=== PATIENT | female | born 2000 | race Two or more races ===

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

== ENCOUNTER 2023-04-18 07:21 | Inpatient (IN) ==
[2023-04-18] MEDS: MoRPHine SULFATE 2 MG/ML CARP IV STA (07:47)
[2023-04-18] MEDS: SODIUM CHLORIDE 0.9% 500 ML IV ONE (07:47)
[2023-04-18] MEDS: ONDANSETRON INJ 2 MG/ML 2 ML VIAL IV STA (07:48)
--- NOTE | 2023-04-18 07:54 | Emergency Department Note ---
Impression & Plan SOB (shortness of breath), Pulmonary emboli, Pleuritic chest pain, Tachycardia ED Provider Note NAME: CLARA CRUMP AGE: 22 SEX: F : 2000 ARRIVES VIA: Walk-In INFORMANT: [Patient] ED PROVIDER(S): [Jose Servin MD] CHIEF COMPLAINT: Abnormal testing HISTORY OF PRESENT ILLNESS: The patient is a 22-year-old female who states that she is back as advised for a potential clot in her lung. The patient was seen 2 days ago for discomfort and a CT of the chest was done for PE. It was read as negative. Patient was here earlier today for ongoing symptoms and a workup was done showing suspected pneumonia. After her discharge today, radiology re-read the CT from 2 days ago and felt that a PE may have been present and missed. The patient was thus called back for reevaluation. The patient states that she had an extensive plastic surgery procedure in [place] about a month ago. [place] and arrived on April 03---15 days ago. The patient states that she has noticed some shortness of breath and also some right posterior back pain. The back pain has become pleuritic. The discomfort and the shortness of breath is what prompted her visit to our ER. The patient did have a fever at times with symptoms, she had a cough but that seems to have resolved. The patient has not noticed pain in her calves but she has noticed some bilateral leg swelling since surgery. PMHx/PSHx/Social Hx: See Below PHYSICAL EXAM: GENERAL: Patient is in no acute distress. HEENT: No acute trauma, normocephalic atraumatic, mucous membranes moist, no nasal congestion. NECK: No stridor, no adenopathy, no meningismus, trachea is midline. LUNGS: Clear to auscultation bilaterally, no wheeze, no rhonchi, breath sounds equal. Breath sounds diminished bilaterally. HEART: Mildly tachycardic, regular rhythm, no murmurs. ABDOMEN: Soft, nontender, no peritonitis. EXTREMITIES: No cyanosis, full range of motion of all the joints without pain or difficulty. NEUROLOGIC: Oriented x 3, no acute motor or sensory deficits, no focal weakness. SKIN: No jaundice, no diaphoresis. DIFFERENTIAL DIAGNOSIS: PE, pneumonia, pneumothorax, coagulopathy, pleurisy, among others. EMERGENCY DEPARTMENT PROCEDURES: MEDICAL DECISION MAKING: The patient had been called back to this ED as a radiology over-read showed concern for possible PE. Patient's initial CT imaging was read as no findings of PE. The patient did complain of pleuritic right-sided chest pain. She had recently traveled by plane and had recently undergone a surgical procedure. ECG showed a sinus rhythm, no acute ischemia. Cardiac enzyme testing x 1 does not show evidence for acute cardiac injury. On exam, her lungs were clear. She was not hypoxic or toxic. A REPEAT CT was done for PE. Bilateral segmental and subsegmental pulmonary emboli were seen. A pulmonary infarct was thought likely. I talked to the patient and her family about the findings. Admission is clearly indicated. The patient was ordered for IV morphine as needed for pain. She was given an IV heparin bolus and placed on a heparin drip. She was ordered for IV Zofran as needed for nausea. A 500 cc saline bolus was ordered. I did speak with case management, the on-call hospitalist has been consulted. I do think the findings on today's CT explain her discomfort. Prior/Outside records/notes reviewed: Previous ED notes from prior visits for the same complaint. ECG per my interpretation: Indication was chest pain. The ECG shows a normal sinus rhythm with a rate of 85. There is no ST elevation, no PVCs. There is some poor R wave progression. QTc is 437. Continuous Cardiac Monitoring per my interpretation: An order was placed for continuous cardiac monitoring. The monitor shows a rate of 96 with normal sinus rhythm. Imaging/x-ray results per my interpretation: Chronic Medical/Social conditions affecting care: College student Care/Management discussed with: Case management, the on-call hospitalist. Level of care consideration(s): After review of the information above and other included data: --I believe the patient requires escalation of care to admission DISPOSITION: Admission Past Med/Surg History Medical History Eating disorder Borderline personality disorder Depression Acute pancreatitis Morbid obesity with BMI of 40.0-44.9, adult Surgical History Status following surgery for weight loss GASTRIC BALLOON Family History Other Eating disorder Social History Smoking Status: Never smoker Hx Alcohol Use: No Hx Substance Use: No Preferred Language: Upper Sorbian Communication Ability: Effective Offset Printing Pressmen Required: No Beliefs That Will Affect Care: None Current Living Situation: Other Current Living Situation Comment: roommate current occupational status: student Feels Safe at Home: Yes Assistive Devices: None Allergies Allergies Allergy/AdvReac Type Severity Reaction Status Date / Time No Known Allergies Allergy Verified 04/18/23 08:41 Home Meds Previous Rx's Medication Instructions Recorded amoxicillin 875 mg-potassium 1 tab PO BID 5 days #10 tabs 04/17/23 clavulanate 125 mg tablet doxycycline hyclate 100 mg capsule 100 mg PO BID 5 days #10 caps 04/17/23 ondansetron 4 mg disintegrating 4 mg PO Q6H PRN nausea and 04/18/23 tablet vomiting #12 tabs Results & Data (ED) Vital Signs Vital Signs - 24 hr 04/18/23 07:22 04/18/23 07:52 04/18/23 08:21 Temperature 36.5 C Temperature Source Temporal Artery Scan Pulse Rate 96 H 94 H 98 H Pulse Rate from SpO2 Sensor Pulse Rhythm Regular Respiratory Rate 20 20 Respiratory Effort / Characteristics Non-Labored Spontaneous Respiratory Depth Normal Blood Pressure 121/47 L 144/89 H Blood Pressure Mean 71 102 Pulse Oximetry 97 99 Oxygen Delivery Method Room Air Sepsis Recent Fever Within 48 Hours No Sepsis New/Unexplained Change in Mental Status No Sepsis Action Taken by Nursing No Action Required 04/18/23 08:30 04/18/23 09:46 Temperature Temperature Source Pulse Rate 83 84 Pulse Rate from SpO2 Sensor 82 Pulse Rhythm Respiratory Rate 20 22 Respiratory Effort / Characteristics Respiratory Depth Blood Pressure 136/75 Blood Pressure Mean 96 Pulse Oximetry 100 99 Oxygen Delivery Method Sepsis Recent Fever Within 48 Hours Sepsis New/Unexplained Change in Mental Status Sepsis Action Taken by Custodial Medications Current Medication List: was personally reviewed by me Laboratory Data Attestation: I reviewed the patient's lab results. Lab Results 04/18/23 Range/Units 07:38 Troponin I High Sens 2.8 (0-14) pg/ml Administered Medications Acetaminophen (Acetaminophen 325 Mg Tab) 650 mg PO Q6H PRN PRN Reason: pain(1-4),headache,fever Stop: 05/18/23 10:29 Last Admin: 04/18/23 11:14 Dose: 650 mg Documented By: GINNA Heparin Sodium/Dextrose (Heparin Sodium/Dextrose) 25,000 units in 500 mls @ 16 mls/hr IV .Q24H ALICE; Protocol Stop: 05/18/23 09:14 Last Admin: 04/18/23 10:02 Dose: 800 units/hr, 16 mls/hr Documented By: MMRodri Co-signed By: GLEN Discontinued Medications Heparin Sodium (Porcine) (Heparin Sod (Porcine) 1000 Unit/Ml) 4,000 units IV NOW ONE Stop: 04/18/23 09:46 Last Admin: 04/18/23 10:02 Dose: 4,000 units Documented By: AMAURY Co-signed By: GLEN Heparin Sodium/Dextrose (Heparin Iv Adult Wt-Based Low-Dose W/ Initial Bolus Protocol) 1 each IV NOW STA; Protocol Stop: 04/18/23 08:59 Last Admin: 04/18/23 10:12 Dose: Not Given Documented By: GLEN Hydromorphone HCl (Hydromorphone Inj 0.5 Mg/0.5 Ml Syr) 0.5 mg IV Q6H PRN PRN Reason: Pain(5+) Stop: 05/02/23 12:28 Last Admin: 04/18/23 12:43 Dose: 0.5 mg Documented By: GINNA Sodium Chloride (Nss) 500 mls @ 999 mls/hr IV .Q31M ONE Stop: 04/18/23 07:53 Last Infusion: 04/18/23 08:24 Dose: Infused Documented By: Admin: 04/18/23 07:47 Dose: 999 mls/hr Documented By: GLEN Ioversol (Optiray 320 125ml) 118 ml IV ONCE ONE Stop: 04/18/23 08:19 Last Admin: 04/18/23 08:18 Dose: 118 ml Documented By: KRISTEL Morphine Sulfate (Morphine Sulfate 2 Mg/Ml Carp) 2 mg IV NOW STA Stop: 04/18/23 07:24 Last Admin: 04/18/23 07:47 Dose: 2 mg Documented By: GLEN Morphine Sulfate (Morphine Sulfate 2 Mg/Ml Carp) 2 mg IV Q15M PRN PRN Reason: Pain Stop: 05/02/23 07:22 Last Admin: 04/18/23 08:22 Dose: 2 mg Documented By: GLEN Morphine Sulfate (Morphine Sulfate 2 Mg/Ml Carp) 2 mg IV Q3H PRN PRN Reason: Pain(5+) Stop: 05/02/23 07:22 Last Admin: 04/18/23 10:42 Dose: 2 mg Documented By: GLEN Ondansetron HCl (Ondansetron Inj 2 Mg/Ml 2 Ml Vial) 4 mg IV NOW STA Stop: 04/18/23 07:24 Last Admin: 04/18/23 07:48 Dose: 4 mg Documented By: GLEN Imaging Data Radiologist's Impression: Chest CTA 04/18/23 07:23 CT angio chest PE protocol CT DOSE: 742.57 mGy.cm HISTORY: 22 years-old Female with PE. Acute shortness of breath TECHNIQUE: Multiple CTA images of the chest were obtained after the intravenous administration of 116 ml Optiray. Coronal and sagittal MIPS were obtained from the axial data set and were submitted for review. All measurements were obtained according to NASCET criteria. A dose lowering technique was utilized adhering to the principles of ALARA. COMPARISON: Chest radiograph of same day, CTA chest 04/16/2023 FINDINGS: CTA: The heart is normal in size. No pericardial effusion. Normal thoracic aorta. There is a considerable amount of bilateral segmental and subsegmental pulmonary emboli, most pronounced in the right lower lobe. Mild straightening of the i ntraventricular septum. CT CHEST: Borderline enlarged 10 mm right hilar lymph node. Unremarkable thyroid. Small right pleural effusion. No pneumothorax. Minimal subsegmental left basilar atelectasis. Intralobular septal thickening with groundglass and consolidative opacities throughout the basal segments of the right lower lobe, progressed from prior. No acute upper abdominal abnormality. Bilateral intact prepectoral breast implants. Possible 9 mm lesion of the lateral left breast on image 9 series 4. No acute fracture. IMPRESSION: 1. Bilateral segmental and subsegmental pulmonary emboli, most pronounced within the right lower lobe. Additionally, there is mild straightening of the int raventricular septum which may represent associated right heart strain. 2. Progressively worsened right lower lobe groundglass and airspace opacities, likely representing a combination of atelectasis with pulmonary infarcts. Pneumonia considered less likely. 3. Small right pleural effusion. ACT 112: Negative or not required by law. The above report was generated using voice recognition software. It may contain grammatical, syntax or spelling errors. Electronically signed by: Saw Diaz M.D. 04/18/2023 8:50 AM Discharge Plan Visit Data Chief Complaint: Abnormal Labs/Diagnostic Testing Stated Complaint: ABNORMAL XRAY,SOMEONE CALLED HER TO COME BACK ED Provider: Jose Servin Discharge Problem: SOB (shortness of breath), Pulmonary emboli, Pleuritic chest pain, Tachycardia Patient Disposition: Admitted As Inpatient Condition: Fair Discharge Instructions Interventions: ED Discharge Assessment Last Done: 04/18/23 11:36 Discharge Problem: Pulmonary emboli Qualifiers: Pulmonary embolism type: unspecified Chronicity: acute Acute cor pulmonale presence: unspecified Qualified Code(s): I26.99 - Other pulmonary embolism without acute cor pulmonale
[2023-04-18] MEDS: OPTIRAY 320 125ml IV ONE (08:18)
[2023-04-18] MEDS: MoRPHine SULFATE 2 MG/ML CARP IV PRN ×2 (08:22→10:42)
--- NOTE | 2023-04-18 08:52 | CT Scan Report ---
CT angio chest PE protocol CT DOSE: 742.57 mGy.cm HISTORY: 22 years-old Female with PE. Acute shortness of breath TECHNIQUE: Multiple CTA images of the chest were obtained after the intravenous administration of 116 ml Optiray. Coronal and sagittal MIPS were obtained from the axial data set and were submitted for review. All measurements were obtained according to NASCET criteria. A dose lowering technique was u tilized adhering to the principles of ALARA. COMPARISON: Chest radiograph of same day, CTA chest 04/16/2023 FINDINGS: CTA: The heart is normal in size. No pericardial effusion. Normal thoracic aorta. There is a considerable amount of bilateral segmental and subsegmental pulmonary emboli, most pronounced in the right lower l obe. Mild straightening of the intraventricular septum. CT CHEST: Borderline enlarged 10 mm right hilar lymph node. Unremarkable thyroid. Small right pleural effusion. No pneumothorax. Minimal subsegmental left basilar atelectasis. Intralobular septal thickening with groundglass and consolidative opacities throughout the basal segments of the right lower lobe, progre ssed from prior. No acute upper abdominal abnormality. Bilateral intact prepectoral breast implants. Possible 9 mm les ion of the lateral left breast on image 9 series 4. No acute fracture. IMPRESSION: 1. Bilateral segmental and subsegmental pulmonary emboli, most pronounced within the right lower lobe . Additionally, there is mild straightening of the intraventricular septum which may represent associ ated right heart strain. 2. Progressively worsened right lower lobe groundglass and airspace opacities, likely representing a combination of atelectasis with pulmonary infarcts. Pneumonia considered less likely. 3. Small right pleural effusion. ACT 112: Negative or not required by law. The above report was generated using voice recognition software. It may contain grammatical, syntax o r spelling errors. Electronically signed by: Saw Diaz M.D. 04/18/2023 8:50 AM
[2023-04-18] MEDS ORDERED: HEPARIN SOD (PORCINE) 1000 UNIT/ML IV ONE (09:14)
[2023-04-18] MEDS: HEPARIN SODIUM/DEXTROSE 25,000 UNITS/500 ML BAG IV SCH (10:02)
[2023-04-18] MEDS: HEPARIN SOD (PORCINE) 1000 UNIT/ML IV ONE (10:02)
--- NOTE | 2023-04-18 10:09 | History & Physical Report ---
Date of Service April 18, 2023 Assessment & Plan (1) Pulmonary embolism: Plan: -Admit to the med/tele on continuous pulse oximetry -Currently hemodynamically stable, without tachycardia, and stable on RA -At this time we would consider this a provoked PE as she recently had multiple surgical procedures with multiple long flights -Started to develop Bl LE pain/paresthesias on her 18 hour flight from [facility] to the -Was initially evaluated in the ED on 04/16/23 and CTA of the chest was ordered to monitor for PE; unfortunately, the PE's were missed by [facility]. -One of our in-house radiologists re-read her CTA chest after she presented back to the ED with worsening symptoms and spotted the PE's -Has been started on a heparin drip, we will continue this on discharge -When stable can transition to PO anticoagulation -Will obtain TTE and BL LE venous dopplers for further evaluation -Tylenol and morphine for pain -Regualar diet -AM CBC, BMP, PT/INR (2) SOB (shortness of breath): Plan: -Due to her BL PE's diagnosed this am -The Nonspecific right lower lung airspace opacity noted on chest xray today is likely due to infarction from her PE's -Will hold Augmentin and Doxycycline prescribed earlier today Plan The patient was discussed with Dr. Raymond at the time of the admission History of Present Illness Chief Complaint: Abnormal CT results Primary Care Provider: [facility] Chencho is a 22 year old female with a PMH significant for Borderline Personality disorder, bulimia, and depression who presented to the [facility] ED on 04/18/23 after being told about abnormal CT results. Per the ED staff, the patient was recently in [place] and had multiple cosmetic procedures done including a gastrointestinal procedure for weight loss, facial cosmetic surgery, and breast augmentation. She recently flew back to the [place] on 04/03 and had been experiencing progressive SOB. She initially presented to the [facility] ED on 04/16 and had an extensive workup, including CTA of the chest for possible PE. The initial read of the CTA chest stated there was no PE. She returned again to the ED this am with continued SOB. Chest xray was obtained at that time which was read as "Nonspecific right lower lung airspace opacity. ". A repeat CTA of the chest was not obtained at that time as she had just had one on 04/16 which was reported as negative. She was discharged on Augmentin for possible pneumonia. Due to the history of the patient's complaints, one of our in-house Radiologists reviewed the CTA from 04/16 and noted Bilateral segmental and subsegmental pulmonary emboli. The patient was started on a heparin drip and the ED staff spoke with the patient and her parents regarding the events leading to diagnosis today. At the time of the exam the patient was sitting in bed in no acute distress, she is hemodynamically stable and stable on RA. She confirms that she had multiple cosmetic procedures in [place] recently as she lost a large amount of weight over the past year. Approximately 3 weeks ago she flew from [place] back home to [facility], which was a 3 hour fight. She then had an 18 hour flight from [facility] back to the . She states that during the flight she was wearing her compression socks and had planned to get up multiple times during the flight to walk. Unfortunately she slept longer than expected. When she woke she was experiencing BL leg pain with mild paresthesias. She massaged both legs and walked in the plane after development of symptoms. She states that she started to develop SOB during the flight. Approximately 3 days after arriving back in the she started to develop right lower chest pain with radiation into the right shoulder with increased SOB. She does not take control or smoke. Her pain is currently a 6/10 and she denies any other complaints at this time. Please refer to Dr. Raymond's attestation for any changes to the treatment plan Allergies Allergy/AdvReac Type Severity Reaction Status Date / Time No Known Allergies Allergy Verified 04/18/23 08:41 Home Medications Medication Instructions Recorded Confirmed Type amoxicillin 875 mg-potassium 1 tab PO BID 5 days #10 tabs 04/17/23 04/18/23 Rx clavulanate 125 mg tablet doxycycline hyclate 100 mg capsule 100 mg PO BID 5 days #10 caps 04/17/23 04/18/23 Rx ondansetron 4 mg disintegrating 4 mg PO Q6H PRN nausea and 04/18/23 04/18/23 Rx tablet vomiting #12 tabs Past Med/Surg History Medical History Eating disorder Borderline personality disorder Depression Acute pancreatitis Morbid obesity with BMI of 40.0-44.9, adult Surgical History Status following surgery for weight loss GASTRIC BALLOON Family History Other Eating disorder Social History Smoking Status: Never smoker Hx Alcohol Use: No Hx Substance Use: No Preferred Language: Maori Communication Ability: Effective Anodiser Required: No Beliefs That Will Affect Care: None Current Living Situation: Other Current Living Situation Comment: roommate current occupational status: student Feels Safe at Home: Yes Assistive Devices: None Physical Exam Physical Exam: Physical Exam: General: In no acute distress, stated age, well-nourished, good hygiene HEENT: Normocephalic, atraumatic, no scleral icterus, pupils around round, symmetrical, and reactive to light, moist mucus membranes, trachea midline, no thyromegaly Chest/Pulm: No respiratory distress, pain with deep inspiration, symmetrical chest expansion, clear breath sounds throughout Cardiac: RRR, no murmurs noted Abdomen: Negative for ascites and bruising, normoactive bowel sounds, soft, non-tender to palpation throughout Musculoskeletal: Symmetrical and without signs of acute trauma, upper and lower extremities with full ROM, no atrophy, spasticity, or flaccidity Extremities: Radial, dorsalis pedis, and posterior tibial pulses are intact and symmetrical, no edema noted in the BL LE's Skin: Warm, dry, no rashes , lesions, or scars noted Neuro: Alert and oriented to person, place, month, year, and president, no focal defects, no tremors noted Psych: No acute distress, calm and cooperative during the exam Results & Data Results & Data Vital Signs (Past 12 Hours) Vital Signs Temp Pulse Resp BP Pulse Ox O2 Del Method 04/18/23 09:46 84 22 136/75 99 04/18/23 08:30 83 20 100 04/18/23 08:21 98 H 04/18/23 07:52 94 H 20 144/89 H 99 04/18/23 07:22 36.5 C 96 H 20 121/47 L 97 Room Air Diagnostic Findings Chest CTA 04/18/23 07:23 CT angio chest PE protocol CT DOSE: 742.57 mGy.cm HISTORY: 22 years-old Female with PE. Acute shortness of breath TECHNIQUE: Multiple CTA images of the chest were obtained after the intravenous administration of 116 ml Optiray. Coronal and sagittal MIPS were obtained from the axial data set and were submitted for review. All measurements were obtained according to NASCET criteria. A dose lowering technique was utilized adhering to the principles of ALARA. COMPARISON: Chest radiograph of same day, CTA chest 04/16/2023 FINDINGS: CTA: The heart is normal in size. No pericardial effusion. Normal thoracic aorta. There is a considerable amount of bilateral segmental and subsegmental pulmonary emboli, most pronounced in the right lower lobe. Mild straightening of the intraventricular septum. CT CHEST: Borderline enlarged 10 mm right hilar lymph node. Unremarkable thyroid. Small right pleural effusion. No pneumothorax. Minimal subsegmental left basilar atelectasis. Intralobular septal thickening with groundglass and consolidative opacities throughout the basal segments of the right lower lobe, progressed from prior. No acute upper abdominal abnormality. Bilateral intact prepectoral breast implants. Possible 9 mm lesion of the lateral left breast on image 9 series 4. No acute fracture. IMPRESSION: 1. Bilateral segmental and subsegmental pulmonary emboli, most pronounced within the right lower lobe. Additionally, there is mild straightening of the intraventricular septum which may represent associated right heart strain. 2. Progressively worsened right lower lobe groundglass and airspace opacities, likely representing a combination of atelectasis with pulmonary infarcts. Pneumonia considered less likely. 3. Small right pleural effusion. ACT 112: Negative or not required by law. The above report was generated using voice recognition software. It may contain grammatical, syntax or spelling errors. Electronically signed by: Saw Diaz M.D. 04/18/2023 8:50 AM ECG Additional Comments: Normal sinus rhythm Cannot rule out Anterior infarct , age undetermined Abnormal ECG When compared with ECG of 16-APR-2023 22:16, No significant change was found Code Status & VTE Plan Code Status Full code VTE Prophylaxis Plan VTE Prophylaxis will be ordered: Yes Supervising Physician Co-Signing Physician Notes I personally saw and examined the patient. I verified all roland points and agree with Rah Wall PA-C with the following exceptions and/or additions: 22-year-old female presents to the ER after being called back due to a reread of her previous CT scan showing pulmonary embolism. History confirmed as above. O/E HS increased rate, regular rhythm, Chest poor inspiratory effort, no crackles, rhonchi or wheezing, Abdo SNT, no calf tenderness A/P Acute pulmonary embolism - intravenous heparin. Can likely switch to PO medication tomorrow if stable. Pulmonary infarction - increased risk of pneumonia although suspect this is just pulmonary infarction at this stage. Increase her pain medication as not taking adequate deep breaths. Acetaminophen 1 g p.o. TID, Toradol 15 mg q.6 hourly as needed, oxycodone 5 to 10 mg q.4 hourly as needed third-line, if unable to have adequate pain control with oral medications will continue Dilaudid 0.5 mg q.2 hourly as needed. Incentive spirometer PG Care Time/CCT Total # of Minutes Spent Total Time Spent with Patient: Total time spent is greater than 50% in coordination of care (as documented) at patient's floor/unit and/or counseling patient: [place] [address] INT INP/OBS CARE 2/55MIN Patient Type Established Medical Decision Making High Complexity Diagnoses Pulmonary embolism I26.99 SOB (shortness of breath) R06.02
[2023-04-18] MEDS: Heparin IV Adult Wt-Based Low-Dose w/ INITIAL Bolus Protocol IV STA (10:12)
[2023-04-18] MEDS: ACETAMINOPHEN 325 MG TAB PO PRN (11:14)
--- NOTE | 2023-04-18 12:25 | Ultrasound Report ---
BILATERAL LOWER EXTREMITY VENOUS DOPPLER HISTORY: Acute pulmonary emboli New PE's; recent surgery and travel COMPARISON STUDY: CT chest of same day FINDINGS: Slow venous flow is noted bilaterally. No left-sided DVT identified. No thrombus identified within the right lower extremity above the level of the knee. Occlusive likely acute thrombus of the right posterior tibial vein. Additionally, there is a thrombosed superficial v ein within the right medial calf measuring up to approximately 2 cm in length. IMPRESSION: 1. Right lower extremity DVT, likely acute with possible right lower leg superficial venous thrombosi s. 2. No left lower extremity DVT. ACT 112: Negative or not required by law. Electronically signed by: Saw Diaz M.D. 04/18/2023 12:24 PM
[2023-04-18] MEDS ORDERED: HYDROmorphone INJ 0.5 MG/0.5 ML SYR IV PRN (12:29)
[2023-04-18] MEDS ORDERED: NALOXONE HCL 0.4 MG/1 ML VIAL/CARP IV PRN (12:30)
[2023-04-18] MEDS: HYDROmorphone INJ 0.5 MG/0.5 ML SYR IV PRN ×2 (12:43→18:14)
[2023-04-18] MEDS: KETOROLAC TROMETHAMINE 15 MG/ML VIAL IV ONE (14:32)
[2023-04-18 17:00] LABS: ANTI-Xa, UFH(UnfractionatedHep < 0.10 IU/ml (0.3-0.7)
[2023-04-18] MEDS: HEPARIN SOD (PORCINE) 1000 UNIT/ML ONE (17:16)
--- NOTE | 2023-04-18 18:09 | XCELERA ---
[id number]
--- NOTE | 2023-04-18 19:59 | Electrocardiogram Report ---
Test Reason : Blood Pressure : / mmHG Vent. Rate : 085 BPM Atrial Rate : 085 BPM P-R Int : 138 ms QRS Dur : 074 ms QT Int : 368 ms P-R-T Axes : 023 010 020 degrees QTc Int : 437 ms Normal sinus rhythm When compared with ECG of 16-APR-2023 22:16, No significant change was found Confirmed by Héctor Ellison ([id number] on 04/18/2023 7:59:17 PM Referred By: REFERRED SELF Confirmed By:Renato Ellison
[2023-04-18] MEDS: oxyCODONE HCL IR 5 MG TAB (IMMEDIATE RELEASE) PO PRN (20:56)
[2023-04-18] MEDS: ONDANSETRON INJ 2 MG/ML 2 ML VIAL IV PRN (20:56)
[2023-04-18] MEDS: ACETAMINOPHEN 500 MG TAB PO SCH (21:32)
[2023-04-18 23:34] LABS: ANTI-Xa, UFH(UnfractionatedHep < 0.10 IU/ml (0.3-0.7)
[2023-04-19] MEDS: HEPARIN SOD (PORCINE) 1000 UNIT/ML IV ONE (01:59)
[2023-04-19 04:29] LABS: Anion Gap 7 (3-11); BUN Creatinine Ratio 23.2 (10-20); Blood Urea Nitrogen 13 mg/dl (6-23); Calcium 8.8 mg/dl (8.6-10.3); Carbon Dioxide 24 mmol/L (21-32); Chloride 103 mmol/L (98-107); Creatinine Clr Calc Pharmacy 173.8 ml/min; Est GFR (African American) > 150.0 ml/min; Est GFR (Non-African American) 134.2 ml/min; Glucose 151 mg/dl (70-99(Fasting)); Magnesium 1.6 mg/dl (1.7-2.4); Potassium 3.7 mmol/L (3.5-5.1); Sodium 134 mmol/L (136-145)
[2023-04-19 04:30] LABS: Hematocrit (blood only) 29.9 % (37.0-47.0); Hemoglobin 9.2 g/dl (12.0-16.0); Mean Corpuscular Hemoglobin 25.7 pg (25.0-34.0); Mean Corpuscular Hgb Conc 30.8 g/dL (32.0-36.0); Mean Corpuscular Volume 83.5 fL (80.0-100.0); Mean Platelet Volume 10.7 fL (9.4-12.4); Platelet Count 219 K/uL (130-400); RDW Coefficient of Variation 12.8 % (11.5-14.5); Red Blood Count 3.58 M/uL (4.20-5.40); White Blood Count 7.67 K/ul (4.8-10.8)
[2023-04-19 04:37] LABS: INR 1.2 (0.9-1.1); Prothrombin Time 12.6 Seconds (9.0-12.0)
[2023-04-19] MEDS: HEPARIN SOD (PORCINE) 1000 UNIT/ML ONE ×2 (06:13→09:41)
[2023-04-19] MEDS: Nursing to Pharmacy Communication SCH (06:13)
[2023-04-19 09:04] LABS: ANTI-Xa, UFH(UnfractionatedHep 0.13 IU/ml (0.3-0.7)
[2023-04-19] MEDS: MAGNESIUM OXIDE 400 MG TAB PO ONE (09:35)
--- NOTE | 2023-04-19 12:01 | Hospitalist Progress Note ---
Date of Service April 19, 2023 Assessment & Plan (1) Pulmonary embolism: Plan: Acute pulmonary embolism -Likely provoked PE from long flight in postoperative setting though with pt's FMH of VTE in father and grandfather, can certainly have a genetic component to presentation -Chest CTA noting b/l segmental and subsegmental PE greatest in RLL, interventricular septal thickening noting possible R heart strain -TTE unremarkable, no R heart strain noted -Heparin initiated in ER, will transition to Eliquis tonight -Minimum 3-6 months of treatment -Pain control with oxycodone PRN, Tylenol -Hypercoagulability studies pending -Stable respiratory status on RA at present Acute DVT of R posterior tibial vein -Provoked by above- extended flight, possible genetic component -Confirmed with venous Doppler -Also noted associated thrombosed superficial vein along R medial calf up to 2 cm in length -Management as above Abdominal pain -Pt reports ongoing abdominal pain with abdominal wall edema s/p 1 month after liposuction, breast augmentation, fat transfer in [place] -No acute abdomen on exam, deferring CTAP for now -General surgery consulted Hypomagnesemia -Mg 1.6 on admission -Repleted -Monitor Mg FENGI: Regular Code status: Full DVT prophylaxis: Heparin -> Eliquis tonight Isolation: None Unit: Medical/surgical with telemetry Disposition planning: Anticipate home Admission and Anticipated Discharge Date Admission Date: April 18, 2023 Supervising Physician Co-Signing Physician Notes ATTESTATION I also saw the patient and confirmed roland portions of the history and exam. I agree with the impression and plan in the resident documentation, and as summarized below. Feeling a little better midmorning. Able to take a slightly deeper breath that she could previously. EXAM 161/82, 87, 18, 36.9, 100% on room air Pleasant alert. Little tired but understandably so. Heart regular rhythm, slightly tachycardic. Lungs decreased in the bases; this improves with respiratory coaching, although there is some splinting appreciated. Abdomen is generally nontender; examination of surgical wounds deferred at this time Extremities without edema; no calf tenderness appreciated. DATA Labs Hemoglobin 9.2 Sodium 134, magnesium 1.6 IMPRESSION & PLAN Pulmonary embolism Certainly provoking factors, although noted family history of same Will check hypercoagulable studies Likely transition to oral agent Echocardiogram reassuring Additional per resident documentation Subjective Acute events overnight- none. Pt examined at bedside. Reports feeling slightly better than on admission, able to inhale more easily. She is still having some R sided chest pain along rib distribution but this is relieved by oxycodone. Review of Systems Review of Systems: Per HPI/Subjective Physical Exam Physical Exam: Physical Exam: General: In no acute distress, stated age, well-nourished, good hygiene HEENT: Normocephalic, atraumatic, no scleral icterus, moist mucus membranes, trachea midline Chest/Pulm: No respiratory distress, some pain with deep inspiration, symmetrical chest expansion, diminished breath sounds diffusely and greatest in RLL Cardiac: RRR, no murmurs noted Abdomen: Negative for ascites and bruising, normoactive bowel sounds, soft, mildly tender along lower abdominal wall over surgical dressings with mild edema though no overlying erythema, drainage Skin: Warm, dry, no rashes , lesions, or scars noted Extremities: no palpable swelling or tenderness of b/l LE, negative Suad signs b/l Results & Data Results & Data Vital Signs (Past 12 Hours) Vital Signs Pulse Pulse Resp BP Pulse Ox Pulse Ox O2 Del Method 04/19/23 11:27 84 16 112/52 L 98 Room Air 04/19/23 08:40 95 H 24 133/73 98 Room Air 04/19/23 08:40 97 04/19/23 07:40 83 04/19/23 02:12 102 H 22 140/50 L 97 Room Air O2 Del Method 04/19/23 11:27 04/19/23 08:40 04/19/23 08:40 Room Air 04/19/23 07:40 04/19/23 02:12 Resident Activity Tracking Resident Involvement: Resident Care Provided Care Provided: Adult Hospital Medicine
[2023-04-19] MEDS: KETOROLAC TROMETHAMINE 15 MG/ML VIAL IV PRN (12:19)
[2023-04-19 16:44] LABS: ANTI-Xa, UFH(UnfractionatedHep 0.17 IU/ml (0.3-0.7)
[2023-04-19] MEDS ORDERED: HEPARIN SOD (PORCINE) 1000 UNIT/ML IV ONE (16:47)
[2023-04-19] MEDS: HEPARIN IV BOLUS 3,000 UNITS in SYRINGE 0 ML IV ONE (17:14)
--- NOTE | 2023-04-19 18:26 | CT Scan Report ---
CT abd pelvis wo con CLINICAL HISTORY: abdominal pain, recent surgeries 1 month prior TECHNIQUE: Helical axial images of the abdomen and pelvis were obtained. Automated dose lowering tech niques and/or adjustment according to patient size were utilized for this exam. This exam was perfor med without intravenous contrast. CT DOSE: 1327.76 mGy.cm COMPARISON: Comparison is made to CT abdomen pelvis 12/21/2021 FINDINGS: Lower chest: Airspace opacity is noted in the right lower lobe with associated pleural effusion. Liver: Unremarkable. No focal lesions are seen. Gallbladder and biliary tree: Cholelithiasis is seen without evidence of cholecystitis. No intra- or extrahepatic biliary ductal dilation. Pancreas: Unremarkable, no focal lesions. Spleen: Unremarkable. Adrenals: Unremarkable. Kidneys and ureters: Unremarkable. Bladder: Limited evaluation due to underdistention. Reproductive organs: Unremarkable. Bowel: The appendix is normal. Lymph nodes Retroperitoneal: Unremarkable. Pelvic: Unremarkable. Mesenteric: Unremarkable. Peritoneum: Normal. Vessels: Unremarkable. Abdominal wall: Unremarkable. Bones: Unremarkable. IMPRESSION: 1. Right lower lobe airspace opacity and pleural effusion are seen compatible with previously noted infarcts, progressed from prior exam. 2. Cholelithiasis without cholecystitis. 3. Additional findings as above. ACT 112: Negative or not required by law. Electronically signed by: Miguel Cerrato M.D. 04/19/2023 6:24 PM
[2023-04-19] MEDS: APIXABAN 5 MG TABLET PO SCH (21:25)
[2023-04-19] MEDS: LACTATED RINGER'S 1,000 ML IV SCH (21:26)
[2023-04-19 21:38] LABS: Appearance Urine Clear (Clear); Bilirubin Urine Negative (Negative); Blood Urine 1+ (Negative); Color Urine Dark Yellow; Glucose Urine UA Negative (Negative); Ketones Urine Negative (Negative); Leukocyte Esterase Urine Negative (Negative); Nitrite Urine Negative (Negative); Protein Urine Trace (Negative); Specific Gravity Urine 1.031 (1.000-1.030); Urobilinogen Urine Negative (Negative)
[2023-04-19 21:49] LABS: Bacteria Urine 1+ (Negative); Epithelial Cell Urine >30 /lpf (0-5); Hyaline Casts Urine 0-5 /lpf (0-5); Mucus Urine Present (None Prsent); WBC Urine 0-5 /hpf (0-5)
[2023-04-19] MEDS: STOP HEPARIN DRIP ORDER ONE (21:57)
[2023-04-19 23:27] LABS: ANTI-Xa, UFH(UnfractionatedHep < 0.10 IU/ml (0.3-0.7)
[2023-04-20] MEDS: HYDROmorphone INJ 0.5 MG/0.5 ML SYR IV PRN (05:00)
[2023-04-20 06:31] LABS: Hemoglobin 9.1 g/dl (12.0-16.0); Mean Corpuscular Hemoglobin 26.4 pg (25.0-34.0); Mean Corpuscular Hgb Conc 32.5 g/dL (32.0-36.0); Mean Corpuscular Volume 81.2 fL (80.0-100.0); Mean Platelet Volume 10.3 fL (9.4-12.4); Platelet Count 245 K/uL (130-400); RDW Standard Deviation 38.6 fL (36.4-46.3); Red Blood Count 3.45 M/uL (4.20-5.40); White Blood Count 6.47 K/ul (4.8-10.8)
[2023-04-20 06:54] LABS: INR 1.1 (0.9-1.1); Prothrombin Time 12.4 Seconds (9.0-12.0)
[2023-04-20 06:57] LABS: Anion Gap 7 (3-11); BUN Creatinine Ratio 18.4 (10-20); Blood Urea Nitrogen 9 mg/dl (6-23); Calcium 9.1 mg/dl (8.6-10.3); Carbon Dioxide 26 mmol/L (21-32); Chloride 103 mmol/L (98-107); Creatinine Clr Calc Pharmacy 198.7 ml/min; Est GFR (African American) > 150.0 ml/min; Est GFR (Non-African American) 140.3 ml/min; Glucose 90 mg/dl (70-99(Fasting)); Magnesium 1.8 mg/dl (1.7-2.4); Potassium 4.1 mmol/L (3.5-5.1); Sodium 136 mmol/L (136-145)
[2023-04-20] MEDS: DOCUSATE SODIUM 100 MG CAP PO ONE (10:10)
--- NOTE | 2023-04-20 10:56 | Hospitalist Progress Note ---
Date of Service April 20, 2023 Assessment & Plan (1) Pulmonary embolism: Plan: #Acute pulmonary embolism -Likely provoked PE from long flight in postoperative setting though with pt's FMH of VTE in father and grandfather, can certainly have a genetic component to presentation -Chest CTA noting b/l segmental and subsegmental PE greatest in RLL, interventricular septal thickening noting possible R heart strain -TTE unremarkable, no R heart strain noted -cont. eliquis -Minimum 3-6 months of treatment -Pain control with oxycodone PRN, Tylenol, toradol -Hypercoagulability studies pending -Stable respiratory status on RA at present #Acute DVT of R posterior tibial vein -Provoked by above- extended flight, possible genetic component -Confirmed with venous Doppler -Also noted associated thrombosed superficial vein along R medial calf up to 2 cm in length -Management as above #Vaginal bleeding -per patient having bleeding with clots. Last menstrual period 2.5 weeks ago. Typically her cycles are regular. Unclear etiology. Could be stress induced. CTA P was unremarkable. -transvaginal US ordered #Abdominal pain -Pt reports ongoing abdominal pain with abdominal wall edema s/p 1 month after liposuction, breast augmentation, fat transfer in [place] -No acute abdomen on exam -CTAP with cholelithiasis - likely not causing pain, however, may consider outpatient gen surg f/u to discuss possibility of cholecystectomy FEN/GI: Regular Code status: Full DVT prophylaxis: eliquis Dispo: med tele Admission and Anticipated Discharge Date Admission Date: April 18, 2023 Supervising Physician Co-Signing Physician Notes ATTESTATION I also saw the patient and confirmed roland portions of the history and exam. I agree with the impression and plan in the resident documentation, and as summarized below. Patient is feeling better today overall. She is ambulatory about the room with minimal shortness of breath; no dyspnea at rest. Her chief concern today is what sounds to be menstrual bleeding, but although her period is always fairly predictable and she was not expecting menses for another 2 weeks. She has had some mild spotting when lying down, but several times upon standing, she has noted a fairly significant motley of blood and clots. She has had some very mild menstrual type cramps as well. EXAM 117/68, 87, 16, 36.8, 97% on room air She is ambulatory in the room; lying supine in the bed for examination; nurses at bedside as well during the time of the exam Heart regular rhythm Lungs clear with nonlabored respirations Abdomen is nontender; incisions in the bilateral lower abdominal/inguinal fold are clean dry and intact; no tenderness along this area nor no erythema The incisions under her breast bilaterally are also clean dry and intact; there is a small scabbed area (2 cm) under the left breast, without discharge, erythema, or tenderness. DATA Labs Hemoglobin 9.1 BMP unremarkable Hypercoagulability panel pending IMPRESSION & PLAN Pulmonary embolism Certainly provoking factors, although noted family history of same Hypercoagulation workup pending Apixaban 10 mg twice daily x 7 days, then 5 mg twice daily Anemia Uterine bleeding I suspect this is abnormal menses secondary to physiologic stress and addition of anticoagulant, although will check uterine ultrasound and follow-up CBC in morning Patient is appropriately concerned; consider gynecology consultation should bleeding continue or ultrasound warrant Additional per resident documentation Subjective Patient seen at bedside. Still having shortness of breath with ambulation but improved. Also with bilateral flank pains. Notes vaginal spotting with clots which is odd for her since her menstrual cycle was 2.5 weeks ago. Denies dysuria or urinary frequency. No chest pain, fever, headache. Review of Systems Review of Systems: All systems reviewed & are unremarkable except as noted in HPI & below Physical Exam Physical Exam: Constitutional: in no acute distress, pleasant and normal affect, intact memory. AOx3. Vitals as above. HEENT: No scleral injection or discharge. Moist mucous membranes. Neck: Supple without lymphadenopathy or thyromegaly. Trachea midline. Lungs: Diminished bibasilar breath sounds otherwise CTAB without wheezes/rales/rhonchi. Cardiac: RRR. No murmurs. No lower extremity edema. 2+ distal peripheral pulses. Abdomen: Soft nondistended.No guarding. MSK: No cyanosis or clubbing. +bilateral CVA tenderness Skin: No rashes, warm, dry. Neurologic: no focal deficits Results & Data Results & Data Vital Signs (Past 12 Hours) Vital Signs Temp Pulse Pulse Resp BP Pulse Ox O2 Del Method 04/20/23 08:01 36.7 C 86 16 100/64 95 Room Air 04/20/23 07:53 Room Air 04/20/23 04:23 89 18 107/72 95 Room Air 04/20/23 03:42 Room Air Laboratory Results 04/20/23 04/19/23 04/19/23 Range/Units 05:45 22:22 20:50 WBC 6.47 (4.8-10.8) K/ul RBC 3.45 L (4.20-5.40) M/uL Hgb 9.1 L (12.0-16.0) g/dl Hct 28.0 L (37.0-47.0) % MCV 81.2 (80.0-100.0) fL MCH 26.4 (25.0-34.0) pg MCHC 32.5 (32.0-36.0) g/dL RDW Std Deviation 38.6 (36.4-46.3) fL RDW Coeff of Bud 13.0 (11.5-14.5) % Plt Count 245 (130-400) K/uL MPV 10.3 (9.4-12.4) fL PT 12.4 H (9.0-12.0) Seconds INR 1.1 (0.9-1.1) LA PTT Screen Pending Antithrombin III Activ Pending Heparin Anti-Xa, Unfract < 0.10 L (0.3-0.7) IU/ml Factor V Leiden Mutat Pending Factor V Leiden Interp Pending Sodium 136 (136-145) mmol/L Potassium 4.1 (3.5-5.1) mmol/L Chloride 103 (98-107) mmol/L Carbon Dioxide 26 (21-32) mmol/L Anion Gap 7 (3-11) BUN 9 (6-23) mg/dl Creatinine 0.49 L (0.6-1.2) mg/dl Est Cr Clr Drug Dosing 198.7 ml/min Est GFR ( Amer) > 150.0 ml/min Est GFR (Non-Af Amer) 140.3 ml/min BUN/Creatinine Ratio 18.4 (10-20) Glucose 90 (70-99(Fasting)) mg/dl Calcium 9.1 (8.6-10.3) mg/dl Magnesium 1.8 (1.7-2.4) mg/dl Homocysteine Pending Urine Color Dark Yellow Urine Appearance Clear (Clear) Urine pH 6.0 (4.5-7.5) Ur Specific [place] 1.031 H (1.000-1.030) Urine Protein Trace H (Negative) Urine Glucose (UA) Negative (Negative) Urine Ketones Negative (Negative) Urine Blood 1+ H (Negative) Urine Nitrite Negative (Negative) Urine Bilirubin Negative (Negative) Urine Urobilinogen Negative (Negative) Ur Leukocyte Esterase Negative (Negative) Urine RBC 5-10 H (0-4) /hpf Urine WBC 0-5 (0-5) /hpf Ur Epithelial Cells >30 H (0-5) /lpf Urine Bacteria 1+ H (Negative) Hyaline Casts 0-5 (0-5) /lpf Urine Mucus Present A (None Prsent) Urine Yeast Present A (None Prsent) Beta-2-GPI IgG Ab Pending Beta-2-GPI IgM Ab Pending Anti-Cardiolipin IgG Ab Pending Anti-Cardiolipin IgM Ab Pending Prothrombin Gene Mutate Pending Prothromb Gene Comment Pending 04/19/23 Range/Units 16:25 WBC (4.8-10.8) K/ul RBC (4.20-5.40) M/uL Hgb (12.0-16.0) g/dl Hct (37.0-47.0) % MCV (80.0-100.0) fL MCH (25.0-34.0) pg MCHC (32.0-36.0) g/dL RDW Std Deviation (36.4-46.3) fL RDW Coeff of Bud (11.5-14.5) % Plt Count (130-400) K/uL MPV (9.4-12.4) fL PT (9.0-12.0) Seconds INR (0.9-1.1) LA PTT Screen Antithrombin III Activ Heparin Anti-Xa, Unfract 0.17 L (0.3-0.7) IU/ml Factor V Leiden Mutat Factor V Leiden Interp Sodium (136-145) mmol/L Potassium (3.5-5.1) mmol/L Chloride (98-107) mmol/L Carbon Dioxide (21-32) mmol/L Anion Gap (3-11) BUN (6-23) mg/dl Creatinine (0.6-1.2) mg/dl Est Cr Clr Drug Dosing ml/min Est GFR ( Amer) ml/min Est GFR (Non-Af Amer) ml/min BUN/Creatinine Ratio (10-20) Glucose (70-99(Fasting)) mg/dl Calcium (8.6-10.3) mg/dl Magnesium (1.7-2.4) mg/dl Homocysteine Urine Color Urine Appearance (Clear) Urine pH (4.5-7.5) Ur Specific [place] (1.000-1.030) Urine Protein (Negative) Urine Glucose (UA) (Negative) Urine Ketones (Negative) Urine Blood (Negative) Urine Nitrite (Negative) Urine Bilirubin (Negative) Urine Urobilinogen (Negative) Ur Leukocyte Esterase (Negative) Urine RBC (0-4) /hpf Urine WBC (0-5) /hpf Ur Epithelial Cells (0-5) /lpf Urine Bacteria (Negative) Hyaline Casts (0-5) /lpf Urine Mucus (None Prsent) Urine Yeast (None Prsent) Beta-2-GPI IgG Ab Beta-2-GPI IgM Ab Anti-Cardiolipin IgG Ab Anti-Cardiolipin IgM Ab Prothrombin Gene Mutate Prothromb Gene Comment Resident Activity Tracking Resident Involvement: Resident Care Provided Care Provided: Adult Hospital Medicine
[2023-04-20] MEDS ORDERED: BACITRACIN OINT 0.9 GM PKT EXT SCH (12:00)
[2023-04-20] MEDS: BACITRACIN OINT 14 GM TUBE EXT SCH (13:04)
--- NOTE | 2023-04-20 16:23 | Ultrasound Report ---
PELVIC ULTRASOUND, TRANSABDOMINAL AND TRANSVAGINAL HISTORY: vaginal bleeding COMPARISON: Abdomen and pelvis CT 04/19/2023. FINDINGS: Uterus: Unremarkable. Endometrial stripe: 4 mm in thickness. Right ovary: Normal in size and demonstrates normal color flow. A few small follicles/cysts. Left ovary: Normal in size and demonstrates normal color flow. A few small follicles/cysts. Miscellaneous:No pelvic free fluid. IMPRESSION: No significant abnormality identified within the pelvis. ACT 112: Negative or not required by law. Electronically signed by: Rodolfo Velasco M.D. 04/20/2023 4:21 PM
[2023-04-20] MEDS: DOCUSATE SODIUM 100 MG CAP PO PRN (23:32)
[2023-04-21] MEDS: POLYETHYLENE (MIRALAX) 17 GM PACK PO STA (02:20)
[2023-04-21 07:19] LABS: Basophils # (auto) 0.02 K/uL (0.00-0.20); Basophils % (auto) 0.3 %; Eosinophils % (auto) 1.7 %; Hematocrit (blood only) 29.2 % (37.0-47.0); Hemoglobin 9.3 g/dl (12.0-16.0); Immature Granulocytes # (auto) 0.02 K/uL (0.01-0.20); Immature Granulocytes % (auto) 0.3 %; Lymphocytes # (auto) 1.53 K/uL (1.20-3.40); Lymphocytes % (auto) 25.5 %; Mean Corpuscular Hgb Conc 31.8 g/dL (32.0-36.0); Mean Corpuscular Volume 81.6 fL (80.0-100.0); Mean Platelet Volume 9.9 fL (9.4-12.4); Monocytes # (auto) 0.45 K/uL (0.11-0.59); Monocytes % (auto) 7.5 %; Neutrophils # (auto) 3.87 K/uL (1.40-6.50); Neutrophils % (auto) 64.7 %; Platelet Count 274 K/uL (130-400); RDW Coefficient of Variation 13.1 % (11.5-14.5); RDW Standard Deviation 39.2 fL (36.4-46.3); Red Blood Count 3.58 M/uL (4.20-5.40); White Blood Count 5.99 K/ul (4.8-10.8)
[2023-04-21 07:28] LABS: Appearance Urine Cloudy (Clear); Bilirubin Urine Negative (Negative); Blood Urine 3+ (Negative); Color Urine Red; Glucose Urine UA Negative (Negative); Ketones Urine Negative (Negative); Leukocyte Esterase Urine Negative (Negative); Nitrite Urine Negative (Negative); Protein Urine 1+ (Negative); Specific Gravity Urine 1.025 (1.000-1.030); Urobilinogen Urine Negative (Negative)
[2023-04-21 07:31] LABS: Pregnancy Test, Urine Negative (Negative)
[2023-04-21 07:40] LABS: Epithelial Cell Urine 0-5 /lpf (0-5); Mucus Urine Present (None Prsent); RBC Urine >30 /hpf (0-4)
[2023-04-21 07:41] LABS: Bacteria Urine 1+ (Negative)
[2023-04-21 07:42] LABS: Anion Gap 7 (3-11); Blood Urea Nitrogen 11 mg/dl (6-23); Calcium 9.2 mg/dl (8.6-10.3); Carbon Dioxide 26 mmol/L (21-32); Chloride 103 mmol/L (98-107); Creatinine Clr Calc Pharmacy 198.2 ml/min; Est GFR (African American) > 150.0 ml/min; Est GFR (Non-African American) 139.3 ml/min; Glucose 89 mg/dl (70-99(Fasting)); Magnesium 1.9 mg/dl (1.7-2.4); Potassium 4.2 mmol/L (3.5-5.1); Sodium 136 mmol/L (136-145)
[2023-04-21] MEDS: POLYETHYLENE (MIRALAX) 17 GM PACK PO SCH (08:50)
--- NOTE | 2023-04-21 13:48 | Discharge Summary ---
Date of Service April 21, 2023 Admission HPI Per Admitting Provider Chencho is a 22 year old female with a PMH significant for Borderline Personality disorder, bulimia, and depression who presented to the [facility] ED on 04/18/23 after being told about abnormal CT results. Per the ED staff, the patient was recently in [place] and had multiple cosmetic procedures done including a gastrointestinal procedure for weight loss, facial cosmetic surgery, and breast augmentation. She recently flew back to the [facility] on 04/03 and had been experiencing progressive SOB. She initially presented to the [facility] ED on 04/16 and had an extensive workup, including CTA of the chest for possible PE. Th e initial read of the CTA chest stated there was no PE. She returned again to the ED this am with continued SOB. Chest xray was obtained at that time which was read as "Nonspecific right lower lung airspace opacity. ". A repeat CTA of the chest was not obtained at that time as she had just had one on 04/16 which was reported as negative. She was discharged on Augmentin for possible pneumonia. Due to the history of the patient's complaints, one of our in-house Radiologists reviewed the CTA from 04/16 and noted Bilateral segmental and subsegmental pulmonary emboli. The patient was started on a heparin drip and the ED staff spoke with the patient and her parents regarding the events leading to diagnosis today. At the time of the exam the patient was sitting in bed in no acute distress, she is hemodynamically stable and stable on RA. She confirms that she had multiple cosmetic procedures in [place] recently as she lost a large amount of weight over the past year. Approximately 3 weeks ago she flew from [place] back home to [facility], which was a 3 hour fight. She then had an 18 hour flight from [facility] back to the . She states that during the flight she was wearing her compression socks and had planned to get up multiple times during the flight to walk. Unfortunately she slept longer than expected. When she woke she was experiencing BL leg pain with mild paresthesias. She massaged both legs and walked in the plane after development of symptoms. She states that she started to develop SOB during the flight. Approximately 3 days after arriving back in the she started to develop right lower chest pain with radiation into the right shoulder with increased SOB. She does not take control or smoke. Her pain is currently a 6/10 and she denies any other complaints at this time. Please refer to Dr. Raymond's attestation for any changes to the treatment plan Principal Diagnosis pulmonary embolism Discharge Exam Constitutional: in no acute distress, pleasant and normal affect, intact memory. AOx3. Vitals as above. HEENT: No scleral injection or discharge. Moist mucous membranes. Neck: Supple without lymphadenopathy or thyromegaly. Trachea midline. Lungs: Diminished bibasilar breath sounds otherwise CTAB without wheezes/rales/rhonchi. Cardiac: RRR. No murmurs. No lower extremity edema. 2+ distal peripheral pulses. Abdomen: Soft, nondistended.No guarding. MSK: No cyanosis or clubbing. Skin: No rashes, warm, dry. Neurologic: no focal deficits Discharge Data Allergies Allergy/AdvReac Type Severity Reaction Status Date / Time No Known Allergies Allergy Verified 04/18/23 08:41 Consultations 04/18/23 09:31 ED Decision to Admit Stat Ordered Studies Laboratory Results WBC 5.99 K/ul (4.8-10.8) 04/21/23 06:55 RBC 3.58 M/uL (4.20-5.40) L 04/21/23 06:55 Hgb 9.3 g/dl (12.0-16.0) L 04/21/23 06:55 Hct 29.2 % (37.0-47.0) L 04/21/23 06:55 MCV 81.6 fL (80.0-100.0) 04/21/23 06:55 MCH 26.0 pg (25.0-34.0) 04/21/23 06:55 MCHC 31.8 g/dL (32.0-36.0) L 04/21/23 06:55 RDW Std Deviation 39.2 fL (36.4-46.3) 04/21/23 06:55 RDW Coeff of Bud 13.1 % (11.5-14.5) 04/21/23 06:55 Plt Count 274 K/uL (130-400) 04/21/23 06:55 MPV 9.9 fL (9.4-12.4) 04/21/23 06:55 Immature Gran % (Auto) 0.3 % 04/21/23 06:55 Neut % (Auto) 64.7 % 04/21/23 06:55 Lymph % (Auto) 25.5 % 04/21/23 06:55 Turner % (Auto) 7.5 % 04/21/23 06:55 Eos % (Auto) 1.7 % 04/21/23 06:55 Baso % (Auto) 0.3 % 04/21/23 06:55 Neut # (Auto) 3.87 K/uL (1.40-6.50) 04/21/23 06:55 Lymph # (Auto) 1.53 K/uL (1.20-3.40) 04/21/23 06:55 Turner # (Auto) 0.45 K/uL (0.11-0.59) 04/21/23 06:55 Eos # (Auto) 0.10 K/uL (0.00-0.50) 04/21/23 06:55 Baso # (Auto) 0.02 K/uL (0.00-0.20) 04/21/23 06:55 Immature Gran # (Auto) 0.02 K/uL (0.01-0.20) 04/21/23 06:55 PT 12.4 Seconds (9.0-12.0) H 04/20/23 05:45 INR 1.1 (0.9-1.1) 04/20/23 05:45 Heparin Anti-Xa, Unfract < 0.10 IU/ml (0.3-0.7) L 04/19/23 22:22 Sodium 136 mmol/L (136-145) 04/21/23 06:55 Potassium 4.2 mmol/L (3.5-5.1) 04/21/23 06:55 Chloride 103 mmol/L (98-107) 04/21/23 06:55 Carbon Dioxide 26 mmol/L (21-32) 04/21/23 06:55 Anion Gap 7 (3-11) 04/21/23 06:55 BUN 11 mg/dl (6-23) 04/21/23 06:55 Creatinine 0.50 mg/dl (0.6-1.2) L 04/21/23 06:55 Est Cr Clr Drug Dosing 198.2 ml/min 04/21/23 06:55 Est GFR ( Amer) > 150.0 ml/min 04/21/23 06:55 Est GFR (Non-Af Amer) 139.3 ml/min 04/21/23 06:55 BUN/Creatinine Ratio 22.0 (10-20) H 04/21/23 06:55 Glucose 89 mg/dl (70-99(Fasting)) 04/21/23 06:55 Calcium 9.2 mg/dl (8.6-10.3) 04/21/23 06:55 Magnesium 1.9 mg/dl (1.7-2.4) 04/21/23 06:55 Troponin I High Sens 2.8 pg/ml (0-14) 04/18/23 07:38 Urine Color Red 04/21/23 06:50 Urine Appearance Cloudy (Clear) A 04/21/23 06:50 Urine pH 7.0 (4.5-7.5) 04/21/23 06:50 Ur Specific [place] 1.025 (1.000-1.030) 04/21/23 06:50 Urine Protein 1+ (Negative) H 04/21/23 06:50 Urine Glucose (UA) Negative (Negative) 04/21/23 06:50 Urine Ketones Negative (Negative) 04/21/23 06:50 Urine Blood 3+ (Negative) H 04/21/23 06:50 Urine Nitrite Negative (Negative) 04/21/23 06:50 Urine Bilirubin Negative (Negative) 04/21/23 06:50 Urine Urobilinogen Negative (Negative) 04/21/23 06:50 Ur Leukocyte Esterase Negative (Negative) 04/21/23 06:50 Urine RBC >30 /hpf (0-4) H 04/21/23 06:50 Urine WBC 5-10 /hpf (0-5) H 04/21/23 06:50 Ur Epithelial Cells 0-5 /lpf (0-5) 04/21/23 06:50 Urine Bacteria 1+ (Negative) H 04/21/23 06:50 Hyaline Casts 0-5 /lpf (0-5) 04/19/23 20:50 Urine Mucus Present (None Prsent) A 04/21/23 06:50 Urine Yeast Present (None Prsent) A 04/19/23 20:50 Urine Test Negative (Negative) 04/21/23 06:50 Impressions Chest CTA 04/18/23 07:23 CT angio chest PE protocol CT DOSE: 742.57 mGy.cm HISTORY: 22 years-old Female with PE. Acute shortness of breath TECHNIQUE: Multiple CTA images of the chest were obtained after the intravenous administration of 116 ml Optiray. Coronal and sagittal MIPS were obtained from the axial data set and were submitted for review. All measurements were obtained according to NASCET criteria. A dose lowering technique was utilized adhering to the principles of ALARA. COMPARISON: Chest radiograph of same day, CTA chest 04/16/2023 FINDINGS: CTA: The heart is normal in size. No pericardial effusion. Normal thoracic aorta. There is a considerable amount of bilateral segmental and subsegmental pulmonary emboli, most pronounced in the right lower lobe. Mild straightening of the intraventricular septum. CT CHEST: Borderline enlarged 10 mm right hilar lymph node. Unremarkable thyroid. Small right pleural effusion. No pneumothorax. Minimal subsegmental left basilar atelectasis. Intralobular septal thickening with groundglass and consolidative opacities throughout the basal segments of the right lower lobe, progressed from prior. No acute upper abdominal abnormality. Bilateral intact prepectoral breast implants. Possible 9 mm lesion of the lateral left breast on image 9 series 4. No acute fracture. IMPRESSION: 1. Bilateral segmental and subsegmental pulmonary emboli, most pronounced within the right lower lobe. Additionally, there is mild straightening of the intraventricular septum which may represent associated right heart strain. 2. Progressively worsened right lower lobe groundglass and airspace opacities, likely representing a combination of atelectasis with pulmonary infarcts. Pneumonia considered less likely. 3. Small right pleural effusion. ACT 112: Negative or not required by law. The above report was generated using voice recognition software. It may contain grammatical, syntax or spelling errors. Electronically signed by: Saw Diaz M.D. 04/18/2023 8:50 AM Venous Doppler Study 04/18/23 10:35 BILATERAL LOWER EXTREMITY VENOUS DOPPLER HISTORY: Acute pulmonary emboli New PE's; recent surgery and travel COMPARISON STUDY: CT chest of same day FINDINGS: Slow venous flow is noted bilaterally. No left-sided DVT identified. No thrombus identified within the right lower extremity above the level of the knee. Occlusive likely acute thrombus of the right posterior tibial vein. Additionally, there is a thrombosed superficial vein within the right medial calf measuring up to approximately 2 cm in length. IMPRESSION: 1. Right lower extremity DVT, likely acute with possible right lower leg superficial venous thrombosis. 2. No left lower extremity DVT. ACT 112: Negative or not required by law. Electronically signed by: Saw Diaz M.D. 04/18/2023 12:24 PM Abdomen/Pelvis CT 04/19/23 12:50 CT abd pelvis wo con CLINICAL HISTORY: abdominal pain, recent surgeries 1 month prior TECHNIQUE: Helical axial images of the abdomen and pelvis were obtained. Automated dose lowering techniques and/or adjustment according to patient size were utilized for this exam. This exam was performed without intravenous contrast. CT DOSE: 1327.76 mGy.cm COMPARISON: Comparison is made to CT abdomen pelvis 12/21/2021 FINDINGS: Lower chest: Airspace opacity is noted in the right lower lobe with associated pleural effusion. Liver: Unremarkable. No focal lesions are seen. Gallbladder and biliary tree: Cholelithiasis is seen without evidence of cholecystitis. No intra- or extrahepatic biliary ductal dilation. Pancreas: Unremarkable, no focal lesions. Spleen: Unremarkable. Adrenals: Unremarkable. Kidneys and ureters: Unremarkable. Bladder: Limited evaluation due to underdistention. Reproductive organs: Unremarkable. Bowel: The appendix is normal. Lymph nodes Retroperitoneal: Unremarkable. Pelvic: Unremarkable. Mesenteric: Unremarkable. Peritoneum: Normal. Vessels: Unremarkable. Abdominal wall: Unremarkable. Bones: Unremarkable. IMPRESSION: 1. Right lower lobe airspace opacity and pleural effusion are seen compatible with previously noted infarcts, progressed from prior exam. 2. Cholelithiasis without cholecystitis. 3. Additional findings as above. ACT 112: Negative or not required by law. Electronically signed by: Miguel Cerrato M.D. 04/19/2023 6:24 PM Pelvis Ultrasound 04/20/23 12:47 PELVIC ULTRASOUND, TRANSABDOMINAL AND TRANSVAGINAL HISTORY: vaginal bleeding COMPARISON: Abdomen and pelvis CT 04/19/2023. FINDINGS: Uterus: Unremarkable. Endometrial stripe: 4 mm in thickness. Right ovary: Normal in size and demonstrates normal color flow. A few small follicles/cysts. Left ovary: Normal in size and demonstrates normal color flow. A few small follicles/cysts. Miscellaneous:No pelvic free fluid. IMPRESSION: No significant abnormality identified within the pelvis. ACT 112: Negative or not required by law. Electronically signed by: Rodolfo Velasco M.D. 04/20/2023 4:21 PM Hospital Course (1) Pulmonary embolism: #Acute pulmonary embolism -Likely provoked PE from long flight in post-op setting. Patient also with FMHx of VTE in father and grandfather so can certainly have a genetic component. -Chest CTA: b/l segmental and subsegmental PE greatest in RLL, interventricular septal thickening noting possible R heart strain -TTE unremarkable, no R heart strain noted -cont. eliquis -Minimum 3-6 months of treatment -Pain control with Tylenol, oxycodone PRN; Avoid NSAIDS. -Hypercoagulability studies pending #Acute DVT of R posterior tibial vein -Provoked by above- extended flight, possible genetic component -Confirmed with venous Doppler -Also noted associated thrombosed superficial vein along R medial calf up to 2 cm in length -Management as above #Anemia, acute on chronic -Hgb 9.3 on discharge, stable -likely multifactorial d/t iron deficiency and vaginal bleeding as below -advised to start iron supplementation -monitor vaginal bleeding for now -will need outpatient repeat CBC to make sure Hgb stable. #Vaginal bleeding -per patient having bleeding with clots. Last menstrual period 2.5 weeks ago so this mid cycle bleeding is atypical for her. Typically her cycles are regular. Unclear etiology. Could be stress induced early onset menstruation. -CTAP was unremarkable -transvaginal/pelvic US without significant abnormality -urine test negative -advised to monitor for now. If bleeding persists, would recommend f/u with gynecology. #Abdominal pain -Pt reports ongoing abdominal pain with abdominal wall edema s/p 1 month after liposuction, breast augmentation, fat transfer in [place] -No acute abdomen on exam -CTAP with cholelithiasis - likely not causing pain, however, may consider outpatient gen surg f/u to discuss possibility of cholecystectomy Total Time Total Time Spent Total Time Spent (In Minutes): I spent 15 minutes [id number] with the patient, 5 minutes reviewing lab work and imaging results, 10 minutes in documentation Discharge Plan Discharge Items Patient Disposition: Home - Self-Care Reason For Visit: BL PULMONARY EMBOLI Discharge Diagnosis: pulmonary embolism Condition on Discharge: Fair Activity: Per Instructions section Non-emergency contact: Primary Care Provider Call non-emergency contact if: you have any medication questions, your symptoms worsen and your pain is not controlled Follow-up/Referrals: [facility] [Primary Care Provider] - Diet: Regular Ambulatory Orders: Complete Blood Count with Diff (Routine) Timeframe: 3 Days Location: Determined by Patient Ordered By: Satya Gibbons Attending Provider Instructions: You were admitted to the hospital for a blood clot in your lung which is known as a pulmonary embolism. You also have a blood clot in your leg which is likely the site from which you are lung clot originated. To treat this you have been started on a blood thinner known as Eliquis which should be taken for the next 3 to 6 months at the least. We have labs pending in the hospital which will determine if you have any underlying genetic disposition to forming clots in which case the blood thinner may have to be taken for a longer period of time. The Eliquis has been sent to your pharmacy and should be started as soon as possible. You have also been dealing with some new onset vaginal bleeding while in the hospital. The transvaginal ultrasound and CT abdomen pelvis did not show any abnormalities to explain this bleeding. Although your last menstrual cycle was 2 weeks ago it is possible to have a stress-induced premature menstrual cycle. You are also more prone to bleeding because you are on the blood thinner. You should continue to monitor this in the outpatient setting. The bleeding does not stop after 1 or 2 weeks I would recommend following up with a [facility] for further evaluation. Due to the bleeding above we also want to keep an eye on your blood counts after you leave the hospital. They appear to be stable at the moment however with your ongoing vaginal bleeding and the fact that you are on a blood thinner may cause this number to go down. He will follow-up with your primary care provider outpatient in the next few days and have your blood counts rechecked to make sure they remain stable. Another cause of your low hemoglobin is likely due to iron deficiency which you are already aware of. I will send iron pills to your pharmacy as well to help with this. The iron can cause some constipation so it may be a good idea to take the medication every other day. As for your pain induced by the pulmonary embolism and your recent surgery you can continue to take Tylenol in the outpatient setting. We will also provide you with some oxycodone for breakthrough pain. Since you are on the blood thinner you should avoid all NSAIDs which include ibuprofen (Advil, Motrin), Aleve. Pending Studies at Discharge: No Stand-Alone Forms: My [facility], Smoking Cessation Medications and DC Order Prescriptions: New apixaban 5 mg tablet See Rx Instructions .ROUTE .COMPLEX Qty: 90 0RF Rx Instructions: Take 10mg (2 tabs) BID for the next 5 days. Then can come down to 5mg (1 tab) BID. ferrous sulfate [iron] 325 mg (65 mg iron) tablet 325 mg PO Q OTHER DAY Qty: 30 0RF oxycodone 5 mg tablet 5 mg PO Q8H PRN (Reason: pain) Qty: 10 0RF Continued ondansetron 4 mg tablet,disintegrating 4 mg PO Q6H PRN (Reason: nausea and vomiting) Qty: 12 0RF Rx Instructions: Pt hasn't started medication yet Discontinued amoxicillin-pot clavulanate 875-125 mg tablet 1 tab PO BID 5 Days Qty: 10 0RF Rx Instructions: Pharmacy currently: Pt/family unsure of length of course of therapy but did verify start date as of 04/17/2023, as of 04/18/23 pt has taken 3 doses. doxycycline hyclate 100 mg capsule 100 mg PO BID 5 Days Qty: 10 0RF Rx Instructions: Pharmacy currently: Pt/family unsure of length of course of therapy but did verify start date as of 04/17/2023, as of 04/18/23 pt has taken 3 doses. Discharge Orders: Discharge Order (Routine); Ordered 04/21/23 Ordered By: Satya Mortensen Admission Data Admit Date/Time: 04/18/23 10:22 Attending Provider: Isaak Arango Admit Provider: Wero Raymond Primary Care Provider: [facility] Other Providers: Gino Hughes Other Interventions: Discharge Summary Assessment (RN) Last Done: 04/21/23 14:18 Supervising Physician Co-Signing Physician Notes ATTESTATION I also saw the patient and confirmed roland portions of the history and exam. I agree with the impression and plan in the resident documentation, and as summarized below. Continues to feel better. She does feel well enough to go home. She asked a lot of questions today with regards to anticoagulation (duration of anticoagulation, future travel, etc.); she continues to have some vaginal bleeding, but described more as spotting today. As noted before, CT scan of abdomen and pelvis was unremarkable; pelvic ultrasound was also unremarkable yesterday. Hemoglobin is stable. EXAM 122/80, 75, 16, 97% on room air Talks in full complete sentences without pause Respirations are nonlabored Heart is regular DATA Labs Hemoglobin 9.3 BMP unremarkable Hypercoagulability panel pending IMPRESSION & PLAN Pulmonary embolism Certainly provoking factors, although noted family history of same Hypercoagulation workup pending; she will follow-up with [facility] Apixaban 10 mg twice daily x 7 days total, then 5 mg twice daily Anemia Uterine bleeding I suspect this is abnormal menses secondary to physiologic stress and addition of anticoagulant Will check CBC midweek Consider follow-up with gynecology should bleeding persist Follow-up with [facility] otherwise Recommend oral iron supplement Additional per resident documentation Resident Activity Tracking Resident Involvement: Resident Care Provided Care Provided: Adult Hospital Medicine
[2023-04-26 08:23] LABS: Anti Cardiolipin Ab IgG <2.0 GPL-U/mL; Anti Cardiolipin Ab IgM <2.0 MPL-U/mL; Anti-Thrombin III Activity 89 % normal (80-135); B2 Glycoprotein IgG <2.0 U/mL (<20.0); B2 Glycoprotein IgM <2.0 U/mL (<20.0); PTT LA Screen 58 sec (<=40)
[2023-04-26 10:24] LABS: Lupus Hex Phase (Rflxdonotord) Positive (Negative)
== END 2023-04-21 17:06 | disposition home or self-care (01) | DRG 176 ==
LOC: ED 07:21 → EDINP 10:22 → SUATTDRO 10:22 → 2N 04-19 11:36

== ENCOUNTER 2023-05-01 17:00 | Observation (INO) ==
--- NOTE | 2023-05-01 17:30 | ED Triage Note ---
Date of Service May 01, 2023 Provider in Triage Author: Kya Hogan History of Present Illness This patient was briefly evaluated while in triage. An abbreviated physical exam was performed. This patient is a 22-year-old Female who presents to the ED for evaluation of SOB. History of PE and is on Eliquis. However, having worsening pain on the left side of her chest with SOB. Requesting CT scan to check for worsening PE. Physical Exam GENERAL: Non-toxic and in no acute distress. HEENT: Pupils equal. No obvious scleral icterus. HEART: Regular rate and rhythm. LUNGS: Clear to auscultation. No accessory muscle use. Initial orders for labs and / or imaging were placed and patient was placed in the waiting area until a bed is available. Please see further documentation for the full ED course.
[2023-05-01 18:24] LABS: Basophils # (auto) 0.02 K/uL (0.00-0.20); Basophils % (auto) 0.2 %; Eosinophils # (auto) 0.11 K/uL (0.00-0.50); Eosinophils % (auto) 1.2 %; Hematocrit (blood only) 34.2 % (37.0-47.0); Hemoglobin 10.8 g/dl (12.0-16.0); Immature Granulocytes # (auto) 0.08 K/uL (0.01-0.20); Immature Granulocytes % (auto) 0.9 %; Lymphocytes # (auto) 2.12 K/uL (1.20-3.40); Lymphocytes % (auto) 22.8 %; Mean Corpuscular Hemoglobin 25.2 pg (25.0-34.0); Mean Corpuscular Hgb Conc 31.6 g/dL (32.0-36.0); Mean Corpuscular Volume 79.7 fL (80.0-100.0); Mean Platelet Volume 10.2 fL (9.4-12.4); Monocytes # (auto) 0.49 K/uL (0.11-0.59); Monocytes % (auto) 5.3 %; Neutrophils # (auto) 6.46 K/uL (1.40-6.50); Neutrophils % (auto) 69.6 %; Platelet Count 333 K/uL (130-400); RDW Coefficient of Variation 13.1 % (11.5-14.5); RDW Standard Deviation 37.4 fL (36.4-46.3); Red Blood Count 4.29 M/uL (4.20-5.40); White Blood Count 9.28 K/ul (4.8-10.8)
[2023-05-01 18:38] LABS: INR 1.1 (0.9-1.1); Partial Thromboplastin Time 28 Seconds (21-31); Prothrombin Time 11.9 Seconds (9.0-12.0)
[2023-05-01 18:39] LABS: Pregnancy Test, Serum Negative (Negative)
[2023-05-01 19:04] LABS: Alanine Aminotransferase 16 U/L (7-52); Albumin Globulin Ratio 0.8 (0.9-2); Albumin Level 3.7 gm/dl (3.4-5.0); Alkaline Phosphatase 82 U/L (34-104); Anion Gap 6 (3-11); Aspartate Aminotransferase 16 U/L (13-39); BUN Creatinine Ratio 20.3 (10-20); Bilirubin,Total 0.3 mg/dl (0.2-1.0); Blood Urea Nitrogen 13 mg/dl (6-23); Carbon Dioxide 26 mmol/L (21-32); Chloride 105 mmol/L (98-107); Creatinine Clr Calc Pharmacy 140.3 ml/min; Est GFR (African American) 148.9 ml/min; Est GFR (Non-African American) 128.5 ml/min; Globulin 4.4 gm/dl (2.5-4.0); Glucose 96 mg/dl (70-99(Fasting)); Potassium 4.1 mmol/L (3.5-5.1); Sodium 137 mmol/L (136-145); Total Protein 8.1 gm/dl (6.0-8.3)
[2023-05-01 19:10] LABS: Troponin I High Sensitivity < 2.3 pg/ml (0-14)
--- NOTE | 2023-05-01 19:49 | Emergency Department Note ---
Impression & Plan Pulmonary embolism, SOB (shortness of breath), Pleuritic chest pain, Right leg DVT, Left ovarian cyst, Cholelithiasis ED Provider Note CHIEF COMPLAINT: Shortness of breath, history of pulmonary embolism HISTORY OF PRESENTING ILLNESS: This 22-year-old female patient presents to the emergency department for evaluation of shortness of breath and left-sided chest pain. The patient was diagnosed with a PE and right lower extremity DVT in March 2023. She was placed on Eliquis. Last night she started with worsening left-sided chest pain and shortness of breath and is concerned she might have another blood clot or a worsening blood clot. In March the pain was on the right side. However, she now has pain on the left side of her chest radiating to her left shoulder. Intermittent lower abdominal pain as well. Denies nausea or vomiting. Denies fevers, cough, or URI symptoms. She is taking her Eliquis as prescribed and has not missed any doses. Denies any leg or calf pain/swelling. REVIEW OF SYSTEMS: See HPI for pertinent positives and pertinent negatives. ALLERGIES: NKDA MEDICATIONS: Eliquis, iron supplement PAST MEDICAL HISTORY: PE, DVT PHYSICAL EXAM: VITALS: Vitals are noted on the nurse's note and reviewed by myself. GENERAL: Non toxic, no acute distress, non-diaphoretic. SKIN: Capillary refill <2 sec. EYES: PERRLA. EOMI. Conjunctivae without injection, sclerae without icterus. NOSE: Patent without discharge. MOUTH: Mucous membranes moist. Uvula midline. Airway patent. NECK: Supple without nuchal rigidity. HEART: Regular rate and rhythm without murmurs gallops or rubs. LUNGS: Clear to auscultation bilaterally without wheezes, rales or rhonchi. No retractions or accessory muscle use. ABDOMEN: Positive bowel sounds x 4. Normal tympanic percussion. Soft, diffusely tender to palpation, but worse in the left lower quadrant. No masses or organomegaly. Finley sign negative. No guarding or rebound tenderness. No focal RLQ tenderness. MUSCULOSKELETAL: Bilateral calves are nontender to palpation. Peripheral pulses 2+ and equal. NEURO: Patient was alert and oriented. No focal neurological deficits. DIFFERENTIAL DIAGNOSIS: Differential diagnosis includes angina, PR, pericarditis, myocarditis, aortic dissection, pleurisy, pneumothorax, PE, pneumonia, pneumomediastinum, esophagitis, esophageal spasm, GERD, perforated esophagus, perforated duodenal/gastric ulcer, pancreatitis, cholecystitis, costochondritis, musculoskeletal, bronchitis, URI, or others. ED COURSE AND MEDICAL DECISION MAKING: MONITOR: Continuous quality assurance monitor body: Order was placed for continuous quality assurance monitor body. Patient was placed on the quality assurance monitor body and continuous pulse ox. Patient was noted to be in normal sinus rhythm at an initial rate of 94 bpm per my interpretation. EKG: EKG was interpreted by myself as normal sinus rhythm at 96 bpm with nonspecific T wave abnormality, but no significant change from her previous EKG. MEDICATIONS GIVEN: Tylenol 1000 mg p.o., morphine 4 mg IV, Zofran 4 mg IV. INTERPRETATION OF LABS: I interpreted the labs with full lab results as below in the lab section of this note. White blood cell count normal at 9.28. Hemoglobin 10.8 which is improved from 9.3 on 04/21/2023. Platelet count normal at 333. Coags were normal. CMP without acute abnormalities. High-sensitivity troponin normal. Serum hCG negative. INTERPRETATION OF IMAGING: Imaging studies were interpreted by myself and read by radiology as per the imaging section of this note. CTA of the chest with IV contrast showed acute pulmonary emboli in the right and left lower lobe segmental and some subsegmental branches. Consolidation at the right lung base may represent a pulmonary infarct or pneumonia. After we had the radiologist compare to her previous CTA, he noted that the bilateral pulmonary emboli are similar in appearance when compared to prior exam. The right lower lobe consolidation is more dense however, but decreased in size. CT scan of the abdomen and pelvis with IV contrast showed a left ovarian cyst as well as stable cholelithiasis without cholecystitis. Venous Doppler of the bilateral lower extremities showed a nonocclusive DVT in the right peroneal vein and posterior tibial vein. No left lower extremity DVT. EXTERNAL RECORDS REVIEWED: I reviewed the patient's most recent admission and imaging studies as summarized above and below. CONSULTATIONS: On-call hospitalist MDM SUMMARY: The patient was seen during a time of extreme volume and extreme acuity. Nursing triage protocols were initiated with IV lock, labs, and/or imaging studies conducted by protocol in the triage area. The patient was initially evaluated in a triage room and then re-examined once they were taken back to an exam room. The patient was admitted from 04/18/2023 to 04/21/2023 for bilateral PE as well as right lower extremity DVT. The patient had been in [place] for multiple cosmetic procedures performed including a gastrointestinal procedure for weight loss, facial cosmetic surgery, and breast augmentation. She then flew from [place] on a 3-hour flight to her home in [facility] followed by an 18-hour flight back to the [place] on 04/03/2023. She developed progressively worsening shortness of breath after her flight home and was evaluated in the ER for PE. The patient had a hypercoagulability workup completed and she states that she was just notified that she was positive for lupus anticoagulant. The patient has been on Eliquis since her admission and she states that she has not missed any doses and has been taking it appropriately. The patient is now having worsening left-sided chest pain and shortness of breath where her previous symptoms from her PE were on the right side. EKG and troponin without acute abnormalities. Repeat CTA of the chest initially appeared to be worse than her previous CTA and heparin was ordered since it appeared that she had failed Eliquis. However, it was then found that the radiologist had not compared this CTA to her previous CTA. The order for heparin was then canceled before the patient was given any heparin. I contacted stat rad to have them compare this current CTA to her most recent CTA. After we had the radiologist compare to her previous CTA, he noted that the bilateral pulmonary emboli are similar in appearance when compared to prior exam. The right lower lobe consolidation is more dense however, but decreased in size. Venous Doppler of the bilateral lower extremities showed a nonocclusive DVT in the right peroneal vein and posterior tibial vein without left-sided DVT. This appears similar to improved from her previous venous Doppler. Therefore, heparin is not needed at this time. Initially the patient was not complaining of abdominal pain, but on repeat exam, the patient was complaining of more left lower quadrant abdominal pain and was tender to palpation on exam. Therefore, CT scan of the abdomen and pelvis was obtained. It showed stable cholelithiasis and also showed a left ovarian cyst that did not appear to be present on her previous ultrasound. I suspect the left ovarian cyst is the cause of the patient's abdominal pain. The patient was given Tylenol 1000 mg p.o. followed by morphine 4 mg IV and Zofran 4 mg IV with improvement of her pain. The patient is concerned about her new pain and symptoms and is concerned she is failing Eliquis. I had a meaningful discussion about this patient with Dr. Ashraf who agrees with my assessment and the treatment plan. We feel the patient would benefit from admission for further evaluation, treatment, and monitoring. I spoke with the on-call hospitalist who agreed to admit the patient for further management. Please refer to their dictation for further details. The patient's care was transferred in stable condition. DIAGNOSIS: PE with worsening chest pain and shortness of breath Right lower extremity DVT - stable to improved Left ovarian cyst Stable cholelithiasis Past Med/Surg History Medical History Eating disorder Borderline personality disorder Depression Acute pancreatitis Morbid obesity with BMI of 40.0-44.9, adult Surgical History Status following surgery for weight loss GASTRIC BALLOON Family History Other Eating disorder Social History Smoking Status: Never smoker Second Hand Exposure: No; Do You Dip or Chew Tobacco: No; Hx Alcohol Use: No Hx Substance Use: No Preferred Language: Irish Communication Ability: Effective 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 Beliefs That Will Affect Care: Cultural Cultural Beliefs: no pork/no alcohol Current Living Situation: Alone and Significant Other Current Living Situation Comment: Student/lives with boyfriend current occupational status: student Feels Safe at Home: Yes Assistive Devices: None Allergies Allergies Allergy/AdvReac Type Severity Reaction Status Date / Time No Known Allergies Allergy Verified 05/01/23 20:57 Home Meds Home Medications Medication Instructions Recorded Confirmed apixaban 5 mg tablet 5 mg PO BID 05/01/23 05/01/23 Previous Rx's Medication Instructions Recorded ferrous sulfate 325 mg (65 mg 325 mg PO Q OTHER DAY #30 tabs 04/21/23 iron) tablet (iron) Results & Data (ED) Vital Signs Vital Signs - 24 hr 05/01/23 17:24 05/01/23 21:15 05/01/23 21:15 Temperature 37.1 C Temperature Source Temporal Artery Scan Pulse Rate 99 H Pulse Rate [Finger] 92 H Respiratory Rate 20 18 Respiratory Effort / Characteristics Non-Labored Spontaneous Non-Labored Spontaneous Respiratory Depth Normal Normal Respiratory Pattern Regular Regular Blood Pressure 133/84 Blood Pressure [Right Arm] 108/81 Blood Pressure Mean 100 Blood Pressure Mean [Right Arm] 90 Blood Pressure Position [Right Arm] Lying Pulse Oximetry 99 98 98 Oxygen Delivery Method Room Air Room Air Room Air Sepsis Recent Fever Within 48 Hours No Sepsis New/Unexplained Change in Mental Status No Sepsis Action Taken by Nursing No Action Required 05/01/23 22:11 05/02/23 00:00 Temperature Temperature Source Pulse Rate 77 Pulse Rate [Finger] 80 Respiratory Rate 17 Respiratory Effort / Characteristics Non-Labored Spontaneous Respiratory Depth Normal Respiratory Pattern Regular Blood Pressure Blood Pressure [Right Arm] 119/80 Blood Pressure Mean Blood Pressure Mean [Right Arm] 93 Blood Pressure Position [Right Arm] Pulse Oximetry 100 Oxygen Delivery Method Room Air Sepsis Recent Fever Within 48 Hours Sepsis New/Unexplained Change in Mental Status Sepsis Action Taken by Nursing Laboratory Data 05/01/23 18:08 05/01/23 18:08 Lab Results 05/01/23 Range/Units 18:08 WBC 9.28 (4.8-10.8) K/ul RBC 4.29 (4.20-5.40) M/uL Hgb 10.8 L (12.0-16.0) g/dl Hct 34.2 L (37.0-47.0) % MCV 79.7 L (80.0-100.0) fL MCH 25.2 (25.0-34.0) pg MCHC 31.6 L (32.0-36.0) g/dL RDW Std Deviation 37.4 (36.4-46.3) fL RDW Coeff of Bud 13.1 (11.5-14.5) % Plt Count 333 (130-400) K/uL MPV 10.2 (9.4-12.4) fL Immature Gran % (Auto) 0.9 % Neut % (Auto) 69.6 % Lymph % (Auto) 22.8 % York % (Auto) 5.3 % Eos % (Auto) 1.2 % Baso % (Auto) 0.2 % Neut # (Auto) 6.46 (1.40-6.50) K/uL Lymph # (Auto) 2.12 (1.20-3.40) K/uL York # (Auto) 0.49 (0.11-0.59) K/uL Eos # (Auto) 0.11 (0.00-0.50) K/uL Baso # (Auto) 0.02 (0.00-0.20) K/uL Immature Gran # (Auto) 0.08 (0.01-0.20) K/uL PT 11.9 (9.0-12.0) Seconds INR 1.1 (0.9-1.1) APTT 28 (21-31) Seconds PTT Ratio 1.0 Sodium 137 (136-145) mmol/L Potassium 4.1 (3.5-5.1) mmol/L Chloride 105 (98-107) mmol/L Carbon Dioxide 26 (21-32) mmol/L Anion Gap 6 (3-11) BUN 13 (6-23) mg/dl Creatinine 0.64 (0.6-1.2) mg/dl Est Cr Clr Drug Dosing 140.3 ml/min Est GFR ( Amer) 148.9 ml/min Est GFR (Non-Af Amer) 128.5 ml/min BUN/Creatinine Ratio 20.3 H (10-20) Glucose 96 (70-99(Fasting)) mg/dl Calcium 9.0 (8.6-10.3) mg/dl Total Bilirubin 0.3 (0.2-1.0) mg/dl AST 16 (13-39) U/L ALT 16 (7-52) U/L Alkaline Phosphatase 82 (34-104) U/L Troponin I High Sens < 2.3 (0-14) pg/ml Total Protein 8.1 (6.0-8.3) gm/dl Albumin 3.7 (3.4-5.0) gm/dl Globulin 4.4 H (2.5-4.0) gm/dl Albumin/Globulin Ratio 0.8 L (0.9-2) HCG, Qual Negative (Negative) Administered Medications Discontinued Medications Acetaminophen (Acetaminophen 500 Mg Tab) 1,000 mg PO NOW STA Stop: 05/01/23 20:32 Last Admin: 05/01/23 20:46 Dose: 1,000 mg Documented By: GINNA Apixaban (Apixaban 5 Mg Tablet) 5 mg PO NOW STA Stop: 05/02/23 01:22 Last Admin: 05/02/23 01:35 Dose: 5 mg Documented By: ROSS Heparin Sodium (Porcine) (Heparin Sod (Porcine) 1000 Unit/Ml) 1 units IV NOW ONE Stop: 05/01/23 23:08 Last Admin: 05/02/23 00:02 Dose: Not Given Documented By: ROSS Heparin Sodium/Dextrose (Heparin Iv Adult Wt-Based Standard W/ Initial Bolus Protocol) 1 each IV NOW STA; Protocol Stop: 05/01/23 22:53 Last Admin: 05/02/23 00:02 Dose: Not Given Documented By: ROSS Heparin Sodium/Dextrose (Heparin Sodium/Dextrose) 25,000 units in 500 mls @ 0.02 mls/hr IV .Q24H ALICE; Protocol Stop: 05/31/23 23:14 Last Admin: 05/02/23 00:02 Dose: Not Given Documented By: ROSS Ioversol (Optiray 320 125ml) 117 ml IV ONCE ONE Stop: 05/01/23 21:20 Last Admin: 05/01/23 21:20 Dose: 117 ml Documented By: CHARLIE Ioversol (Optiray 320 500ml) 88 ml IV ONCE ONE Stop: 05/01/23 22:02 Last Admin: 05/01/23 22:01 Dose: 88 ml Documented By: DESTINY Morphine Sulfate (Morphine Sulfate 4 Mg/Ml 1 Ml Carp\Vial) 4 mg IV NOW STA Stop: 05/01/23 21:39 Last Admin: 05/01/23 21:49 Dose: 4 mg Documented By: GINNA Ondansetron HCl (Ondansetron Inj 2 Mg/Ml 2 Ml Vial) 4 mg IV NOW STA Stop: 05/01/23 21:39 Last Admin: 05/01/23 21:49 Dose: 4 mg Documented By: GINNA Imaging Data Radiologist's Impression: Chest CTA 05/01/23 17:29 CR Exam(s): CTA CHEST IV Amt: 117 cc opti 320 EXAM: CT Angiography Chest With Intravenous Contrast CLINICAL HISTORY: Reason for exam: PE. TECHNIQUE: Axial computed tomographic angiography images of the chest with intravenous contrast. Automated exposure control was utilized for the study. A dose lowering technique was utilized adhering to the principles of ALARA. MIP reconstructed images were created and reviewed. COMPARISON: No relevant prior studies available. FINDINGS: Pulmonary arteries: Acute pulmonary emboli in the RIGHT and LEFT lower lobe segmental and some submental branches. Consolidation at the RIGHT lung base may represent a pulmonary infarct or pneumonia. Aorta: No acute findings. No thoracic aortic aneurysm. Lungs: See above. Pleural space: Unremarkable. No significant effusion. No pneumothorax. Heart: Unremarkable. No cardiomegaly. No significant pericardial effusion. No CT evidence of RIGHT heart strain. Bones/joints: No acute fracture. No dislocation. Soft tissues: Bilateral breast implants. Lymph nodes: Unremarkable. No enlarged lymph nodes. IMPRESSION: Acute pulmonary emboli in the RIGHT and LEFT lower lobe segmental and some submental branches. Consolidation at the RIGHT lung base may represent a pulmonary infarct or pneumonia. Communications: Verify Receipt Electronically signed by: Addy Lora MD 05/01/23 21:40 PM Abdomen/Pelvis CT 05/01/23 21:38 Exam(s): CT ABDOMEN + PELVIS With Contrast IV Amt: 88 ml optiray 320 EXAM: CT Abdomen and Pelvis With Intravenous Contrast CLINICAL HISTORY: Reason for exam: Abdominal pain. TECHNIQUE: Axial computed tomography images of the abdomen and pelvis with intravenous contrast. Automated exposure control was utilized for the study. A dose lowering technique was utilized adhering to the principles of ALARA. CONTRAST: Patient received 88 ml optiray 320 of IV contrast COMPARISON: No relevant prior studies available. FINDINGS: ABDOMEN: Liver: Unremarkable. No mass. Gallbladder and bile ducts: Contracted gallbladder with cholelithiasis. No ductal dilation. Pancreas: Unremarkable. No mass. No ductal dilation. Spleen: Unremarkable. No splenomegaly. Adrenals: Unremarkable. No mass. Kidneys and ureters: Unremarkable. No solid mass. No hydronephrosis. Stomach and bowel: Unremarkable. No obstruction. No mucosal thickening. PELVIS: Appendix: No findings to suggest acute appendicitis. Bladder: Unremarkable. No mass. Reproductive: LEFT ovarian cyst measuring 1.7 and 1.4 cm. ABDOMEN and PELVIS: Intraperitoneal space: Unremarkable. No free air. No significant fluid collection. Bones/joints: No acute fracture. No dislocation. Soft tissues: Correlate for history of liposuction/abdominoplasty. Vasculature: Unremarkable. No abdominal aortic aneurysm. Lymph nodes: Unremarkable. No enlarged lymph nodes. IMPRESSION: Cholelithiasis. LEFT ovarian cyst. Refer to the concomitant chest CT scan for additional findings. Electronically signed by: Addy Lora MD 05/01/23 22:32 PM Venous Doppler Study 05/01/23 22:52 Exam(s): US VENOUS BILATERAL LOWER EXTREMITIES EXAM: US Duplex Bilateral Lower Extremities Veins CLINICAL HISTORY: Reason for exam: Eval DVT. TECHNIQUE: Real-time duplex ultrasound scan of the bilateral lower extremity veins integrating B-mode two-dimensional vascular structure, Doppler spectral analysis, color flow Doppler imaging and compression. COMPARISON: No relevant prior studies available. FINDINGS: Right deep veins: Nonocclusive DVT in the RIGHT peroneal vein and posterior tibial vein. Right superficial veins: Unremarkable. No thrombus in the visualized right great saphenous vein. Left deep veins: Unremarkable. No DVT in the left common femoral, femoral, proximal deep femoral or popliteal veins. The veins demonstrate normal color flow, are normally compressible, with normal phasic flow and/or augmentation response. Left superficial veins: Unremarkable. No thrombus in the visualized left great saphenous vein. Soft tissues: No acute findings. No popliteal cyst. IMPRESSION: Nonocclusive DVT in the RIGHT peroneal vein and posterior tibial vein. No LEFT lower extremity DVT. Electronically signed by: Addy Lora MD 05/02/23 00:09 AM Discharge Plan Visit Data Chief Complaint: Shortness of Breath/Dyspnea Stated Complaint: PULMENARY EMBOLISMS, DVT, SOB, SHOULDER PAIN ED Provider: Magi Ashraf ED Midlevel Provider: Kya Hogan Discharge Problem: Pulmonary embolism, SOB (shortness of breath), Pleuritic chest pain, Right leg DVT, Left ovarian cyst, Cholelithiasis Patient Disposition: Admitted As Inpatient Condition: Good Discharge Problem: Pulmonary embolism Qualifiers: Pulmonary embolism type: unspecified Chronicity: unspecified Acute cor pulmonale presence: unspecified Qualified Code(s): I26.99 - Other pulmonary embolism without acute cor pulmonale Right leg DVT Qualifiers: Affected thrombotic vein of extremity: unspecified vein of extremity C hronicity: unspecified Qualified Code(s): I82.401 - Acute embolism and thrombosis of unspecified deep veins of right lower extremity Cholelithiasis Qualifiers: Cholelithiasis location: gallbladder Cholecystitis presence: without cholecystitis Biliary obstruction: without biliary obstruction Qualified Code(s): K80.20 - Calculus of gallbladder without cholecystitis without obstruction
[2023-05-01] MEDS: ACETAMINOPHEN 500 MG TAB PO STA (20:46)
[2023-05-01] MEDS: OPTIRAY 320 125ml IV ONE (21:20)
--- NOTE | 2023-05-01 21:41 | CT Scan Report ---
Exam(s): CTA CHEST IV Amt: 117 cc opti 320 EXAM: CT Angiography Chest With Intravenous Contrast CLINICAL HISTORY: Reason for exam: PE. TECHNIQUE: Axial computed tomographic angiography images of the chest with intravenous contrast. Automated exposure control was utilized for the study. A dose lowering technique was utilized adhering to the principles of ALARA. MIP reconstructed images were created and reviewed. COMPARISON: No relevant prior studies available. FINDINGS: Pulmonary arteries: Acute pulmonary emboli in the RIGHT and LEFT lower lobe segmental and some submental branches. Consolidation at the RIGHT lung base may represent a pulmonary infarct or pneumonia. Aorta: No acute findings. No thoracic aortic aneurysm. Lungs: See above. Pleural space: Unremarkable. No significant effusion. No pneumothorax. Heart: Unremarkable. No cardiomegaly. No significant pericardial effusion. No CT evidence of RIGHT heart strain. Bones/joints: No acute fracture. No dislocation. Soft tissues: Bilateral breast implants. Lymph nodes: Unremarkable. No enlarged lymph nodes. IMPRESSION: Acute pulmonary emboli in the RIGHT and LEFT lower lobe segmental and some submental branches. Consolidation at the RIGHT lung base may represent a pulmonary infarct or pneumonia. Communications: Verify Receipt Electronically signed by: Addy Lora MD 05/01/23 21:40 PM
[2023-05-01] MEDS: ONDANSETRON INJ 2 MG/ML 2 ML VIAL IV STA (21:49)
[2023-05-01] MEDS: MoRPHine SULFATE 4 MG/ML 1 ML CARP\\VIAL IV STA (21:49)
[2023-05-01] MEDS: OPTIRAY 320 500ml IV ONE (22:01)
--- NOTE | 2023-05-01 22:33 | CT Scan Report ---
Exam(s): CT ABDOMEN + PELVIS With Contrast IV Amt: 88 ml optiray 320 EXAM: CT Abdomen and Pelvis With Intravenous Contrast CLINICAL HISTORY: Reason for exam: Abdominal pain. TECHNIQUE: Axial computed tomography images of the abdomen and pelvis with intravenous contrast. Automated exposure control was utilized for the study. A dose lowering technique was utilized adhering to the principles of ALARA. CONTRAST: Patient received 88 ml optiray 320 of IV contrast COMPARISON: No relevant prior studies available. FINDINGS: ABDOMEN: Liver: Unremarkable. No mass. Gallbladder and bile ducts: Contracted gallbladder with cholelithiasis. No ductal dilation. Pancreas: Unremarkable. No mass. No ductal dilation. Spleen: Unremarkable. No splenomegaly. Adrenals: Unremarkable. No mass. Kidneys and ureters: Unremarkable. No solid mass. No hydronephrosis. Stomach and bowel: Unremarkable. No obstruction. No mucosal thickening. PELVIS: Appendix: No findings to suggest acute appendicitis. Bladder: Unremarkable. No mass. Reproductive: LEFT ovarian cyst measuring 1.7 and 1.4 cm. ABDOMEN and PELVIS: Intraperitoneal space: Unremarkable. No free air. No significant fluid collection. Bones/joints: No acute fracture. No dislocation. Soft tissues: Correlate for history of liposuction/abdominoplasty. Vasculature: Unremarkable. No abdominal aortic aneurysm. Lymph nodes: Unremarkable. No enlarged lymph nodes. IMPRESSION: Cholelithiasis. LEFT ovarian cyst. Refer to the concomitant chest CT scan for additional findings. Electronically signed by: Addy Lora MD 05/01/23 22:32 PM
[2023-05-02] MEDS: HEPARIN SODIUM/DEXTROSE 25,000 UNITS/500 ML BAG IV SCH (00:02)
[2023-05-02] MEDS: Heparin IV Adult Wt-Based Standard w/ INITIAL Bolus Protocol IV STA (00:02)
[2023-05-02] MEDS: HEPARIN SOD (PORCINE) 1000 UNIT/ML IV ONE (00:02)
--- NOTE | 2023-05-02 00:10 | Ultrasound Report ---
Exam(s): US VENOUS BILATERAL LOWER EXTREMITIES EXAM: US Duplex Bilateral Lower Extremities Veins CLINICAL HISTORY: Reason for exam: Eval DVT. TECHNIQUE: Real-time duplex ultrasound scan of the bilateral lower extremity veins integrating B-mode two-dimensional vascular structure, Doppler spectral analysis, color flow Doppler imaging and compression. COMPARISON: No relevant prior studies available. FINDINGS: Right deep veins: Nonocclusive DVT in the RIGHT peroneal vein and posterior tibial vein. Right superficial veins: Unremarkable. No thrombus in the visualized right great saphenous vein. Left deep veins: Unremarkable. No DVT in the left common femoral, femoral, proximal deep femoral or popliteal veins. The veins demonstrate normal color flow, are normally compressible, with normal phasic flow and/or augmentation response. Left superficial veins: Unremarkable. No thrombus in the visualized left great saphenous vein. Soft tissues: No acute findings. No popliteal cyst. IMPRESSION: Nonocclusive DVT in the RIGHT peroneal vein and posterior tibial vein. No LEFT lower extremity DVT. Electronically signed by: Addy Lora MD 05/02/23 00:09 AM
--- NOTE | 2023-05-02 01:31 | History & Physical Report ---
Date of Service May 02, 2023 Assessment & Plan (1) Bilateral pulmonary embolism: (2) Right leg DVT: (3) Lupus anticoagulant disorder: (4) Left ovarian cyst: (5) Vaginal bleeding: Plan Bilateral pulmonary embolism/right lower extremity DVT/lupus anticoagulant/strong family history of clots- Patient had been discharged at previous admission from 04/18-04/21/2023 on Eliquis, and presently taking 5 mg p.o. twice daily She had developed left-sided chest pain, and presented to the ED this evening, with concerns by outpatient physicians regarding possible failure of Eliquis and needs to be converted to warfarin after heparin IV CTA chest this evening and repeat venous Dopplers of right lower extremity DVT this evening are very similar to the ones from 04/18/2023. A heparin anti-Xa, unfractionated lab was added to Emergency Department labs, which returned late and revealed a value of 0.39, with normal range 0.3-0.7, suggesting that her dose needs to be increased, or may need conversion to heparin IV and warfarin. Patient reports that she has been taking the Eliquis 5 mg p.o. twice daily as directed, and has not missed any doses Results of imaging are back late enough in the morning and appears stable, that we will hold off on heparin IV, give her dose of apixaban this evening, and ask pulmonology to comment on the PE and DVT studies. Patient does have worsening right lower lobe consolidation, has a pulse ox of 100% on room air, making it less likely to be a pneumonia, and primary differential including pulmonary infarct versus atelectasis Consult pulmonology Dr. Portillo Vaginal bleeding- Patient did have an appointment with [facility] for gynecologic examination on 05/02/2023 She does need to have the cause of bleeding determined, as she likely will need to be on some form of anticoagulation indefinitely Corrections to medical record: About 6 weeks ago, patient had the following surgeries in [place]: Tummy tuck, breast lift, and fat transfer to hips. She reports that she did not have any weight loss surgery performed She also had a rhinoplasty performed about 9 months ago History of Present Illness Chief Complaint: The patient presents to the emergency department with complaint of recurrence of left lower chest and upper abdomen pain, and shortness of breath, as she continues to take Eliquis as directed for recent PE and right lower extremity DVT diagnosed on 04/18/2023 Primary Care Provider: [facility] The patient is a 22-year-old female with a past medical history including bilat eral PEs, right lower extremity DVT, and lupus anticoagulant. About 6 weeks ago she had undergone a procedure in [place] of the tummy tuck, breast lift, and fat transfer to hips. She had then traveled from [place] back to [facility], and then from [facility] to [facility]. About 3 days after arrival, she developed chest discomfort, presented to the emergency department at [facility] on 04/16/2023, and CT scan read at that time reported no PEs, but question the possibility of pneumonia in the right lower lobe. Her CTA chest was reread on 04/18/2023, was read as bilateral PEs, and patient was called in for admission at that time. She was admitted from 04/18-04/21/2023. During that admission she also underwent venous Dopplers of bilateral lower extremities, which revealed right posterior tibial vein DVT, with possible right lower leg superficial venous thrombosis. She was started on and discharged on Eliquis, which she has been taking as directed. She reports a recurrence of left lower chest and upper abdominal area pain, and presented back to the ED this evening. Repeat imaging of CTA chest revealed the bilateral PEs as being not significantly changed compared to 04/18/2023. Repeat venous Dopplers revealed no significant change compared to venous Doppler of 04/18/2023. CTA of chest on 04/18 and this evening question the possibility of pulmonary infarct in the right lower lobe, with the imaging this evening being more condensed than 04/18/2023. CT of abdomen and pelvis this evening reveals a left ovarian cyst, not noted at previous examination Patient also notes vaginal bleeding that began shortly after starting apixaban, which she reports has been slowly improving, and has an appointment with [facility] for a gynecologic exam on 05/02/2023. Allergies Allergy/AdvReac Type Severity Reaction Status Date / Time No Known Allergies Allergy Verified 05/01/23 20:57 Home Medications Medication Instructions Recorded Confirmed Type ferrous sulfate 325 mg (65 mg 325 mg PO Q OTHER DAY #30 tabs 04/21/23 05/01/23 Rx iron) tablet (iron) apixaban 5 mg tablet 5 mg PO BID 02/07/24 02/07/24 History Past Med/Surg History Medical History (Updated 05/02/23 @ 05:42 by Andrzej Limon MD) Bilateral pulmonary embolism Lupus anticoagulant disorder Vaginal bleeding Eating disorder Borderline personality disorder Depression Acute pancreatitis Morbid obesity with BMI of 40.0-44.9, adult Surgical History (Updated 05/02/23 @ 05:42 by Andrzej Limon MD) History of breast lift History of abdominoplasty Family History Other Eating disorder Social History Smoking Status: Never smoker Second Hand Exposure: No; Do You Dip or Chew Tobacco: No; Hx Alcohol Use: No Hx Substance Use: No Preferred Language: Slovak Communication Ability: Effective 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 Beliefs That Will Affect Care: None Current Living Situation: Alone and Significant Other Current Living Situation Comment: Student/lives with boyfriend current occupational status: student Feels Safe at Home: Yes Assistive Devices: None Review of Systems Review of Systems: The patient denies palpitations, lower extremity swelling, sore throat, fevers, chills, sweats, weight change, fatigue, nausea, vomiting, diarrhea , constipation, abdominal pain, pelvic pain, blood in urine or stool, dysuria, urinary frequency or urgency, lightheadedness, dizziness, headache, memory loss, loss of consciousness, rash, imbalance, focal or generalized weakness, numbness or tingling in arms or legs, generalized arthralgias or myalgias, back or neck pain, or night sweats. The review of systems is otherwise negative other than for that already noted above, and at least 10 systems have been reviewed. Physical Exam Physical Exam: The patient is awake, alert and oriented 3, well developed and well nourished, normocephalic and atraumatic, lying in bed and in no acute distress. HEENT--PERRL, EOMI, mucous membranes and oropharynx normal. Neck--supple. No JVD. No bruits. Thyroid normal, trachea midline, no adenopathy. Heart--normal S1 and S2. No murmurs, rubs or gallops. Lungs--clear bilaterally, no respiratory distress, no accessory muscle use. Abdomen--normal bowel sounds and soft. Nontender. Nondistended, no hernias or masses, no organomegaly. Extremities--no cyanosis or clubbing. No edema. Dermatologic--normal skin turgor, normal color, no abnormal lymph nodes, no rash. Neurologic--cranial nerves II through XII grossly intact. Rheumatologic--normal range of motion. Psychiatric--normal affect. Results & Data Results & Data Vital Signs (Past 12 Hours) Vital Signs Temp Pulse Pulse Resp BP BP Pulse Ox 05/02/23 00:00 80 17 119/80 100 05/01/23 22:11 77 05/01/23 21:15 98 05/01/23 21:15 92 H 18 108/81 98 05/01/23 17:24 37.1 C 99 H 20 133/84 99 O2 Del Method 05/02/23 00:00 Room Air 05/01/23 22:11 05/01/23 21:15 Room Air 05/01/23 21:15 Room Air 05/01/23 17:24 Room Air Laboratory Results Laboratory Results WBC 8.25 K/ul (4.8-10.8) 05/02/23 02:35 RBC 3.77 M/uL (4.20-5.40) L 05/02/23 02:35 Hgb 9.3 g/dl (12.0-16.0) L 05/02/23 02:35 Hct 30.3 % (37.0-47.0) L 05/02/23 02:35 MCV 80.4 fL (80.0-100.0) 05/02/23 02:35 MCH 24.7 pg (25.0-34.0) L 05/02/23 02:35 MCHC 30.7 g/dL (32.0-36.0) L 05/02/23 02:35 RDW Std Deviation 38.1 fL (36.4-46.3) 05/02/23 02:35 RDW Coeff of Bud 13.1 % (11.5-14.5) 05/02/23 02:35 Plt Count 274 K/uL (130-400) 05/02/23 02:35 MPV 10.5 fL (9.4-12.4) 05/02/23 02:35 Immature Gran % (Auto) 0.8 % 05/02/23 02:35 Neut % (Auto) 60.8 % 05/02/23 02:35 Lymph % (Auto) 31.3 % 05/02/23 02:35 [place] % (Auto) 5.7 % 05/02/23 02:35 Eos % (Auto) 1.3 % 05/02/23 02:35 Baso % (Auto) 0.1 % 05/02/23 02:35 Neut # (Auto) 5.01 K/uL (1.40-6.50) 05/02/23 02:35 Lymph # (Auto) 2.58 K/uL (1.20-3.40) 05/02/23 02:35 [place] # (Auto) 0.47 K/uL (0.11-0.59) 05/02/23 02:35 Eos # (Auto) 0.11 K/uL (0.00-0.50) 05/02/23 02:35 Baso # (Auto) 0.01 K/uL (0.00-0.20) 05/02/23 02:35 Immature Gran # (Auto) 0.07 K/uL (0.01-0.20) 05/02/23 02:35 PT 11.9 Seconds (9.0-12.0) 05/01/23 18:08 INR 1.1 (0.9-1.1) 05/01/23 18:08 APTT 28 Seconds (21-31) 05/01/23 18:08 PTT Ratio 1.0 05/01/23 18:08 Heparin Anti-Xa, Unfract 0.39 IU/ml (0.3-0.7) 05/02/23 02:35 Sodium 137 mmol/L (136-145) 05/01/23 18:08 Potassium 4.1 mmol/L (3.5-5.1) 05/01/23 18:08 Chloride 105 mmol/L (98-107) 05/01/23 18:08 Carbon Dioxide 26 mmol/L (21-32) 05/01/23 18:08 Anion Gap 6 (3-11) 05/01/23 18:08 BUN 13 mg/dl (6-23) 05/01/23 18:08 Creatinine 0.64 mg/dl (0.6-1.2) 05/01/23 18:08 Est Cr Clr Drug Dosing 140.3 ml/min 05/01/23 18:08 Est GFR ( Amer) 148.9 ml/min 05/01/23 18:08 Est GFR (Non-Af Amer) 128.5 ml/min 05/01/23 18:08 BUN/Creatinine Ratio 20.3 (10-20) H 05/01/23 18:08 Glucose 96 mg/dl (70-99(Fasting)) 05/01/23 18:08 Calcium 9.0 mg/dl (8.6-10.3) 05/01/23 18:08 Total Bilirubin 0.3 mg/dl (0.2-1.0) 05/01/23 18:08 AST 16 U/L (13-39) 05/01/23 18:08 ALT 16 U/L (7-52) 05/01/23 18:08 Alkaline Phosphatase 82 U/L (34-104) 05/01/23 18:08 Troponin I High Sens < 2.3 pg/ml (0-14) 05/01/23 18:08 Total Protein 8.1 gm/dl (6.0-8.3) 05/01/23 18:08 Albumin 3.7 gm/dl (3.4-5.0) 05/01/23 18:08 Globulin 4.4 gm/dl (2.5-4.0) H 05/01/23 18:08 Albumin/Globulin Ratio 0.8 (0.9-2) L 05/01/23 18:08 HCG, Qual Negative (Negative) 05/01/23 18:08 Impressions Chest CTA 05/01/23 17:29 CR Exam(s): CTA CHEST IV Amt: 117 cc opti 320 EXAM: CT Angiography Chest With Intravenous Contrast CLINICAL HISTORY: Reason for exam: PE. TECHNIQUE: Axial computed tomographic angiography images of the chest with intravenous contrast. Automated exposure control was utilized for the study. A dose lowering technique was utilized adhering to the principles of ALARA. MIP reconstructed images were created and reviewed. COMPARISON: No relevant prior studies available. FINDINGS: Pulmonary arteries: Acute pulmonary emboli in the RIGHT and LEFT lower lobe segmental and some submental branches. Consolidation at the RIGHT lung base may represent a pulmonary infarct or pneumonia. Aorta: No acute findings. No thoracic aortic aneurysm. Lungs: See above. Pleural space: Unremarkable. No significant effusion. No pneumothorax. Heart: Unremarkable. No cardiomegaly. No significant pericardial effusion. No CT evidence of RIGHT heart strain. Bones/joints: No acute fracture. No dislocation. Soft tissues: Bilateral breast implants. Lymph nodes: Unremarkable. No enlarged lymph nodes. IMPRESSION: Acute pulmonary emboli in the RIGHT and LEFT lower lobe segmental and some submental branches. Consolidation at the RIGHT lung base may represent a pulmonary infarct or pneumonia. Communications: Verify Receipt Electronically signed by: Addy Lora MD 05/01/23 21:40 PM Abdomen/Pelvis CT 05/01/23 21:38 Exam(s): CT ABDOMEN + PELVIS With Contrast IV Amt: 88 ml optiray 320 EXAM: CT Abdomen and Pelvis With Intravenous Contrast CLINICAL HISTORY: Reason for exam: Abdominal pain. TECHNIQUE: Axial computed tomography images of the abdomen and pelvis with intravenous contrast. Automated exposure control was utilized for the study. A dose lowering technique was utilized adhering to the principles of ALARA. CONTRAST: Patient received 88 ml optiray 320 of IV contrast COMPARISON: No relevant prior studies available. FINDINGS: ABDOMEN: Liver: Unremarkable. No mass. Gallbladder and bile ducts: Contracted gallbladder with cholelithiasis. No ductal dilation. Pancreas: Unremarkable. No mass. No ductal dilation. Spleen: Unremarkable. No splenomegaly. Adrenals: Unremarkable. No mass. Kidneys and ureters: Unremarkable. No solid mass. No hydronephrosis. Stomach and bowel: Unremarkable. No obstruction. No mucosal thickening. PELVIS: Appendix: No findings to suggest acute appendicitis. Bladder: Unremarkable. No mass. Reproductive: LEFT ovarian cyst measuring 1.7 and 1.4 cm. ABDOMEN and PELVIS: Intraperitoneal space: Unremarkable. No free air. No significant fluid collection. Bones/joints: No acute fracture. No dislocation. Soft tissues: Correlate for history of liposuction/abdominoplasty. Vasculature: Unremarkable. No abdominal aortic aneurysm. Lymph nodes: Unremarkable. No enlarged lymph nodes. IMPRESSION: Cholelithiasis. LEFT ovarian cyst. Refer to the concomitant chest CT scan for additional findings. Electronically signed by: Addy Lora MD 05/01/23 22:32 PM Venous Doppler Study 05/01/23 22:52 Exam(s): US VENOUS BILATERAL LOWER EXTREMITIES EXAM: US Duplex Bilateral Lower Extremities Veins CLINICAL HISTORY: Reason for exam: Eval DVT. TECHNIQUE: Real-time duplex ultrasound scan of the bilateral lower extremity veins integrating B-mode two-dimensional vascular structure, Doppler spectral analysis, color flow Doppler imaging and compression. COMPARISON: No relevant prior studies available. FINDINGS: Right deep veins: Nonocclusive DVT in the RIGHT peroneal vein and posterior tibial vein. Right superficial veins: Unremarkable. No thrombus in the visualized right great saphenous vein. Left deep veins: Unremarkable. No DVT in the left common femoral, femoral, proximal deep femoral or popliteal veins. The veins demonstrate normal color flow, are normally compressible, with normal phasic flow and/or augmentation response. Left superficial veins: Unremarkable. No thrombus in the visualized left great saphenous vein. Soft tissues: No acute findings. No popliteal cyst. IMPRESSION: Nonocclusive DVT in the RIGHT peroneal vein and posterior tibial vein. No LEFT lower extremity DVT. Electronically signed by: Addy Lora MD 05/02/23 00:09 AM Code Status & VTE Plan Code Status Full code VTE Prophylaxis Plan VTE Prophylaxis will be ordered: Yes PG Care Time/CCT Total # of Minutes Spent Total Time Spent with Patient: Total time spent is greater than 50% in coordination of care (as documented) at patient's floor/unit and/or counseling patient: Coding Level of Care Code 52531 INT INP/OBS CARE 3/75MIN Diagnoses Bilateral pulmonary embolism I26.99 Right leg DVT I82.401 Affected thrombotic vein of extremity: unspecified vein of extremity Chronicity: unspecified Lupus anticoagulant disorder D68.62 Left ovarian cyst N83.202 Vaginal bleeding N93.9 (2) Right leg DVT Affected thrombotic vein of extremity: unspecified vein of extremity Chronicity: unspecified Qualified Code(s): I82.401 - Acute embolism and thrombosis of unspecified deep veins of right lower extremity
[2023-05-02] MEDS: APIXABAN 5 MG TABLET PO STA (01:35)
[2023-05-02 03:08] LABS: Basophils # (auto) 0.01 K/uL (0.00-0.20); Basophils % (auto) 0.1 %; Eosinophils # (auto) 0.11 K/uL (0.00-0.50); Eosinophils % (auto) 1.3 %; Hematocrit (blood only) 30.3 % (37.0-47.0); Hemoglobin 9.3 g/dl (12.0-16.0); Immature Granulocytes # (auto) 0.07 K/uL (0.01-0.20); Immature Granulocytes % (auto) 0.8 %; Lymphocytes # (auto) 2.58 K/uL (1.20-3.40); Lymphocytes % (auto) 31.3 %; Mean Corpuscular Hemoglobin 24.7 pg (25.0-34.0); Mean Corpuscular Hgb Conc 30.7 g/dL (32.0-36.0); Mean Corpuscular Volume 80.4 fL (80.0-100.0); Mean Platelet Volume 10.5 fL (9.4-12.4); Monocytes # (auto) 0.47 K/uL (0.11-0.59); Monocytes % (auto) 5.7 %; Neutrophils # (auto) 5.01 K/uL (1.40-6.50); Neutrophils % (auto) 60.8 %; Platelet Count 274 K/uL (130-400); RDW Coefficient of Variation 13.1 % (11.5-14.5); RDW Standard Deviation 38.1 fL (36.4-46.3); Red Blood Count 3.77 M/uL (4.20-5.40); White Blood Count 8.25 K/ul (4.8-10.8)
[2023-05-02 03:29] LABS: ANTI-Xa, UFH(UnfractionatedHep 0.39 IU/ml (0.3-0.7)
--- NOTE | 2023-05-02 06:56 | Hospitalist Progress Note ---
Date of Service May 02, 2023 Assessment & Plan (1) Bilateral pulmonary embolism: (2) Lupus anticoagulant disorder: (3) Right leg DVT: (4) Vaginal bleeding: (5) Left ovarian cyst: Plan 1) Bilateral pulmonary embolism: (2) Right leg DVT: (3) Lupus anticoagulant disorder: (4) Left ovarian cyst: (5) Vaginal bleeding: Plan 1) Bilateral pulmonary embolism/right lower extremity DVT/lupus anticoagulant/strong family history of clots Patient had been discharged at previous admission from 04/18-04/21/2023 on Eliquis, and presently taking 5 mg p.o. twice daily She had developed left-sided chest pain, and presented to the ED this evening, with concerns by outpatient physicians regarding possible failure of Eliquis and needs to be converted to warfarin after heparin IV - CTA chest this evening and repeat venous Dopplers of right lower extremity DVT this evening are very similar to the ones from 04/18/2023. - heparin anti-Xa, unfractionated lab was added to ED labs, revealed a value of 0.39 (normal range 0.3-0.7), suggesting that her dose needs to be increased, or may need conversion to heparin IV and warfarin. - Patient reports that she has been taking the Eliquis 5 mg p.o. twice daily as directed, and has not missed any doses - CT-chest appears stable, that we will hold off on heparin IV, give her dose of apixaban this evening, and ask pulmonology to comment on the PE and DVT studies. - Patient does have worsening right lower lobe consolidation, has a pulse ox of 100% on room air, making it less likely to be a pneumonia, and primary differential including pulmonary infarct versus atelectasis - Consulted pulmonology Dr. Portillo - Lupus anticoagulant - Lupus Hexagonal Phase, pos (04/20/23) - [place] PTT screen, 58 (pos) - anti-cardiolipin IgG and IgM Ab < 2.0, - Beta-2-GPI IgG and IgM Ab < 2.0 4) Vaginal bleeding/ left ovarian cyst Patient did have an appointment with [facility] for gynecologic examination on 05/02/2023 She does need to have the cause of bleeding determined, as she likely will need to be on some form of anticoagulation indefinitely - She can also have the l. ovarian cyst be addressed when she follows up with [facility] Admission and Anticipated Discharge Date Admission Date: May 02, 2023 Supervising Physician Co-Signing Physician Notes Attending Physician Supervision Note: I independently interviewed and examined the patient and verified the roland history and physical, reviewed labs and image studies and agree with findings and care plan noted above. Intractable chest pain and shortness of breath in setting of recent extensive PE/DVT (APA)/Pulmonary infarct from PE - - Discussed with pulmonology - reviewed the film and no concern of Eliquis failure. Clot load improved since last imaging. - will continue eliquis - consider discussion with heme/onco regarding appropriateness of eliquis as choice with + lupus anticoagulants. - Need aggressive pain control in setting of pulmonary infarct from PE - IV meds prn and scheduled oxycodone ordered - Will need CT imaging in 3mths for follow up on pulmonary infarct. Suicidal ideation with h/o Bulimia/depression/borderline personality ds - Not on any psych home meds currently. - consult placed for psychiatry evaluation. Subjective The patient is a 22-year-old female with a past medical history including bilateral PEs, right lower extremity DVT, and lupus anticoagulant. About 6 weeks ago she had undergone a procedure in [place] of the tummy tuck, breast lift, and fat transfer to hips. She had then traveled from [place] back to [facility], and then from [facility] to [facility]. About 3 days after arrival, she developed chest discomfort, presented to the emergency department at [facility] on 04/16/2023, and CT scan read at that time reported no PEs, but question the possibility of pneumonia in the right lower lobe. Her CTA chest was reread on 04/18/2023, was read as bilateral PEs, and patient was called in for admission at that time. She was admitted from 04/18-04/21/2023. Patient has been having a lot of pain in her left shoulder area and was the reason why she came in today. This morning she feels like the pain is an 8/10 and seems position-dependent (worse w/ lying down) and worse with inspiration. Patient also felt nauseous, was unable to eat her breakfast this morning and was concerned about taking her meds on an empty stomach; I asked the nurse to give pt IV Zofran when he was free. Patient expressed frustration with the health care she was receiving and did not understand why she had not received antibiotics. Patient called her father and had him speak to me concerning her health care, update him on current findings, and communicate to him what our plan was going forward. Patient communicated that she was feeling suicidal due to recent stressors of being unable to fly back and visit her family in [facility], her health care challenges, and the fact that her health care had forced her to drop her classes and delay taking [employer]. She also expressed an interest in receiving a psychiatric consult. Patient was visibly crying, upset, with some subsequent increase in her vitals (HR in 130s, RR in 40s), which concerned me given her multiple-PE status. With the help of my senior resident, the psych consult was placed. Due to patient's current status with multiple PE's and a DVT in her right leg, I remained with her, attempted to calm her, and listen to the source of her frustration/sadness while noting that her vitals slowly improved. Patient noted extensive, frustrating PMHx of pancreatitis, cholecystitis, among other conditions which may be contributing to sense of feeling overwhelmed. Regarding the patient's vaginal bleeding, she stated her periods normally very regular, "every month around the , bleeding of ~ 4 days, heavy for day-1,2, then eases. The last several days, though, she's experienced intermenstrual bleeding, though it has been improving the last four days. Review of Systems Constitutional: no fever and no chills Respiratory: + dyspnea and + pain on inspiration; no hemoptysis Cardiovascular: + chest pain at rest (chest pain along w ith left shoulder pain) Gastrointestinal: + nausea; no vomiting Psychiatric: + depression and + suicidal ideation Physical Exam Constitutional: WD/WN, vitals as above Respiratory: normal respiratory effort, lungs clear to auscultation Cardiovascular: Rate/Rhythm: regular rate, regular rhythm and + tachycardic Extremities: normal capillary refill; no calf tenderness Psychiatric: Orientation: alert and oriented x 3 Apperance: appropriately dressed and appeared stated age Eye Contact: good eye contact Affect: + tearful affect Mood: + depressed mood Suicidal Thoughts: denies suicidal plan; + reports suicidal thoughts Results & Data Results & Data Vital Signs (Past 12 Hours) Vital Signs Pulse Pulse Resp BP Pulse Ox O2 Del Method 05/02/23 05:24 75 16 95 Room Air 05/02/23 00:00 80 17 119/80 100 Room Air 05/01/23 22:11 77 05/01/23 21:15 98 Room Air 05/01/23 21:15 92 H 18 108/81 98 Room Air Resident Activity Tracking Resident Involvement: Resident Care Provided Care Provided: Adult Hospital Medicine (3) Right leg DVT Affected thrombotic vein of extremity: unspecified vein of extremity Chronicity: unspecified Qualified Code(s): I82.401 - Acute embolism and thrombosis of unspecified deep veins of right lower extremity
[2023-05-02] MEDS: traMADol HCL 50 MG TABLET PO PRN (07:35)
[2023-05-02] MEDS: FERROUS SULFATE 325 MG TAB PO SCH (07:36)
[2023-05-02] MEDS: APIXABAN 5 MG TABLET PO SCH (07:36)
--- NOTE | 2023-05-02 07:55 | Electrocardiogram Report ---
Test Reason : Blood Pressure : / mmHG Vent. Rate : 096 BPM Atrial Rate : 096 BPM P-R Int : 140 ms QRS Dur : 070 ms QT Int : 346 ms P-R-T Axes : 034 055 023 degrees QTc Int : 437 ms Normal sinus rhythm with sinus arrhythmia Diffuse Minor Nonspecific T wave abnormality Abnormal ECG When compared with ECG of 18-APR-2023 07:30, No significant change was found Confirmed by Addy Gill ([id number]) on 05/02/2023 7:54:31 AM Referred By: REFERRED SELF Confirmed By:Addy Gill
[2023-05-02] MEDS ORDERED: ACETAMINOPHEN 325 MG TAB PO PRN (09:02)
[2023-05-02] MEDS: MoRPHine SULFATE 4 MG/ML 1 ML CARP\\VIAL IV STA (09:20)
[2023-05-02] MEDS: ONDANSETRON INJ 2 MG/ML 2 ML VIAL IV PRN (09:21)
[2023-05-02] MEDS: HYDROmorphone INJ 0.5 MG/0.5 ML SYR IV STA (10:54)
[2023-05-02] MEDS: PROCHLORPERAZINE 5 MG/ML 2 ML VIAL ONE (12:07)
[2023-05-02] MEDS: PROCHLORPERAZINE 5 MG in SYRINGE 4 ML IV ONE (12:08)
[2023-05-02] MEDS: MoRPHine SULFATE 4 MG/ML 1 ML CARP\\VIAL IV PRN (20:50)
[2023-05-03 06:32] LABS: Basophils # (auto) 0.03 K/uL (0.00-0.20); Basophils % (auto) 0.4 %; Eosinophils # (auto) 0.13 K/uL (0.00-0.50); Eosinophils % (auto) 1.6 %; Hematocrit (blood only) 29.9 % (37.0-47.0); Hemoglobin 9.1 g/dl (12.0-16.0); Immature Granulocytes # (auto) 0.05 K/uL (0.01-0.20); Immature Granulocytes % (auto) 0.6 %; Lymphocytes # (auto) 1.85 K/uL (1.20-3.40); Lymphocytes % (auto) 22.5 %; Mean Corpuscular Hemoglobin 24.7 pg (25.0-34.0); Mean Corpuscular Hgb Conc 30.4 g/dL (32.0-36.0); Mean Corpuscular Volume 81.3 fL (80.0-100.0); Mean Platelet Volume 10.2 fL (9.4-12.4); Monocytes # (auto) 0.67 K/uL (0.11-0.59); Monocytes % (auto) 8.2 %; Neutrophils # (auto) 5.49 K/uL (1.40-6.50); Neutrophils % (auto) 66.7 %; Platelet Count 271 K/uL (130-400); RDW Coefficient of Variation 13.3 % (11.5-14.5); RDW Standard Deviation 39.6 fL (36.4-46.3); Red Blood Count 3.68 M/uL (4.20-5.40); White Blood Count 8.22 K/ul (4.8-10.8)
[2023-05-03] MEDS ORDERED: oxyCODONE HCL IR 5 MG TAB (IMMEDIATE RELEASE) PO PRN (09:22)
[2023-05-03] MEDS: oxyCODONE HCL IR 5 MG TAB (IMMEDIATE RELEASE) ONE (09:34)
[2023-05-03] MEDS: oxyCODONE HCL IR 5 MG TAB (IMMEDIATE RELEASE) PO SCH (09:52)
--- NOTE | 2023-05-03 11:55 | XRay Report ---
TWO VIEW CHEST CLINICAL HISTORY: Atypical chest pain. FINDINGS: PA and lateral chest radiographs are compared to study dated 04/18/2023. Correlation is made with chest CT dated 05/01/2023 The cardiomediastinal silhouette is unremarkable. Right basilar opaciti es persist. There is trace right pleural effusion. Atelectasis is seen at the left lung base. There i s no pneumothorax. The bony thorax appears intact. IMPRESSION: 1. Right basilar opacities persist and likely represent an evolving pulmonary infarct when correlated with the recent chest CT. Correlate clinically. 2. There is trace right pleural effusion. ACT 112: Negative or not required by law. Electronically signed by: Jose Young M.D. 05/03/2023 11:53 AM
--- NOTE | 2023-05-03 14:35 | Pulmonary Consultation ---
Date of Consultation May 03, 2023 Assessment & Plan (1) Bilateral pulmonary embolism: Given her positive lupus anticoagulant state, I would recommend transitioning anticoagulation from apixaban to warfarin with a Lovenox or heparin bridge. I recommend consulting with hematology regarding further anticoagulation. There is no indication at this time for systemic thrombolysis as she is hemodynamically stable and has no evidence of hypoxemia. She does have an area of pulmonary infarction in the right lower lobe which appears to be evolving. I would recommend a follow-up CT scan in 2 months to ensure that this area is improving. Can utilize NSAIDs for pleuritic chest pain. (2) Pulmonary infarction: (3) Pleuritic chest pain: (4) Lupus anticoagulant disorder: History of Present Illness Reason for Consultation: Pulmonary embolism Attending Physician: Akanksha Zuniga MD History of Present Illness 22-year-old female who presented to the hospital due to acute left-sided chest pain with associated shortness of breath. She noticed her symptoms worsened after she decreased the dose of Eliquis from 10 mg twice daily to 5 mg twice daily. She presented to the ER last month and was identified as having bilateral pulmonary emboli 04/18/2023 on the chest CTA. She presented 05/01/2023 with the symptoms as noted above and was found to have acute pulmonary emboli in the right and left lower lobes. She also had a consolidation of the right lung base which appears to be an evolving pulmonary infarct. She also had lower extremity Dopplers performed 05/01/2023 which revealed nonocclusive DVT in the right peroneal vein and posterior tibial vein. She reportedly tested positive for lupus anticoagulant last month. She was ultimately placed on Eliquis. Allergies Allergy/AdvReac Type Severity Reaction Status Date / Time No Known Allergies Allergy Verified 05/01/23 20:57 Home Medications Medication Instructions Recorded Confirmed Type ferrous sulfate 325 mg (65 mg 325 mg PO Q OTHER DAY #30 tabs 04/21/23 05/01/23 Rx iron) tablet (iron) apixaban 5 mg tablet 5 mg PO BID 05/01/23 05/01/23 History Patient History Medical History (Updated 05/03/23 @ 14:54 by Mani Portillo MD) Pulmonary infarction Bilateral pulmonary embolism Lupus anticoagulant disorder Vaginal bleeding Eating disorder Borderline personality disorder Depression Acute pancreatitis Morbid obesity with BMI of 40.0-44.9, adult Surgical History (Updated 05/02/23 @ 05:42 by Andrzej Limon MD) History of breast lift History of abdominoplasty Family History Other Eating disorder Social History Smoking Status: Never smoker Second Hand Exposure: No; Do You Dip or Chew Tobacco: No; Hx Alcohol Use: No Hx Substance Use: No Preferred Language: Kyrgyz Communication Ability: Effective Transit Police Officer Required: No Beliefs That Will Affect Care: None Current Living Situation: Alone and Significant Other Current Living Situation Comment: Student/lives with boyfriend current occupational status: student Feels Safe at Home: Yes Assistive Devices: None Review of Systems Review of Systems: All systems reviewed & are unremarkable except as noted in HPI & below Physical Exam Physical Exam: Constitutional: Patient appears to be of their stated age. Patient is in no apparent distress. Patient is well-developed. Eyes: Pupils are equal round and reactive to light. Conjunctivae are normal. Anicteric sclera. Ears nose, mouth and throat:Deferred Neck: Trachea is midline. Visual inspection is normal. Respiratory: Clear to auscultation bilaterally. No use of accessory muscles. No significant clubbing noted. Cardiovascular: Regular rate and rhythm. No murmurs. No edema. Gastrointestinal: Normal bowel sounds, soft, nontender and nondistended. No hepatosplenomegaly noted. Musculoskeletal: No cyanosis. Patient is able to move all extremities. Strength is 5 out of 5 in the upper and lower extremities. Skin: No rashes, warm dry and intact. Neurologic: No obvious focal neurological deficits seen. Psychiatric: Alert and oriented x3 with a euthymic affect. Results & Data Results & Data Vital Signs (Past 12 Hours) Vital Signs Pulse Resp BP Pulse Ox O2 Del Method 05/03/23 13:49 81 17 121/74 99 Room Air 05/03/23 09:41 81 16 134/75 97 Room Air 05/03/23 05:00 74 20 119/80 100 Room Air PG Care Time/CCT Total # of Minutes Spent Total Time Spent with Patient: Total time spent is greater than 50% in coordination of care (as documented) at patient's floor/unit and/or counseling patient: Coding Level of Care Code 50403 IN/OBS CONSULT LVL 4,60M Diagnoses Bilateral pulmonary embolism I26.99 Pulmonary infarction I26.99 Pleuritic chest pain R07.81 Lupus anticoagulant disorder D68.62
--- NOTE | 2023-05-03 14:55 | Hospitalist Progress Note ---
Date of Service May 03, 2023 Assessment & Plan (1) Bilateral pulmonary embolism: (2) Lupus anticoagulant disorder: (3) Right leg DVT: (4) Vaginal bleeding: (5) Left ovarian cyst: Plan 1) Bilateral pulmonary embolism: (2) Right leg DVT: (3) Lupus anticoagulant disorder: (4) Left ovarian cyst: (5) Vaginal bleeding: Plan 1) Bilateral pulmonary embolism/right lower extremity DVT/lupus anticoagulant/strong family history of clots Patient had been discharged at previous admission from 04/18-04/21/2023 on Eliquis, and presently taking 5 mg p.o. twice daily She had developed left-sided chest pain, and presented to the ED this evening, with concerns by outpatient physicians regarding possible failure of Eliquis and needs to be converted to warfarin after heparin IV - CTA chest this evening and repeat venous Dopplers of right lower extremity DVT this evening are very similar to the ones from 04/18/2023. - heparin anti-Xa, unfractionated lab was added to ED labs, revealed a value of 0.39 (normal range 0.3-0.7), suggesting that her dose needs to be increased, or may need conversion to heparin IV and warfarin. - Patient reports that she has been taking the Eliquis 5 mg p.o. twice daily as directed, and has not missed any doses - CT-chest appears stable, that we will hold off on heparin IV, give her dose of apixaban this evening, and ask pulmonology to comment on the PE and DVT studies. - Patient does have worsening right lower lobe consolidation, has a pulse ox of 100% on room air, making it less likely to be a pneumonia, and primary differential including pulmonary infarct versus atelectasis - Consulted pulmonology Dr. Portillo - Lupus anticoagulant - Lupus Hexagonal Phase, pos (04/20/23) - [place] PTT screen, 58 (pos) - anti-cardiolipin IgG and IgM Ab < 2.0, - Beta-2-GPI IgG and IgM Ab < 2.0 4) Vaginal bleeding/ left ovarian cyst Patient did have an appointment with [facility] for gynecologic examination on 05/02/2023 Vaginal bleeding has stopped, the cause of bleeding , as she likely will need to be on some form of anticoagulation indefinitely - She can also have the l. ovarian cyst be addressed when she follows up with [facility] Admission and Anticipated Discharge Date Admission Date: May 02, 2023 Subjective The patient is a 22-year-old female with a past medical history including bilateral PEs, right lower extremity DVT, and lupus anticoagulant/antiphospholipid syndrome. About 6 weeks ago she had undergone a procedure in [place] of the tummy tuck, breast lift, and fat transfer to hips. She had then traveled from [place] back to [facility], and then from [facility] to [facility]. About 3 days after arrival, she developed chest discomfort, presented to the emergency department at [facility] on 04/16/2023, and CT scan read at that time reported no PEs, but question the possibility of pneumonia in the right lower lobe. Her CTA chest was reread on 04/18/2023, was read as bilateral PEs, and patient was called in for admission at that time. She was admitted from 04/18-04/21/2023. Patient has been having a lot of pain in her left shoulder area and was the reason why she came in today. This morning she feels like the pain is an 8/10 and seems position-dependent (worse w/ lying down) and worse with inspiration. Patient also felt nauseous, was unable to eat her breakfast this morning and was concerned about taking her meds on an empty stomach; I asked the nurse to give pt IV Zofran when he was free. Patient expressed frustration with the health care she was receiving and did not understand why she had not received antibiotics. Patient called her father and had him speak to me concerning her health care, update him on current findings, and communicate to him what our plan was going forward. Patient communicated that she was feeling suicidal due to recent stressors of being unable to fly back and visit her family in [facility], her health care challenges, and the fact that her health care had forced her to drop her classes and delay taking MCAT. She also expressed an interest in receiving a psychiatric consult. Patient was visibly crying, upset, with some subsequent increase in her vitals (HR in 130s, RR in 40s), which concerned me given her multiple-PE status. With the help of my senior resident, the psych consult was placed. Due to patient's current status with multiple PE's and a DVT in her right leg, I remained with her, attempted to calm her, and listen to the source of her frustration/sadness while noting that her vitals slowly improved. Patient noted extensive, frustrating PMHx of pancreatitis, cholecystitis, among other conditions which may be contributing to sense of feeling overwhelmed. Regarding the patient's vaginal bleeding, she stated her periods normally very regular, "every month around the , bleeding of ~ 4 days, heavy for day-1,2, then eases. The last several days, though, she's experienced intermenstrual bleeding, though it has been improving the last four days. Review of Systems Constitutional: no fever and no chills Respiratory: + dyspnea and + pain on inspiration; no hemoptysis Cardiovascular: + chest pain at rest (chest pain along w ith left shoulder pain) Gastrointestinal: + nausea; no vomiting Psychiatric: + depression and + suicidal ideation Physical Exam Constitutional: WD/WN, vitals as above Respiratory: normal respiratory effort, lungs clear to auscultation Cardiovascular: Rate/Rhythm: regular rate, regular rhythm and + tachycardic Extremities: normal capillary refill; no calf tenderness Psychiatric: Orientation: alert and oriented x 3 Apperance: appropriately dressed and appeared stated age Eye Contact: good eye contact Affect: + tearful affect Mood: + depressed mood Suicidal Thoughts: denies suicidal plan; + reports suicidal thoughts Results & Data Results & Data Vital Signs (Past 12 Hours) Vital Signs Pulse Resp BP Pulse Ox O2 Del Method 05/03/23 13:49 81 17 121/74 99 Room Air 05/03/23 09:41 81 16 134/75 97 Room Air 05/03/23 05:00 74 20 119/80 100 Room Air (3) Right leg DVT Affected thrombotic vein of extremity: unspecified vein of extremity Chronicity: unspecified Qualified Code(s): I82.401 - Acute embolism and thrombosis of unspecified deep veins of right lower extremity
--- NOTE | 2023-05-03 15:01 | Discharge Summary ---
Date of Service May 03, 2023 Admission HPI Per Admitting Provider The patient is a 22-year-old female with a past medical history including bilateral PEs, right lower extremity DVT, and lupus anticoagulant. About 6 weeks ago she had undergone a procedure in [place] of the tummy tuck, breast lift, and fat transfer to hips. She had then traveled from [place] back to [facility], and then from [facility] to [facility]. About 3 days after arrival, she developed chest discomfort, presented to the emergency department at [facility] on 04/16/2023, and CT scan read at that time reported no PEs, but question the possibility of pneumonia in the right lower lobe. Her CTA chest was reread on 04/18/2023, was read as bilateral PEs, and patient was called in for admission at that time. She was admitted from 04/18-04/21/2023. During that admission she also underwent venous Dopplers of bilateral lower extremities, which revealed right posterior tibial vein DVT, with possible right lower leg superficial venous thrombosis. She was started on and discharged on Eliquis, which she has been taking as directed. She reports a recurrence of left lower chest and upper abdominal area pain, and presented back to the ED this evening. Repeat imaging of CTA chest revealed the bilateral PEs as being not significantly changed compared to 04/18/2023. Repeat venous Dopplers revealed no significant change compared to venous Doppler of 04/18/2023. CTA of chest on 04/18 and this evening question the possibility of pulmonary infarct in the right lower lobe, with the imaging this evening being more condensed than 04/18/2023. CT of abdomen and pelvis this evening reveals a left ovarian cyst, not noted at previous examination Patient also notes vaginal bleeding that began shortly after starting apixaban, which she reports has been slowly improving, and has an appointment with [facility] for a gynecologic exam on 05/02/2023. Principal Diagnosis Physical Exam: The patient is awake, alert and oriented 3, well developed and well nourished, normocephalic and atraumatic, lying in bed and in no acute distress. HEENT--PERRL, EOMI, mucous membranes and oropharynx normal. Neck--supple. No JVD. No bruits. Thyroid normal, trachea midline, no adenopathy. Heart--normal S1 and S2. No murmurs, rubs or gallops. Lungs--clear bilaterally, no respiratory distress, no accessory muscle use. Abdomen--normal bowel sounds and soft. Nontender. Nondistended, no hernias or masses, no organomegaly. Extremities--no cyanosis or clubbing. No edema. Dermatologic--normal skin turgor, normal color, no abnormal lymph nodes, no rash. Neurologic--cranial nerves II through XII grossly intact. Rheumatologic--normal range of motion. Psychiatric--normal affect. Discharge Exam Constitutional WD/WN, vitals as above Respiratory normal respiratory effort, lungs clear to auscultation Cardiovascular Rate/Rhythm: regular rate, regular rhythm and + tachycardic Extremities: normal capillary refill; no calf tenderness Psychiatric Orientation: alert and oriented x 3 Apperance: appropriately dressed and appeared stated age Eye Contact: good eye contact Affect: + tearful affect Mood: + depressed mood Suicidal Thoughts: denies suicidal plan; + reports suicidal thoughts Discharge Data Allergies Allergy/AdvReac Type Severity Reaction Status Date / Time No Known Allergies Allergy Verified 05/01/23 20:57 Consultations 05/01/23 22:52 ED Decision to Admit Stat 05/02/23 09:31 Consult Behavioral Health Liaison Routine 05/02/23 11:59 Consult Psychiatry Routine 05/03/23 09:32 Consult Pulmonology Routine 05/03/23 10:11 Consult Hematology Routine Ordered Studies 05/01/23 17:29 CT angio chest PE protocol Stat 05/01/23 21:38 CT abd pelvis IV con only Stat 05/01/23 22:52 US venous doppler [facility] Hospital Course (1) Bilateral pulmonary embolism: (2) Lupus anticoagulant disorder: (3) Right leg DVT: (4) Vaginal bleeding: (5) Left ovarian cyst: Plan 1) Bilateral pulmonary embolism: (2) Right leg DVT: (3) Lupus anticoagulant disorder: (4) Left ovarian cyst: (5) Vaginal bleeding: Plan 1) Bilateral pulmonary embolism/right lower extremity DVT/lupus anticoagulant/strong family history of clots Patient had been discharged at previous admission from 04/18-04/21/2023 on Eliquis, and presently taking 5 mg, PO, BID She had developed left-sided chest pain, and presented to the ED this evening - CTA chest and repeat venous Dopplers of right lower extremity DVT upon admission are very similar to the ones from 04/18/2023. - heparin anti-Xa, unfractionated lab was added to ED labs, revealed a value of 0.39 (normal range 0.3-0.7), suggesting that her dose needs to be increased, or may need conversion to heparin IV and warfarin. - Patient reports that she has been taking the Eliquis 5 mg, PO, BID as directed, and has not missed any doses - CT-chest appeared stable - Consulted pulmonology Dr. Portillo to comment on PE, DVT studies in context of lupus anticoagulation disorder: - Recommended F/U with CT-chest in 2 months to monitor progress of PE's - Heme-oncology discussion recommended starting patient on lovenox, with a 7-day warfarin bridge - Patient does have worsening right lower lobe consolidation on chest CTA, has a pulse ox of 100% on room air, making it less likely to be a pneumonia, and primary differential including pulmonary infarct versus atelectasis - Lupus anticoagulant - Lupus Hexagonal Phase, pos (04/20/23) - [place] PTT screen, 58 (pos) - anti-cardiolipin IgG and IgM Ab < 2.0, - Beta-2-GPI IgG and IgM Ab < 2.0 - Patient's Eliquis is discontinued - Patient will be started on Lovenox, 1 mg/kg, BID with a 7-day bridge to Warfarin, 5 mg, daily 4) Vaginal bleeding/ left ovarian cyst Patient did have an appointment with [facility] for gynecologic examination on 05/02/2023 - two left ovarian cysts noted on CT-AP of 1.4 and 1.7 cm Vaginal bleeding has stopped, the cause of bleeding , as she likely will need to be on some form of anticoagulation indefinitely - She can also have the l. ovarian cysts addressed when she follows up with [facility] Total Time Total Time Spent Total Time Spent (In Minutes): see attending attestation Discharge Plan Discharge Items Patient Disposition: Home - Self-Care Reason For Visit: PE'S, LE DEV, RECURRENT PAIN Discharge Diagnosis: Pulmonary Embolism Condition on Discharge: Good Activity: Resume your previous activity Non-emergency contact: Primary Care Provider Call non-emergency contact if: your symptoms worsen, your pain is concerning for you and you have a fever Follow-up/Referrals: Luisa Jeronimo MD, PhD [Pathologist] - 05/13/23 9:00 am (Anticoagularion Clinic Appointment: Your first appointment will take about 1 hr. Appointments after that will likely take less time (15-30 minutes). Come to ENTRANCE E of the main hospital building, which is the [facility] Entrance. Tell the worm grower desk personnel that you are here for your first visit to the Pharmacy Anticoagulation Clinic. If you are unable to keep your appointment please call Central Scheduling at [phone] to reschedule. ) [facility] [Primary Care Provider] - Diet: Regular Ambulatory Orders: Prothrombin Time INR (Routine) Timeframe: 3 Days Location: Determined by Patient Ordered By: Freya Gibbons Prothrombin Time INR (Routine) Timeframe: 3 Days Location: Determined by Patient Ordered By: Freya Gibbons Attending Provider Instructions: You were admitted to the hospital for left-sided, pleuritic chest pain of increasing intensity with recent history of multiple pulmonary emboli. You were treated with Eliquis, IV morphine, Tramadol, Dilaudid, and Tylenol. Please check a PT/INR in 3 days to check therapeutic level of warfarin. Please recheck an anticoagulation panel in 3 months. Please have a follow-up CT-chest in 2 months to monitor progression of pulmonary emboli. A discharge summary will be sent to your primary care physician to ensure osmani nuity of care. Please bring this discharge summary with you to your next office appointment so that your provider can review it at that time. Follow-up appointments: Make a follow-up appointment with your PCP within the next week. It is very important that you follow up with them shortly after discharge from the hospital. Make a follow-up appointment with an Pro[facility] provider at [facility] within the next week. It is very important that you follow up with them shortly after discharge from the hospital. Keep all your follow-up appointments as already scheduled. If you cannot make an appointment, notify your provider. Medications: Your medication list has been reviewed and reconciled upon discharge to ensure accuracy and continuity of care. An updated list of all your medications is included with your hospital discharge paperwork. Please review this list closely, and make note of any changes. * We sent a new medication called Warfarin to your pharmacy. Take Warfarin 5 mg/one tablet daily regularly. * We sent a new medication called Lovenox to your pharmacy. Take Lovenox 90 mg/one tablet twice a day until your Warfarin has reached a therapeutic level. * We sent a short course of Oxycodone to the pharmacy to help manage your pain. * Please stop Eliquis at this time Take your medications as instructed; do not skip a dose of your medicines. Make sure all of your doctors know every medicine you are taking (including edir-vqw-cmeoknq medicines, vitamins, and supplements). Call your primary care provider before taking any new medicines (including imua-esf-qlxqkdk medicines, vitamins, and supplements), because some of these may interact with your current medications, or may make your symptoms worse. Tell your primary care provider if you cannot afford your medications. CONTACT YOUR PRIMARY CARE PROVIDER if you experience any of the following: increasing chest pain, coughing up blood, shortness of breath, increased heart rate groin pain, lower abdominal pain Difficulty following your treatment plan, or difficulty taking medications CALL 911 OR GO TO THE EMERGENCY DEPARTMENT if you experience any of the following: Sudden, severe abdominal pain or nausea/vomiting Severe chest pain, or chest pain that radiates (moves) to your jaw or arm Sudden, severe shortness of breath or difficulty breathing Thank you for allowing us to participate in your care. Pending Studies at Discharge: No Stand-Alone Forms: My [facility], Smoking Cessation Medications and DC Order Prescriptions: New warfarin 5 mg tablet 5 mg PO DAILY 30 Days Qty: 30 0RF enoxaparin [Lovenox] 100 mg/mL syringe 90 mg subcut Q12H 7 Days Qty: 12.6 0RF oxycodone 5 mg tablet 5 mg PO TID PRN (Reason: pain) Qty: 14 0RF Continued ferrous sulfate [iron] 325 mg (65 mg iron) tablet 325 mg PO Q OTHER DAY Qty: 30 0RF Discontinued apixaban 5 mg tablet 5 mg PO BID Discharge Orders: Discharge Order (Routine); Ordered 05/03/23 Ordered By: Héctor Fagan Admission Data Admit Date/Time: 05/02/23 01:30 Attending Provider: Akanksha Zuniga Admit Provider: Andrzej Limon Primary Care Provider: [facility] Other Providers: Andrzej Limon; Danica Finn; Thania Pro; Juno Feldman; Mekhi Ryan; Patrick Molina Jr; Main Portillo; Karlie Mata Supervising Physician Co-Signing Physician Notes Attending Physician Supervision Note: I independently interviewed and examined the patient and verified the roland history and physical, reviewed labs and image studies and agree with findings and care plan noted above. Intractable chest pain and shortness of breath in setting of recent extensive P E/DVT/Pulmonary infarct from PE - - Discussed with pulmonology - reviewed the film and no concern of Eliquis failure. Clot load improved since last imaging. - Lupus anticoagulant + but beta2 glycoprotein and anticardiolipin negative. Discussed with hematology about switching to lovenox/wafarin - agree - should have recheck on lupus anticoagulant in 3mths. Patient educated and send home on lovenox/warfarin - first dose of lovenox before discharge. - Received aggressive pain control. Home with oxycodone rx. NSAID prn - Will need CT imaging in 2mths for follow up on pulmonary infarct. Suicidal ideation with h/o Bulimia/depression/borderline personality ds - Not on any psych home meds currently. - consulted psychiatry - improved symptoms over hospital stay. No need for inpatient admission. Outpatient services information provided - referral for psych meds management, testing for ADHD and DBT therapy. Was instructed to call back if symptoms got worse.
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
[2023-05-03] MEDS ORDERED: LOVENOX TEACHING KIT SCH (17:00)
[2023-05-03] MEDS ORDERED: ENOXAPARIN 100 MG/1ML SYR SQ SCH (21:00)
== END 2023-05-03 16:45 | disposition home or self-care (01) ==
LOC: ED 17:00 → EDINP 17:00 → SUATTDRO 05-02 01:30 → EDINP 05-03 01:54

== ENCOUNTER 2023-09-06 15:40 | Inpatient (IN) ==
[2023-09-06 16:18] LABS: Basophils # (auto) 0.02 K/uL (0.00-0.20); Basophils % (auto) 0.2 %; Eosinophils # (auto) 0.08 K/uL (0.00-0.50); Eosinophils % (auto) 0.9 %; Hematocrit (blood only) 39.1 % (37.0-47.0); Hemoglobin 12.2 g/dl (12.0-16.0); Immature Granulocytes # (auto) 0.05 K/uL (0.01-0.20); Immature Granulocytes % (auto) 0.6 %; Lymphocytes # (auto) 1.88 K/uL (1.20-3.40); Lymphocytes % (auto) 21.3 %; Mean Corpuscular Hemoglobin 24.4 pg (25.0-34.0); Mean Corpuscular Hgb Conc 31.2 g/dL (32.0-36.0); Mean Platelet Volume 10.7 fL (9.4-12.4); Monocytes # (auto) 0.59 K/uL (0.11-0.59); Monocytes % (auto) 6.7 %; Neutrophils % (auto) 70.3 %; Platelet Count 258 K/uL (130-400); RDW Standard Deviation 45.2 fL (36.4-46.3); Red Blood Count 5.01 M/uL (4.20-5.40); White Blood Count 8.82 K/ul (4.8-10.8)
[2023-09-06 16:36] LABS: Albumin Level 3.8 gm/dl (3.4-5.0); BUN Creatinine Ratio 37.1 (10-20); Bilirubin,Total 0.3 mg/dl (0.2-1.0); Calcium 9.2 mg/dl (8.6-10.3); Creatinine Clr Calc Pharmacy 159.1 ml/min; Est GFR (African American) 149.4 ml/min; Est GFR (Non-African American) 128.9 ml/min; Globulin 3.8 gm/dl (2.5-4.0); Potassium 4.1 mmol/L (3.5-5.1); Total Protein 7.6 gm/dl (6.0-8.3)
[2023-09-06 16:42] LABS: Troponin I High Sensitivity 3.5 pg/ml (0-14)
[2023-09-06 16:43] LABS: Partial Thromboplastin Ratio 0.9; Partial Thromboplastin Time 24 Seconds (21-31); Prothrombin Time 10.8 Seconds (9.0-12.0)
--- NOTE | 2023-09-06 17:06 | XRay Report ---
XR chest 1V not portable HISTORY: 23 years-old Female Chest pain, nonspecific COMPARISON: CTA chest 07/03/2023 TECHNIQUE: AP view of the chest FINDINGS: Cardiomediastinal and hilar silhouettes are within normal limits. No pneumothorax, pleural effusion o r airspace consolidation. The bones of the chest appear grossly intact. IMPRESSION: No acute process. ACT 112: Negative or not required by law. The above report was generated using voice recognition software. It may contain grammatical, syntax o r spelling errors. Electronically signed by: Saw Diaz M.D. 09/06/2023 5:05 PM
[2023-09-06] MEDS: SODIUM CHLORIDE 0.9% 1,000 ML IV ONE (17:08)
--- NOTE | 2023-09-06 17:32 | Electrocardiogram Report ---
Test Reason : Blood Pressure : / mmHG Vent. Rate : 082 BPM Atrial Rate : 082 BPM P-R Int : 150 ms QRS Dur : 072 ms QT Int : 358 ms P-R-T Axes : 060 079 071 degrees QTc Int : 418 ms Normal sinus rhythm Nonspecific ST and T wave abnormality Abnormal ECG When compared with ECG of 01-MAY-2023 18:03, No significant change was found Confirmed by Héctor Ellison ([id number]) on 09/06/2023 5:31:57 PM Referred By: Confirmed By:Renato Ellison
[2023-09-06] MEDS: OPTIRAY 320 125ml IV ONE (17:36)
[2023-09-06 18:30] LABS: Pregnancy Test, Serum Negative (Negative)
--- NOTE | 2023-09-06 18:37 | CT Scan Report ---
CT angio chest PE protocol CLINICAL HISTORY: Hx of PE, SOB, left chest/back pain TECHNIQUE: Multidetector row helical CT of the chest was performed with angiographic protocol. Medel l and sagittal reformations were obtained. Coronal and sagittal MIPS were obtained from the axial celia a set and were submitted for review. Automated dose lowering techniques and/or adjustment according to patient size were utilized for this exam. CT DOSE: 706.6 mGy.cm Comparison: Comparison is made to CT chest 07/03/2023 FINDINGS: Lungs and pleura: Airspace opacities are seen in the bilateral lower lung. No suspicious pulmonary no dules. Heart and pericardium: Heart size is normal. No pericardial effusion. Vessels: There is occlusion of left lower lobe segmental branches as well as subsegmental branches of the right lower lobe. Mediastinum and karla: Unremarkable. Chest wall and lower neck: Bilateral breast implants are seen. Abdomen: Unremarkable. Bones: Unremarkable. IMPRESSION: Findings are compatible with segmental and subsegmental pulmonary emboli in the bilateral lower lobes with resulting pulmonary infarcts. No right heart strain. ACT 112: Negative or not required by law. Electronically signed by: Miguel Cerrato M.D. 09/06/2023 6:35 PM
[2023-09-06 18:52] LABS: Adenovirus PCR Not Detected (NotDetected); Bordetella parapertussis PCR Not Detected (NotDetected); Bordetella pertussis PCR Not Detected (NotDetected); Chlamydia pneumoniae PCR Not Detected (NotDetected); Coronavirus 229E PCR Not Detected (NotDetected); Coronavirus CoV-2 (COVID19)PCR Not Detected (NotDetected); Coronavirus HKU1 PCR Not Detected (NotDetected); Coronavirus NL63 PCR Not Detected (NotDetected); Coronavirus OC43PCR Not Detected (NotDetected); Human Metapneumovirus PCR Not Detected (NotDetected); Influenza A PCR Not Detected (NotDetected); Influenza B PCR Not Detected (NotDetected); Mycoplasma pneumoniae PCR Not Detected (NotDetected); Parainfluenza Virus 1 PCR Not Detected (NotDetected); Parainfluenza Virus 2 PCR Not Detected (NotDetected); Parainfluenza Virus 3 PCR Not Detected (NotDetected); Parainfluenza Virus 4 PCR Not Detected (NotDetected); Respiratory Syncytial VirusPCR Not Detected (NotDetected); Rhinovirus/Enterovirus PCR Not Detected (NotDetected)
--- NOTE | 2023-09-06 19:21 | Emergency Department Note ---
Impression & Plan Bilateral pulmonary embolism, Lupus anticoagulant disorder, Pulmonary infarction, Medical non-compliance ED Provider Note NAME: CLARA CRUMP AGE: 23 SEX: F : 2000 ARRIVES VIA: Walk-In INFORMANT: Patient ED PROVIDER(S): Josep Ying MD CHIEF COMPLAINT: Chest pain, shortness of breath. PLAN: Disposition: Admit MEDICAL DECISION MAKING: The patient is a 23-year-old woman with a past medical history of lupus anticoagulant disorder with history of pulmonary embolism, history of medical noncompliance, borderline personality disorder, bulimia who presents to the emergency department via walk-in for evaluation of worsening chest pain in her lower chest with inspiration and shortness of breath. The patient reports that she has not been taking any medications for her history of blood clots over the past 2 weeks. Prior to that she reports taking a leftover prescription of warfarin which she started taking with a dose of 10 mg per her report of her PCP recommendations and then begin taking 5 mg without ever having an INR check. She reports she understood she was going to be contacted for an appointment for this but never received a call. She reports she ran out of her medications 2 weeks ago but did not make an appointment to have this addressed. Denies any cough, congestion, fevers, chills, nausea or vomiting. Of note, the patient was released from the anticoagulation clinic due to her medical noncompliance. On evaluation patient is no acute distress, afebrile stable vital signs. O2 saturation is 90% on room air. Lungs are clear. EKG without overt acute ischemia. CXR negative for acute cardiopulmonary process per my personal preliminary review/interpretation. WBC and platelets within normal limits. H/H within normal limits. INR is 1.0, subtherapeutic. Chemistry without metabolic acidosis. Electrolytes LFTs unremarkable. High-sensitivity troponin 3.5, within normal limits. hCG negative. Respiratory viral panel/[employer] was negative. CT of the chest was performed and demonstrates segmental and subsegmental pulmonary emboli with bilateral pulmonary infarcts. No CT evidence of heart strain. Of note, comparison of this to her imaging in June suspect left basilar pulmonary infarcts are not new. Findings reviewed with the patient and she does agree with plan for mission for further management. Heparin bolus and drip initiated. Bilateral lower extremity ultrasound ordered. Case was discussed with Rah Wall [facility], and Dr. Limon [facility] hospitalist who will evaluate the patient for admission. Triage Nursing notes reviewed and agree them. Prior/external medical records reviewed Vital Signs: reviewed Differential diagnosis: Cardiac ischemia, aortic dissection, pulmonary embolism, pneumothorax, pneumonia, pericarditis, myocarditis, esophageal rupture, GERD, cholecystitis, pancreatitis, musculoskeletal, as well as other pathologies. ER treatment provided: See below. Diagnostics interpreted by me: ECG: Normal sinus rhythm, 82 bpm, no ectopy, nonspecific ST and T wave abnormality, no overt ST elevation or depression, QTc 418, QRS 70. Cardiac Monitoring: An order for continuous cardiac monitoring was placed and demonstrated Normal sinus rhythm, 82 bpm, no ectopy. Laboratory studies: See below Imaging studies: See below Consultation(s): Rah Wall [facility] [place] [facility], and Dr. Limon [facility] [place] hospitalist HPI: The patient is a 23-year-old woman with a past medical history of lupus anticoagulant disorder with history of pulmonary embolism, history of medical noncompliance, borderline personality disorder, bulimia who presents to the emergency department via walk-in for evaluation of worsening chest pain in her lower chest with inspiration and shortness of breath. The patient reports that she has not been taking any medications for her history of blood clots over the past 2 weeks. Prior to that she reports taking a leftover prescription of warfarin which she started taking with a dose of 10 mg per her report of her PCP recommendations and then begin taking 5 mg without ever having an INR check. She reports she understood she was going to be contacted for an appointment for this but never received a call. She reports she ran out of her medications 2 weeks ago but did not make an appointment to have this addressed. Denies any cough, congestion, fevers, chills, nausea or vomiting. Of note, the patient was released from the anticoagulation clinic due to her medical noncompliance. ROS: See above HPI for pertinent positives & negatives. A total of 10 systems reviewed and were otherwise negative. VITALS:See Below PHYSICAL EXAMINATION: GENERAL: Awake, alert, well-appearing, in no distress HENT: Normocephalic, atraumatic. Oropharynx unremarkable. EYES: Normal conjunctiva. Sclera non-icteric. NECK: Supple. No nuchal rigidity. FROM. No JVD. RESPIRATORY: Clear to auscultation. CARDIAC: Regular rate, normal rhythm. Extremities warm and well perfused. Pulses equal. ABDOMEN: Soft, non-distended. No tenderness to palpation. No rebound or guarding. No masses. MUSCULOSKELETAL: Chest examination reveals no tenderness. The back is symmetrical on inspection without obvious abnormality. There is no CVA tenderness to palpation. No joint edema. LOWER EXTREMITIES: Calves are equal size bilaterally and non-tender. No edema. No discoloration. NEURO: Normal sensorium. No sensory or motor deficits noted. SKIN: No rash or jaundice noted. ED COURSE: Critical Care: I have personally spent greater than 35 minutes of critical care time in the direct management of this patient. This includes bedside care, interpretation of diagnostic studies, and testing, discussion with consultants, patient, and family members, and other required patient management activities. This 35 minutes is in excess of all separately billable procedures. Josep Ying MD Past Med/Surg History Problem List (Updated 09/07/23 @ 01:25 by Josep Ying MD) Medical non-compliance (Acute) Trauma and stressor-related disorder Adjustment disorder with mixed anxiety and depressed mood Pulmonary infarction (Acute) Vaginal bleeding Bilateral pulmonary embolism (Acute) Lupus anticoagulant disorder (Acute) Cholelithiasis (Acute) Left ovarian cyst (Acute) Right leg DVT (Acute) Anemia Pulmonary emboli (Acute) SOB (shortness of breath) (Acute) Depression Borderline personality disorder Bulimia (Acute) Medical History Tachycardia Pulmonary infarction Bilateral pulmonary embolism Lupus anticoagulant disorder Vaginal bleeding Eating disorder Borderline personality disorder Depression Acute pancreatitis Morbid obesity with BMI of 40.0-44.9, adult Surgical History History of breast lift History of abdominoplasty Family History Family/Other Schizophrenia Mother Depression Bipolar disorder Father Depression Eating disorder Gestational diabetes Denies family history of Ovarian cancer Prostate cancer Myocardial infarction Breast cancer Colorectal cancer Social History Smoking Status: Never smoker Second Hand Exposure: No; Do You Dip or Chew Tobacco: No; Hx Alcohol Use: No Hx Substance Use: No Preferred Language: Luxembourgish Communication Ability: Effective Visual Impairment: No Limitations Hearing Ability: Normal Unmanned Equipment Operator Required: No Beliefs That Will Affect Care: None marital status: Single Current Living Situation: Alone current occupational status: student Other Information That Helps Us Care for You: No Feels Safe at Home: Yes Safety Concerns: Feels Safe At This Time Childhood Exposure to Second-Hand Smoke: No Diet: ideal protein and low carbohydrate caffeine: Yes Dental Care, Regularly: Yes Physical Activity Frequency: Daily Seatbelt Use: always Sunscreen Use: Yes Assistive Devices: None Allergies Allergies Allergy/AdvReac Type Severity Reaction Status Date / Time No Known Allergies Allergy Verified 09/06/23 19:51 Home Meds Home Medications Medication Instructions Recorded Confirmed warfarin 5 mg tablet 10 mg PO QPM 09/06/23 09/06/23 Results & Data (ED) Vital Signs Vital Signs - 24 hr 09/06/23 15:48 09/06/23 15:48 Temperature 36.7 C Temperature Source Temporal Artery Scan Pulse Rate 87 Respiratory Rate 18 Respiratory Effort / Characteristics Non-Labored Non-Labored Respiratory Depth Normal Normal Respiratory Pattern Regular Regular Blood Pressure 126/80 Blood Pressure Mean 95 Pulse Oximetry 99 Oxygen Delivery Method Room Air Room Air Sepsis Recent Fever Within 48 Hours No Sepsis New/Unexplained Change in Mental Status N/A Sepsis Action Taken by Nursing No Action Required Laboratory Data Attestation: I reviewed the patient's lab results. 09/06/23 15:56 09/06/23 15:56 Lab Results 09/06/23 09/06/23 Range/Units 15:56 17:45 WBC 8.82 (4.8-10.8) K/ul RBC 5.01 (4.20-5.40) M/uL Hgb 12.2 (12.0-16.0) g/dl Hct 39.1 (37.0-47.0) % MCV 78.0 L (80.0-100.0) fL MCH 24.4 L (25.0-34.0) pg MCHC 31.2 L (32.0-36.0) g/dL RDW Std Deviation 45.2 (36.4-46.3) fL RDW Coeff of Bud 16.0 H (11.5-14.5) % Plt Count 258 (130-400) K/uL MPV 10.7 (9.4-12.4) fL Immature Gran % (Auto) 0.6 % Neut % (Auto) 70.3 % Lymph % (Auto) 21.3 % Roane % (Auto) 6.7 % Eos % (Auto) 0.9 % Baso % (Auto) 0.2 % Neut # (Auto) 6.20 (1.40-6.50) K/uL Lymph # (Auto) 1.88 (1.20-3.40) K/uL Roane # (Auto) 0.59 (0.11-0.59) K/uL Eos # (Auto) 0.08 (0.00-0.50) K/uL Baso # (Auto) 0.02 (0.00-0.20) K/uL Immature Gran # (Auto) 0.05 (0.01-0.20) K/uL PT 10.8 (9.0-12.0) Seconds INR 1.0 (0.9-1.1) APTT 24 (21-31) Seconds PTT Ratio 0.9 Sodium 137 (136-145) mmol/L Potassium 4.1 (3.5-5.1) mmol/L Chloride 107 (98-107) mmol/L Carbon Dioxide 22 (21-32) mmol/L Anion Gap 8 (3-11) BUN 23 (6-23) mg/dl Creatinine 0.62 (0.6-1.2) mg/dl Est Cr Clr Drug Dosing 159.1 ml/min Est GFR ( Amer) 149.4 ml/min Est GFR (Non-Af Amer) 128.9 ml/min BUN/Creatinine Ratio 37.1 H (10-20) Glucose 119 H (70-99(Fasting)) mg/dl Calcium 9.2 (8.6-10.3) mg/dl Total Bilirubin 0.3 (0.2-1.0) mg/dl AST 18 (13-39) U/L ALT 15 (7-52) U/L Alkaline Phosphatase 59 (34-104) U/L Troponin I High Sens 3.5 (0-14) pg/ml Total Protein 7.6 (6.0-8.3) gm/dl Albumin 3.8 (3.4-5.0) gm/dl Globulin 3.8 (2.5-4.0) gm/dl Albumin/Globulin Ratio 1.0 (0.9-2) HCG, Qual Negative (Negative) Adenovirus (PCR) Not Detected (NotDetected) B. pertussis DNA (PCR) Not Detected (NotDetected) B.parapertussis DNA PCR Not Detected (NotDetected) C. pneumoniae DNA (PCR) Not Detected (NotDetected) Coronavirus OC43 (PCR) Not Detected (NotDetected) Coronavirus HKU1 (PCR) Not Detected (NotDetected) Coronavirus 229E (PCR) Not Detected (NotDetected) SARS-CoV-2 (PCR) Not Detected (NotDetected) Coronavirus NL63 (PCR) Not Detected (NotDetected) Human Metapneumovir PCR Not Detected (NotDetected) Influenza Type A (PCR) Not Detected (NotDetected) Influenza Type B (PCR) Not Detected (NotDetected) M. pneumoniae (PCR) Not Detected (NotDetected) Parainfluenza 1 (PCR) Not Detected (NotDetected) Parainfluenza 2 (PCR) Not Detected (NotDetected) Parainfluenza 3 (PCR) Not Detected (NotDetected) Parainfluenza 4 (PCR) Not Detected (NotDetected) RSV (PCR) Not Detected (NotDetected) Entero/Rhino (PCR) Not Detected (NotDetected) Administered Medications Heparin Sodium/Dextrose (Heparin Sodium/Dextrose) 25,000 units in 500 mls @ 25 mls/hr IV .Q20H [facility]; Protocol Stop: 10/06/23 19:44 Last Admin: 09/06/23 19:50 Dose: 1,250 units/hr, 25 mls/hr Documented By: CABRERA Co-signed By: RACIEL Morphine Sulfate (Morphine Sulfate 2 Mg/Ml Carp) 2 mg IV Q4H PRN PRN Reason: Pain(5+) Stop: 09/20/23 20:03 Last Admin: 09/06/23 21:56 Dose: 2 mg Documented By: K Discontinued Medications Heparin Sodium (Porcine) (Heparin Sod (Porcine) 1000 Unit/Ml) 6,000 units IV NOW ONE Stop: 09/06/23 19:46 Last Admin: 09/06/23 19:51 Dose: 6,000 units Documented By: CABRERA Co-signed By: RACIEL Sodium Chloride (Nss) 1,000 mls @ 999 mls/hr IV .Q1H1M ONE Stop: 09/06/23 17:35 Last Infusion: 09/06/23 18:14 Dose: Infused Documented By: Admin: 09/06/23 17:08 Dose: 999 mls/hr Documented By: CABRERA Acetaminophen (Ofirmev) 1,000 mg in 100 mls @ 400 mls/hr IV NOW STA Stop: 09/06/23 19:58 Last Infusion: 09/06/23 20:08 Dose: Infused Documented By: Admin: 09/06/23 19:50 Dose: 400 mls/hr Documented By: CABRERA Ioversol (Optiray 320 125ml) 115 ml IV ONCE ONE Stop: 09/06/23 17:36 Last Admin: 09/06/23 17:36 Dose: 115 ml Documented By: DESTINY Imaging Data Radiologist's Impression: Chest X-Ray 09/06/23 15:52 XR chest 1V not portable HISTORY: 23 years-old Female Chest pain, nonspecific COMPARISON: CTA chest 07/03/2023 TECHNIQUE: AP view of the chest FINDINGS: Cardiomediastinal and hilar silhouettes are within normal limits. No pneumothorax, pleural effusion or airspace consolidation. The bones of the chest appear grossly intact. IMPRESSION: No acute process. ACT 112: Negative or not required by law. The above report was generated using voice recognition software. It may contain grammatical, syntax or spelling errors. Electronically signed by: Saw Diaz M.D. 09/06/2023 5:05 PM Chest CTA 09/06/23 16:01 CT angio chest PE protocol CLINICAL HISTORY: Hx of PE, SOB, left chest/back pain TECHNIQUE: Multidetector row helical CT of the chest was performed with angiographic protocol. Coronal and sagittal reformations were obtained. Coronal and sagittal MIPS were obtained from the axial data set and were submitted for review. Automated dose lowering techniques and/or adjustment according to patient size were utilized for this exam. CT DOSE: 706.6 mGy.cm Comparison: Comparison is made to CT chest 07/03/2023 FINDINGS: Lungs and pleura: Airspace opacities are seen in the bilateral lower lung. No suspicious pulmonary nodules. Heart and pericardium: Heart size is normal. No pericardial effusion. Vessels: There is occlusion of left lower lobe segmental branches as well as subsegmental branches of the right lower lobe. Mediastinum and karla: Unremarkable. Chest wall and lower neck: Bilateral breast implants are seen. Abdomen: Unremarkable. Bones: Unremarkable. IMPRESSION: Findings are compatible with segmental and subsegmental pulmonary emboli in the bilateral lower lobes with resulting pulmonary infarcts. No right heart strain. ACT 112: Negative or not required by law. Electronically signed by: Miguel Cerrato M.D. 09/06/2023 6:35 PM Venous Doppler Study 09/06/23 19:25 US venous doppler LE BI CLINICAL HISTORY: PEs, r/o DVT TECHNIQUE: Right lower extremity real-time compression venous ultrasound with Color Doppler imaging. Utilizing real-time ultrasonic imaging multiple real time high-resolution ultrasonic images with compression and noncompression maneuvers of the deep venous system in addition to color doppler imaging were performed from the common femoral vein through the proximal calf veins. COMPARISON: Comparison is made to Doppler ultrasound of the lower extremity 05/01/2023 FINDINGS/IMPRESSION: Currently there is normal compressibility of the deep venous system from the common femoral vein through the proximal calf veins. Incidental note is made of a hypoechoic lesion measuring 1.3 x 2.4 x 0.6 cm in the right medial calf without internal flow, nonspecific but may represent lymph node or other benign finding. ACT 112: Negative or not required by law. Electronically signed by: Miguel Cerrato M.D. 09/06/2023 9:04 PM Discharge Plan Visit Data Chief Complaint: Shortness of Breath/Dyspnea Stated Complaint: CANT BREATHE OUT OF L SIDE, HEARS RATTLING SOUNDS ED Provider: Josep Ying Discharge Problem: Bilateral pulmonary embolism, Lupus anticoagulant disorder, Pulmonary infarction, Medical non-compliance Patient Disposition: Admitted As Inpatient Discharge Instructions Interventions: ED Discharge Assessment Last Done: 09/06/23 22:35
[2023-09-06] MEDS ORDERED: Heparin IV Adult Wt-Based Standard w/ INITIAL Bolus Protocol IV STA (19:27)
[2023-09-06] MEDS ORDERED: HEPARIN SOD (PORCINE) 1000 UNIT/ML IV ONE (19:43)
[2023-09-06] MEDS: ACETAMINOPHEN 1,000 MG/100 ML VIAL IV STA (19:50)
[2023-09-06] MEDS: HEPARIN SODIUM/DEXTROSE 25,000 UNITS/500 ML BAG IV SCH (19:50)
[2023-09-06] MEDS: HEPARIN SOD (PORCINE) 1000 UNIT/ML IV ONE (19:51)
[2023-09-06] MEDS ORDERED: KETOROLAC TROMETHAMINE 15 MG/ML VIAL IV PRN (20:04)
--- NOTE | 2023-09-06 20:11 | History & Physical Report ---
Date of Service September 06, 2023 Assessment & Plan (1) Bilateral pulmonary embolism: Plan: Admit to [facility] telemetry on pulse oximetry Currently stable but with significant pain related to her pulmonary emboli with infarction Complex history over the past year after patient was initially diagnosed with bilateral pulmonary emboli in March, failed initial Eliquis therapy due to being positive for lupus anticoagulant disorder, and failed warfarin therapy due to inability to consistently presenting for INR checks. Patient was subsequently discharged from the anticoagulation clinic in June due to multiple missed appointments and family to reschedule It appears that her pulmonary emboli today are consistent with her initial pulmonary emboli Will continue with heparin drip at this time Unfortunately patient has limited options for systemic anticoagulation moving forward, SQ Lovenox may be the best choice as she will not need weekly INR checks and has previously failed Eliquis therapy Follow bilateral venous Dopplers and echocardiogram ordered on admission Regular diet Heparin drip for DVT prophylaxis AM CBC, CMP, mag, PT/INR (2) Lupus anticoagulant disorder: Plan: See bilateral pulmonary embolism plan (3) Borderline personality disorder: Plan: Patient is not currently on medical treatment or receiving therapy (4) Anemia: Plan: MCV of 78 today, slightly down from 79 as of April of this year Hemoglobin is stable She has a known history of iron deficiency anemia Consider Venofer infusion prior to discharge along with ferrous sulfate to prevent further decline Plan Patient was discussed with Dr. Limon at the time of the admission History of Present Illness Chief Complaint: Ongoing pending/shortness of breath from known pulmonary emboli Primary Care Provider: Oumou Ramirez MD Patient is a 23-year-old female with a past medical history significant for lupus anticoagulant disorder, pulmonary emboli, right lower extremity DVT, borderline personality disorder, bulimia, who presented to the [facility] emergency department on 09/06/2023 due to ongoing shortness of breath and chest pain chest pain consistent with her previously diagnosed pulmonary emboli. Patient was initially diagnosed with pulmonary emboli in March of this past year after she returned from her home in [facility] where she had multiple cosmetic procedures performed. The patient was initially started on Eliquis but subsequently returned to the [facility] ED in early April and was found to have failed Eliquis therapy. She was subsequently started on warfarin with Lovenox bridge. Per anticoagulation clinic documentation, the patient had missed multiple appointments to check her INR and was not rescheduling. Per anticoagulation clinic policy she was discharged due to recurrent missed appointments. Per the anticoagulation clinic note on 07/04/2023, the patient emailed the clinic the following day after being discharged and reported that she had missed multiple appointments and failed to reschedule as her mother had passed and she had been bed bedbound due to grief. On arrival to the ED today she was noted to be stable. Labs were significant for an MCV of 78, MCHC of 31, negative hCG, and full respiratory BioFire negative. Chest x-ray was read as negative for acute findings. CTA of the chest PE protocol was read as findings being compatible with segmental and subsegmental pulmonary emboli in the bilateral lower lobes with resultant pulmonary infarcts. They reported no signs of right heart strain. Prior to admission the patient was initiated on a heparin drip at the request of hospital medicine team. Patient was sitting in bed no acute distress at the time of exam. She confirms that she missed multiple appointments with anticoagulation clinic after the in her family. She states that she then started following up with her PCP who had continued her on warfarin. She was struggling to get caught up on the classwork that she had been missing after the in her family, and states that she failed to follow-up with her PCP after she ran out of warfarin. Over the past 1 to 2 weeks she has been experiencing increased back pain and shortness of breath. She initially attributed this to weight lifting however symptoms continue to progress which is why she presented to the ED today. The patient denies recent fever, chills, new paresthesias/unilateral weakness, changes in vision, hearing, taste, smell, cough, hemoptysis, abdominal pain, nausea, vomiting, diarrhea, dysuria, hematuria, melena, bloody BM's, and recent trauma. When asked, the patient also denies recent suicidal or homicidal ideations. Please refer to Dr. Limon's attestation for any changes to the treatment plan Allergies Allergy/AdvReac Type Severity Reaction Status Date / Time No Known Allergies Allergy Verified 09/06/23 19:51 Home Medications Medication Instructions Recorded Confirmed Type enoxaparin 100 mg/mL subcutaneous 90 mg (0.9 mL) subcut Q12H #3.6 mL 09/07/23 Rx syringe (Lovenox) warfarin 2.5 mg tablet 2.5 mg PO DAILY #30 tabs 09/07/23 Rx warfarin 5 mg tablet 5 mg PO DAILY #30 tabs 09/07/23 Rx Past Med/Surg History Problem List (Updated 09/07/23 @ 11:10 by Tamara Florentino PA-C) Medical non-compliance (Acute) Trauma and stressor-related disorder Adjustment disorder with mixed anxiety and depressed mood Pulmonary infarction (Acute) Vaginal bleeding Bilateral pulmonary embolism (Acute) Lupus anticoagulant disorder (Acute) Cholelithiasis (Acute) Left ovarian cyst (Acute) Right leg DVT (Acute) Anemia Pulmonary emboli (Acute) SOB (shortness of breath) (Acute) Depression Borderline personality disorder Bulimia (Acute) Medical History Tachycardia Pulmonary infarction Bilateral pulmonary embolism Lupus anticoagulant disorder Vaginal bleeding Eating disorder Borderline personality disorder Depression Acute pancreatitis Morbid obesity with BMI of 40.0-44.9, adult Surgical History History of breast lift History of abdominoplasty Family History Family/Other Schizophrenia Mother Depression Bipolar disorder Father Depression Eating disorder Gestational diabetes Denies family history of Ovarian cancer Prostate cancer Myocardial infarction Breast cancer Colorectal cancer Social History Smoking Status: Never smoker Second Hand Exposure: No; Do You Dip or Chew Tobacco: No; Hx Alcohol Use: No Hx Substance Use: No Preferred Language: Kiswahili Communication Ability: Effective Visual Impairment: No Limitations Hearing Ability: Normal [employer] Required: No Beliefs That Will Affect Care: None marital status: Single Current Living Situation: Alone current occupational status: student Feels Safe at Home: Yes Childhood Exposure to Second-Hand Smoke: No Diet: ideal protein and low carbohydrate caffeine: Yes Dental Care, Regularly: Yes Physical Activity Frequency: Daily Seatbelt Use: always Sunscreen Use: Yes Assistive Devices: None Physical Exam Physical Exam: Physical Exam: General: In no acute distress, stated age, well-nourished, good hygiene HEENT: Normocephalic, atraumatic, no scleral icterus, pupils around round, symmetrical, and reactive to light, moist mucus membranes, trachea midline, no thyromegaly Chest/Pulm: No respiratory distress, symmetrical chest expansion, clear breath sounds throughout Cardiac: RRR, no murmurs noted Abdomen: Negative for ascites and bruising, normoactive bowel sounds, soft, non-tender to palpation throughout Musculoskeletal: Symmetrical and without signs of acute trauma, upper and lower extremities with full ROM, no atrophy, spasticity, or flaccidity Extremities: Radial, dorsalis pedis, and posterior tibial pulses are intact and symmetrical, no edema noted in the BL LE's Skin: Warm, dry, no rashes , lesions, or scars noted Neuro: Alert and oriented to person, place, month, year, and president, no focal defects, no tremors noted Psych: No acute distress, calm and cooperative during the exam Results & Data Results & Data Vital Signs (Past 12 Hours) Vital Signs Temp Pulse Resp BP Pulse Ox O2 Del Method 09/06/23 20:06 Room Air 09/06/23 15:48 36.7 C 87 18 126/80 99 Room Air 09/06/23 15:48 Room Air Laboratory Results Abnormal lab results 09/06/23 Range/Units 15:56 MCV 78.0 L (80.0-100.0) fL MCH 24.4 L (25.0-34.0) pg MCHC 31.2 L (32.0-36.0) g/dL RDW Coeff of Bud 16.0 H (11.5-14.5) % BUN/Creatinine Ratio 37.1 H (10-20) Glucose 119 H (70-99(Fasting)) mg/dl Diagnostic Findings Chest X-Ray 09/06/23 15:52 XR chest 1V not portable HISTORY: 23 years-old Female Chest pain, nonspecific COMPARISON: CTA chest 07/03/2023 TECHNIQUE: AP view of the chest FINDINGS: Cardiomediastinal and hilar silhouettes are within normal limits. No pneumothorax, pleural effusion or airspace consolidation. The bones of the chest appear grossly intact. IMPRESSION: No acute process. ACT 112: Negative or not required by law. The above report was generated using voice recognition software. It may contain grammatical, syntax or spelling errors. Electronically signed by: Saw Diaz M.D. 09/06/2023 5:05 PM Chest CTA 06/14/24 16:01 CT angio chest PE protocol CLINICAL HISTORY: Hx of PE, SOB, left chest/back pain TECHNIQUE: Multidetector row helical CT of the chest was performed with angiographic protocol. Coronal and sagittal reformations were obtained. Coronal and sagittal MIPS were obtained from the axial data set and were submitted for review. Automated dose lowering techniques and/or adjustment according to patient size were utilized for this exam. CT DOSE: 706.6 mGy.cm Comparison: Comparison is made to CT chest 07/03/2023 FINDINGS: Lungs and pleura: Airspace opacities are seen in the bilateral lower lung. No suspicious pulmonary nodules. Heart and pericardium: Heart size is normal. No pericardial effusion. Vessels: There is occlusion of left lower lobe segmental branches as well as subsegmental branches of the right lower lobe. Mediastinum and karla: Unremarkable. Chest wall and lower neck: Bilateral breast implants are seen. Abdomen: Unremarkable. Bones: Unremarkable. IMPRESSION: Findings are compatible with segmental and subsegmental pulmonary emboli in the bilateral lower lobes with resulting pulmonary infarcts. No right heart strain. ACT 112: Negative or not required by law. Electronically signed by: Miguel Cerrato M.D. 09/06/2023 6:35 PM ECG Additional Comments: Normal sinus rhythm Nonspecific ST and T wave abnormality Abnormal ECG When compared with ECG of 01-MAY-2023 18:03, No significant change was found Confirmed by Héctor Ellison ([id number]) on 09/06/2023 5:31:57 PM Code Status & VTE Plan Code Status Full code VTE Prophylaxis Plan VTE Prophylaxis will be ordered: Yes Supervising Physician Co-Signing Physician Notes Attending addendum: I have physically seen this patient, have supervised the DULCE's activities, and agree with the H&P unless as otherwise noted. Assessment and Plan: Bilateral pulmonary emboli with pulmonary infarcts/lupus anticoagulant- CTA with bilateral lower lobe segmental and subsegmental pulmonary emboli with pulmonary infarcts Patient has a reported history of failing Eliquis therapy More recently had been on warfarin, however, due to not showing up for appointments to the anticoagulation clinic, she was dismissed, and advised to reschedule INR on admission 1.0 For tonight, place patient on heparin drip standard dosing per protocol Order echocardiogram To be determined course of long-term anticoagulation, in large part pending upon patient's ability to comply Her situation is complicated by frequent travel Borderline personality disorder- Not currently on treatment Medical noncompliance PG Care Time/CCT Total # of Minutes Spent Total Time Spent with Patient: Total time spent is greater than 50% in coordination of care (as documented) at patient's floor/unit and/or counseling patient: Coding [place] [address] INT INP/OBS CARE 3/75MIN Patient Type Established Medical Decision Making High Complexity Diagnoses Bilateral pulmonary embolism I26.99 Lupus anticoagulant disorder D68.62 Borderline personality disorder F60.3 Anemia D64.9
--- NOTE | 2023-09-06 21:05 | Ultrasound Report ---
US venous doppler LE BI CLINICAL HISTORY: PEs, r/o DVT TECHNIQUE: Right lower extremity real-time compression venous ultrasound with Color Doppler imaging. Utilizing real-time ultrasonic imaging multiple real time high-resolution ultrasonic images with comp ression and noncompression maneuvers of the deep venous system in addition to color doppler imaging w ere performed from the common femoral vein through the proximal calf veins. COMPARISON: Comparison is made to Doppler ultrasound of the lower extremity 05/01/2023 FINDINGS/IMPRESSION: Currently there is normal compressibility of the deep venous system from the common femoral vein thro ugh the proximal calf veins. Incidental note is made of a hypoechoic lesion measuring 1.3 x 2.4 x 0. 6 cm in the right medial calf without internal flow, nonspecific but may represent lymph node or othe r benign finding. ACT 112: Negative or not required by law. Electronically signed by: Miguel Cerrato M.D. 09/06/2023 9:04 PM
[2023-09-06 21:47] LABS: Partial Thromboplastin Ratio 2.7; Partial Thromboplastin Time 73 Seconds (21-31)
[2023-09-06] MEDS: MoRPHine SULFATE 2 MG/ML CARP IV PRN (21:56)
[2023-09-07 02:34] LABS: Basophils # (auto) 0.02 K/uL (0.00-0.20); Basophils % (auto) 0.3 %; Eosinophils # (auto) 0.14 K/uL (0.00-0.50); Eosinophils % (auto) 1.9 %; Hemoglobin 11.2 g/dl (12.0-16.0); Immature Granulocytes # (auto) 0.03 K/uL (0.01-0.20); Immature Granulocytes % (auto) 0.4 %; Lymphocytes # (auto) 2.62 K/uL (1.20-3.40); Lymphocytes % (auto) 35.5 %; Mean Corpuscular Hemoglobin 24.3 pg (25.0-34.0); Mean Corpuscular Hgb Conc 31.1 g/dL (32.0-36.0); Mean Corpuscular Volume 78.1 fL (80.0-100.0); Mean Platelet Volume 10.9 fL (9.4-12.4); Monocytes # (auto) 0.59 K/uL (0.11-0.59); Neutrophils # (auto) 3.98 K/uL (1.40-6.50); Neutrophils % (auto) 53.9 %; Platelet Count 212 K/uL (130-400); RDW Standard Deviation 45.4 fL (36.4-46.3); Red Blood Count 4.61 M/uL (4.20-5.40); White Blood Count 7.38 K/ul (4.8-10.8)
[2023-09-07 02:47] LABS: Alanine Aminotransferase 14 U/L (7-52); Albumin Level 3.4 gm/dl (3.4-5.0); Alkaline Phosphatase 50 U/L (34-104); Anion Gap 5 (3-11); Aspartate Aminotransferase 15 U/L (13-39); BUN Creatinine Ratio 31.1 (10-20); Bilirubin,Total 0.2 mg/dl (0.2-1.0); Blood Urea Nitrogen 19 mg/dl (6-23); Calcium 8.8 mg/dl (8.6-10.3); Carbon Dioxide 23 mmol/L (21-32); Chloride 108 mmol/L (98-107); Est GFR (African American) > 150.0 ml/min; Est GFR (Non-African American) 129.6 ml/min; Globulin 3.5 gm/dl (2.5-4.0); Glucose 99 mg/dl (70-99(Fasting)); Magnesium 1.8 mg/dl (1.7-2.4); Potassium 3.9 mmol/L (3.5-5.1); Sodium 136 mmol/L (136-145); Total Protein 6.9 gm/dl (6.0-8.3)
[2023-09-07 03:17] LABS: ANTI-Xa, UFH(UnfractionatedHep 0.33 IU/ml (0.3-0.7); INR 1.1 (0.9-1.1); Prothrombin Time 12.1 Seconds (9.0-12.0)
[2023-09-07] MEDS: ONDANSETRON INJ 2 MG/ML 2 ML VIAL IV PRN (03:31)
[2023-09-07 09:23] LABS: Iron 32 mcg/dl (35-150); Total Iron Binding Cap Calc 354 mcg/dl (250-450); Transferrin (FE) Percent Satur 9 % (15-50); Unsaturated Iron Binding Cap 322 mcg/dl (155-355)
[2023-09-07] MEDS: WARFARIN SOD 10 MG TAB PO ONE (10:12)
--- NOTE | 2023-09-07 10:30 | Hospitalist Progress Note ---
Date of Service September 07, 2023 Assessment & Plan (1) Bilateral pulmonary embolism: Plan: Patient reported worsening chest pain and shortness of breath upon arrival to ED on 09/06/2023. She had not taking any anticoagulants x 2 weeks for history of PE/DVT's due to running out of her medications. Patient does have a complex history regarding b/l PE's. She was diagnosed in Mar 2023 and "failed" initial Eliquis therapy due to being positive for lupus anticoagulant disorder. She then was noncompliant with warfarin therapy and was discharged from the anticoagulation clinic. Admit to med telemetry on pulse oximetry lower back pain improving but still present. Shortness of breath is resolved. -Reviewed labs 09/06: Hgb dec at 11.2. PT/INR 12.1/1.1. Reviewed CTA 09/05: b/l PE in lower lobes of lungs. No right heart strain. -Reviewed venous doppler 09/05: negative DVT. hypoechoic lesion 1.3x2.4x0.6cm right medical calf w/o internal flow (possible lymph node or other benign finding) -Discussed with patient anticoagulant options. She is agreeable to be placed on Warfarin. She was given 10mg Warfarin 09/05 AM. -Will arrange for follow up with anticoagulation clinic on discharge. -Will repeat CBC, BMP, PT/INR in AM. (2) Lupus anticoagulant disorder: Plan: See bilateral pulmonary embolism plan (3) Anemia: Plan: Patient has known history of iron deficiency anemia. Reviewed labs 09/06: hgb 11.2, MCV 78.1, Fe 32, TIBC 354, transferrin % 9 Consider Venofer infusion prior to discharge along with ferrous sulfate to prevent further decline Plan Diet: regular DVT prophylaxis: heparin drip Code status: full -Disposition: med/tele Admission and Anticipated Discharge Date Admission Date: September 06, 2023 Subjective Patient seen and examined this morning at bedside. Patient reports her shortness of breath has subsided and she is no longer experiencing this. She is still experiencing left sided back pain with occasional radiation to her chest. She reports she notices this with lying down and deep inspiration. She reports she also notices it with talking/laughing. She is interested in resuming Warfarin upon discharge. She states she will be compliant with the anticoagulation clinic after discharge and she does have someone back home to manage her INR. She is eager to return home. Physical Exam 2 Constitutional: WD/WN, vitals as above Eyes: PERRL, conjunctivae normal, anicteric sclerae Respiratory: normal respiratory effort, lungs clear to auscultation Cardiovascular: RRR, no murmur, no edema Musculoskeletal: no cyanosis or clubbing, extremities motor strength 5/5 Skin: no rashes, warm and dry no ecchymosis or tenderness b/l lower back Neurologic: PERRL, EOMI, accommodation nl, no face palsy, no dysarthria Psychiatric: A+Ox3, euthymic affect Results & Data Results & Data Vital Signs (Past 12 Hours) Vital Signs Temp Pulse Pulse Resp BP Pulse Ox O2 Del Method 09/07/23 09:05 Room Air 09/07/23 07:54 36.9 C 64 18 103/68 96 Room Air 09/07/23 07:07 67 09/07/23 03:29 36.6 C 70 16 104/66 98 Room Air Laboratory Results 09/07/23 02:16 09/07/23 02:16 Diagnostic Findings Chest X-Ray 09/06/23 15:52 XR chest 1V not portable IMPRESSION: No acute process. Electronically signed by: Saw Diaz M.D. 09/06/2023 5:05 PM Chest CTA 09/06/23 16:01 IMPRESSION: Findings are compatible with segmental and subsegmental pulmonary emboli in the bilateral lower lobes with resulting pulmonary infarcts. No right heart strain. Venous Doppler Study 09/06/23 19:25 US venous doppler LE FINDINGS/IMPRESSION: Currently there is normal compressibility of the deep venous system from the common femoral vein through the proximal calf veins. Incidental note is made of a hypoechoic lesion measuring 1.3 x 2.4 x 0.6 cm in the right medial calf without internal flow, nonspecific but may represent lymph node or other benign finding. Electronically signed by: Miguel Cerrato M.D. 09/06/2023 9:04 PM PG Care Time/CCT Total # of Minutes Spent Total Time Spent with Patient: Total time spent is greater than 50% in coordination of care (as documented) at patient's floor/unit and/or counseling patient: Coding Level of Care Code 97725 SUB INP/OBS CARE 3/50MIN Diagnoses Bilateral pulmonary embolism I26.99 Lupus anticoagulant disorder D68.62 Iron deficiency anemia, unspecified iron deficiency anemia type D50.9 Anemia type: iron deficiency Iron deficiency anemia type: unspecified iron deficiency (3) Anemia Anemia type: iron deficiency Iron deficiency anemia type: unspecified iron deficiency Qualified Code(s): D50.9 - Iron deficiency anemia, unspecified
--- NOTE | 2023-09-07 14:22 | XCELERA ---
[id number]
--- NOTE | 2023-09-07 17:34 | Discharge Summary ---
Date of Service September 07, 2023 Admission HPI Per Admitting Provider Patient is a 23-year-old female with a past medical history significant for lupus anticoagulant disorder, pulmonary emboli, right lower extremity DVT, borderline personality disorder, bulimia, who presented to the [facility] emergency department on 09/06/2023 due to ongoing shortness of breath and chest pain chest pain consistent with her previously diagnosed pulmonary emboli. Patient was initially diagnosed with pulmonary emboli in March of this past year after she returned from her home in [facility] where she had multiple cosmetic procedures performed. The patient was initially started on Eliquis but subsequently returned to the [facility] ED in early April and was found to have failed Eliquis therapy. She was subsequently started on warfarin with Lovenox bridge. Per anticoagulation clinic documentation, the patient had missed multiple appointments to check her INR and was not rescheduling. Per anticoagulation clinic policy she was discharged due to recurrent missed appointments. Per the anticoagulation clinic note on 07/04/2023, the patient emailed the clinic the following day after being discharged and reported that she had missed multiple appointments and failed to reschedule as her mother had passed and she had been bed bedbound due to grief. On arrival to the ED today she was noted to be stable. Labs were significant for an MCV of 78, MCHC of 31, negative hCG, and full respiratory BioFire negative. Chest x-ray was read as negative for acute findings. CTA of the chest PE protocol was read as findings being compatible with segmental and subsegmental pulmonary emboli in the bilateral lower lobes with resultant pulmonary infarcts. They reported no signs of right heart strain. Prior to admission the patient was initiated on a heparin drip at the request of hospital medicine team. Patient was sitting in bed no acute distress at the time of exam. She confirms that she missed multiple appointments with anticoagulation clinic after the in her family. She states that she then started following up with her PCP who had continued her on warfarin. She was struggling to get caught up on the classwork that she had been missing after the in her family, and states that she failed to follow-up with her PCP after she ran out of warfarin. Over the past 1 to 2 weeks she has been experiencing increased back pain and shortness of breath. She initially attributed this to weight lifting however symptoms continue to progress which is why she presented to the ED today. The patient denies recent fever, chills, new paresthesias/unilateral weakness, changes in vision, hearing, taste, smell, cough, hemoptysis, abdominal pain, nausea, vomiting, diarrhea, dysuria, hematuria, melena, bloody BM's, and recent trauma. When asked, the patient also denies recent suicidal or homicidal ideations. Please refer to Dr. Limon's attestation for any changes to the treatment plan Principal Diagnosis bilateral pulmonary emboli Discharge Exam Constitutional WD/WN, vitals as above Eyes PERRL, conjunctivae normal, anicteric sclerae Respiratory normal respiratory effort, lungs clear to auscultation Cardiovascular RRR, no murmur, no edema Musculoskeletal no cyanosis or clubbing, extremities motor strength 5/5 Skin no rashes, warm and dry Neurologic PERRL, EOMI, accommodation nl, no face palsy, no dysarthria Psychiatric A+Ox3, euthymic affect Discharge Data Allergies Allergy/AdvReac Type Severity Reaction Status Date / Time No Known Allergies Allergy Verified 09/06/23 19:51 Consultations 09/06/23 19:25 ED Decision to Admit Stat Ordered Studies 09/07/23 02:16 09/07/23 02:16 Chest X-Ray 09/06/23 15:52 XR chest 1V not portable IMPRESSION: No acute process. Electronically signed by: Saw Diaz M.D. 09/06/2023 5:05 PM Chest CTA 09/06/23 16:01 CT angio chest PE protocol IMPRESSION: Findings are compatible with segmental and subsegmental pulmonary emboli in the bilateral lower lobes with resulting pulmonary infarcts. No right heart strain. Electronically signed by: Miguel Cerrato M.D. 09/06/2023 6:35 PM Venous Doppler Study 09/06/23 19:25 US venous doppler LE FINDINGS/IMPRESSION: Currently there is normal compressibility of the deep venous system from the common femoral vein through the proximal calf veins. Incidental note is made of a hypoechoic lesion measuring 1.3 x 2.4 x 0.6 cm in the right medial calf without internal flow, nonspecific but may represent lymph node or other benign finding. Electronically signed by: Miguel Cerrato M.D. 09/06/2023 9:04 PM Hospital Course (1) Bilateral pulmonary embolism: Patient reported worsening chest pain and shortness of breath upon arrival to ED on 09/06/2023. She had not taking any anticoagulants x 2 weeks for history of PE/DVT's due to running out of her medications. Patient does have a complex history regarding b/l PE's. She was diagnosed in Mar 2023 and "failed" initial Eliquis therapy due to being positive for lupus anticoagulant disorder. She then was noncompliant with warfarin therapy and was discharged from the anticoagulation clinic. Patient had labs 09/06 which were hgb 11.2 and PT/INR 12.1/1.1. CTA 09/05 was positive for bilateral PE in lower lobes of lungs. No right heart strain. Echo from 09/06 was normal. Doppler from 09/05 was negative for DVT but positive for a benign lesion in her right medial calf. Patient requested to be placed back on Warfarin after discussion and was originally agreeable to continuing her hospital stay for management. However around 1699, the nurse informed me that patient was requesting to sign out AMA. Patient was sent in anticoagulation to pharmacy. She was instructed to take 10mg Warfarin x 2 days then 7.5mg daily thereafter. She was given Lovenox BID x 2 days. She was given an order to have her PT/INR re-checked on 09/08. She was encouraged to follow up with PCP and anticoagulation clinic within next week. Anticoagulation clinic did dismiss patient in June 2023 due to noncompliance. Will have to discuss this with case management on 09/07 to see if they will take her back to their practice. Lengthy discusison with patient took place regarding risks of signing out AMA including worsening SOB/Chest pain/back pain, cardiac arrest, and . Following discussion patient still requested to sign out AMA. (2) Lupus anticoagulant disorder: See bilateral pulmonary embolism plan (3) Anemia: Patient has known history of iron deficiency anemia. labs did indicate on 09/06 hemoglobin of 11.2, MCV 78.1, Fe 32, TIBC 354, transferrin% 9. This can be further followed up with her PCP at follow up appointment. She would likely benefit from ferrous sulfate. Total Time Total Time Spent Total Time Spent (In Minutes): 35 Discharge Plan Discharge Items Patient Disposition: Against Medical Advice Reason For Visit: PULMONARY EMBOLI Activity: Resume your previous activity Non-emergency contact: Primary Care Provider Follow-up/Referrals: Oumou Ramirez MD [Primary Care Provider] - Ambulatory Orders: Prothrombin Time INR (Timed) Timeframe: [id number] Location: Determined by Patient Ordered By: Tamara Florentino [facility] Provider Instructions: Ms. Vásquez, You were hospitalized for findings of bilateral pulmonary embolisms on a CAT scan. We gave you anticoagulation via heparin drip and one dose of 10mg Warfarin. -Please take Warfarin 10mg daily for two days and then 7.5 mg daily after. -Sent to your pharmacy were two prescriptions of warfarin. Please follow instructions on the prescription. -Please take enoxaparin 100mg/mL subcutaneously twice daily for two days. -Please report to get INR rechecked on 09/09/2023. -Please follow up with PCP within 1 week -Please re-established care at anticoagulation clinic for further monitoring -If you develop any worsening shortness of breath, chest pain, back pain please report back to the emergency room immediately. Sincerely, Tamara Florentino PA-C Pending Studies at Discharge: No Stand-Alone Forms: My LookIt, Smoking Cessation Skilled Items Patient informed of condition?: Yes Medications and DC Order Prescriptions: New warfarin 2.5 mg tablet 2.5 mg PO DAILY Qty: 30 0RF Rx Instructions: Take 1 - 2.5mg tablet daily starting 09/09 warfarin 5 mg tablet 5 mg PO DAILY Qty: 30 0RF Rx Instructions: Take 2 tablets for 2 days then 1 tablet daily enoxaparin [Lovenox] 100 mg/mL syringe 90 mg subcut Q12H Qty: 3.6 0RF Rx Instructions: Twice daily for two days Discontinued warfarin 5 mg tablet 10 mg PO QPM Rx Instructions: Patient usually takes medication in the evening. But, missed dose on the evening of 09/05/23, so they took it on the morning of 09/06/23 Discharge Orders: Left Against Medical Advice (Routine); Ordered 09/07/23 Ordered By: Tamara Florentino Admission Data Admit Date/Time: 09/06/23 20:04 Attending Provider: Dmitriy Hayden Admit Provider: Andrzej Limon Primary Care Provider: Oumou Ramirez Other Providers: Andrzej Limon Supervising Physician Co-Signing Physician Notes Patient signed out against medical advice. Patient was able to make medical decisions and showed understanding of risks of leaving against medical advice to staff. Patient was not seen by me. Coding Level of Care Code 06609 INP/OBS DISCH >30 MIN Diagnoses Bilateral pulmonary embolism I26.99 Lupus anticoagulant disorder D68.62 Iron deficiency anemia, unspecified iron deficiency anemia type D50.9 Anemia type: iron deficiency Iron deficiency anemia type: unspecified iron deficiency
--- NOTE | 2023-09-07 22:51 | Billing Data ---
Date of Service September 07, 2023 Coding Level of Care Code 82741 INT INP/OBS CARE
== END 2023-09-07 18:18 | disposition left against medical advice (07) | DRG 176 ==
LOC: ED 15:40 → SUATTDRO 20:04 → 2N 20:04